=== PATIENT | female | born 1995 | race Caucasian/White ===

== ENCOUNTER 2021-02-11 07:03 | Inpatient (IN) | payer BC, SELFPAY ==
[2021-02-11] VITALS (43 sets, daily range): BP systolic 96–142; BP diastolic 48–108; PULSE 62–109; RESP 18; TEMP 36.4–36.9; O2SAT 99–100; BMI 23.4
--- NOTE | 2021-02-11 07:27 | WPDOBADMIT ---
Obstetrics - Admit Note Admission Note: record reviewed. No pertinent additions to the history and/or any subsequent changes in the physical findings that are not consistent with the expected course of the were found. Pt arrived after SROM at home, clear fluid, anticipate vaginal delivery Additions to the history and/or subsequent changes in the physical findings follow. None.
--- NOTE | 2021-02-11 07:36 | LDADM ---
This patient, Traci Campoverde, was admitted to Labor/Delivery/Recovery 108 on 02/11/21 at 07:03. Plans for labor, pain management and were discussed with patient. Patient/family oriented to hospital policies and general routines including ID bracelet, bed and alarms, visiting hours, pain management, procedures, bathroom and other care routines, personal items, smoking policy, room service/diet and guest tray routines, security routines, and visiting hours. Patient/Family are encouraged to report perceived risks to care and to ask questions if they do not understand what they are told or what they should do. See OBIX for further documentation.
[2021-02-11 07:56] LABS: Basophils Percent Auto 0.6 % (0.2-1.2); Eosinophils Absolute Auto 0.1 K/mm3 (0-0.3); Eosinophils Percent Auto 1.5 % (0-4.4); Hematocrit 34.8 % (37.0-47.0); Hemoglobin 11.4 g/dL (12.0-15.0); Immature Granulocyte Absolute 0.01 K/mm3 (0.00-0.031); Immature Granulocyte Percent A 0.1 % (0-0.5); Lymphocytes Absolute Auto 2.34 K/mm3 (0.9-3.2); Lymphocytes Percent Auto 34.1 % (18.3-44.2); Mean Corpuscular HGB Conc 32.8 g/dl (32-36); Mean Corpuscular Hemoglobin 31.6 pg (26-34); Mean Corpuscular Volume 96.4 fl (80-100); Mean Platelet Volume 12.4 fl (7.4-10.4); Monocytes Absolute Auto 0.5 K/mm3 (0.1-0.6); Monocytes Percent Auto 7.6 % (2.6-8.5); Neutrophils Absolute Auto 3.9 K/mm3 (1.3-6.7); Neutrophils Percent Auto 56.1 % (45.5-73.1); Platelet Count Result 133 k/mm3 (150-375); Red Blood Count 3.61 M/mm3 (4.2-5.4); Red Cell Distribution Width 12.2 % (11.5-14.5); White Blood Count 6.9 K/mm3 (4.5-10.0)
[2021-02-11] MEDS: LACTATED RINGERS 1,000 ML 125 ML IV CONT ×2 (09:00→09:25)
--- NOTE | 2021-02-11 09:25 | WPDANESEPP ---
Anes - Eval Pre Procedure Procedure: labor epidural Date/Time: 02/11/21 09:25 Surgeon: sabrina Pre Op Diagnosis: Leaking Fluid Patient Data Age: 25 Gender: F Height: 1.6 m Weight: 60 kg Last Vital Signs Temp 36.4 C 02/11/21 08:00 Pulse 67 02/11/21 09:15 BP 136/89 02/11/21 09:15 Allergies Allergy/AdvReac Type Severity Reaction Status Date / Time No Known Allergies Allergy Unverified 07/13/15 18:36 Home Medications Medication Instructions Recorded Confirmed Type PNV cmb#95-ferrous fumarate-FA 1 tablet PO DAILY 02/03/21 02/11/21 History [] ferrous sulfate [Iron (ferrous 325 mg PO DAILY 02/03/21 02/11/21 History sulfate)] Laboratory Tests 02/11/21 02/11/21 02/11/21 07:26 07:26 07:26 WBC 6.9 K/mm3 K/mm3 (4.5-10.0) RBC 3.61 M/mm3 L M/mm3 (4.2-5.4) Hgb 11.4 g/dL L g/dL (12.0-15.0) Hct 34.8 % L % (37.0-47.0) MCV 96.4 fl fl (80-100) MCH 31.6 pg pg (26-34) MCHC 32.8 g/dl g/dl (32-36) RDW 12.2 % % (11.5-14.5) Plt Count 133 k/mm3 L k/mm3 (150-375) MPV 12.4 fl H fl (7.4-10.4) Immature Gran % (Auto) 0.1 % % (0-0.5) Neut % (Auto) 56.1 % % (45.5-73.1) Lymph % (Auto) 34.1 % % (18.3-44.2) [place] % (Auto) 7.6 % % (2.6-8.5) Eos % (Auto) 1.5 % % (0-4.4) Baso % (Auto) 0.6 % % (0.2-1.2) Lymph # (Auto) 2.34 K/mm3 K/mm3 (0.9-3.2) [place] # (Auto) 0.5 K/mm3 K/mm3 (0.1-0.6) Eos # (Auto) 0.1 K/mm3 K/mm3 (0-0.3) Baso # (Auto) 0.0 K/mm3 K/mm3 (0.0-0.1) Abs Immat Gran (auto) 0.01 K/mm3 K/mm3 (0.00-0.031) Absolute Neuts (auto) 3.9 K/mm3 K/mm3 (1.3-6.7) Absolute Nucleated RBC 0.0 K/mm3 K/mm3 (0.0-0.012) Nucleated RBC % 0.0 % % (0.0-0.2) RPR Pending Blood Type O Positive Antibody Screen Negative Patient hx anesthesia problems: none Family hx anesthesia problems: none COUNTS INCLUDE 234 BEDS AT THE [facility] Family History Family History (Updated 02/03/21 @ 15:43 by Jory Wilson RN) Other No pertinent family history Social History Social History Smoking status: Never smoker Substance use: never Gender identity (if verbalized by the patient): Female Spiritual care concerns: No Exam Day of Procedure 02/11/21 09:25
--- NOTE | 2021-02-11 11:33 | PM.OBPRVD ---
OB - Delivery Note Procedure Delivery date: 02/11/21 Procedure: vaginal delivery Intrapartal events: None Induction method: none Delivery monitor: external FHT and external uterine Route of delivery: Laceration Description: Perineal - 2nd Degree and Labial (bilateral) Delivery repair: vicryl Specimen: Yes Quantitative Blood Loss (ml): 165 Anesthesia type: Epidural Disposition: floor Baby Date of : 02/11/21 Time of : 11:12 Weeks of gestation at delivery: 39 Infant gender: Female Weight (pounds): 5 Weight (ounces): 15 presentation: vertex position: Left Occiput Anterior Placenta delivery description: Spontaneous cord vessel description: 3 Vessels and Around Body x1 score one minute: 9 score five minutes: 9 Narrative: mother and baby skin to skin in stable condition
[2021-02-11] MEDS: LANOLIN (LANSINOH) 7.5 GM CREAM 1 APPLIC TOPICAL (14:30)
[2021-02-11] MEDS: DIBUCAINE 1% OINTMENT 30 GM TUBE 1 APPLIC TOPICAL (14:30)
[2021-02-11] MEDS: BENZOCAINE 20% AER SPR (*SP) 56 GM CAN 1 SPRAY TOPICAL (14:30)
[2021-02-11] MEDS: WITCH HAZEL 40 PADS 1 PAD TOPICAL (15:38)
[2021-02-11] MEDS: IBUPROFEN 600 MG TABLET PO (19:41)
[2021-02-12 01:00] VITALS: BP 92/44; PULSE 60; RESP 18; TEMP 36.6
[2021-02-12 04:37] VITALS: BP 105/64; PULSE 58; RESP 18; TEMP 36.6
[2021-02-12 05:09] LABS: Hematocrit 26.2 % (37.0-47.0); Hemoglobin 8.7 g/dL (12.0-15.0)
--- NOTE | 2021-02-12 07:36 | WPDANLDPN2 ---
Anes-Prog Note L&D Date/Time: 02/12/21 07:36 Comfortable throughout: labor and delivery Neuraxial method: epidural Epidural/Spinal procedure site: clean & non-tender Neuro status: Neuro function grossly intact. Cardiovascular status: normal Respiratory status: normal Airway patency: baseline Mental status: baseline Post-Op hydration status: normal Vital Signs: Last Vital Signs Temp 36.6 C 02/12/21 04:37 Pulse 58 L 02/12/21 04:37 Resp 18 02/12/21 04:37 BP 105/64 02/12/21 04:37 Pulse Ox 100 02/11/21 14:15 Pain score (VAS): 0 I/O: Intake & Output 02/11/21 02/11/21 02/12/21 15:59 23:59 07:59 Intake Total 2000 Output Total 165 Balance 1835 Post-procedural complaints: none Patient feedback: Patient satisfied with anesthetic care.
--- NOTE | 2021-02-12 07:52 | P.PNOB_ITS ---
OB - PN: Subj Subjective Date/time seen: 02/12/21 07:52 Patient comments: no complaints baby status: doing well OB - PN: Obj Data Labs CBC & Chem 7: 02/12/21 04:46 Labs: Laboratory Results - last 24 hr 02/11/21 02/11/21 02/12/21 07:26 07:26 04:46 WBC 6.9 RBC 3.61 L Hgb 11.4 L 8.7 L Hct 34.8 L 26.2 L MCV 96.4 MCH 31.6 MCHC 32.8 RDW 12.2 Plt Count 133 L MPV 12.4 H Immature Gran % (Auto) 0.1 Neut % (Auto) 56.1 Lymph % (Auto) 34.1 [place] % (Auto) 7.6 Eos % (Auto) 1.5 Baso % (Auto) 0.6 Lymph # (Auto) 2.34 [place] # (Auto) 0.5 Eos # (Auto) 0.1 Baso # (Auto) 0.0 Abs Immat Gran (auto) 0.01 Absolute Neuts (auto) 3.9 Absolute Nucleated RBC 0.0 Nucleated RBC % 0.0 Blood Type O Positive Antibody Screen Negative OB - PN A/P Plan day: 1 Plan: routine care Time Spent With Patient Time: Total time spent is greater than 50% in coordination of care (as docume nted) at patient's floor/unit and/or counseling patient: Time with patient: less than 15 minutes Review of Systems Review of Systems: All systems reviewed & are unremarkable except as noted in HPI and below Exam Narrative: Fundus firm and vaginal flow controlled. No lower ext redness, warmth, or edema. Negative homans. Const: General: comfortable Chest: Breast/axilla inspection: normal inspection of the breasts Resp: Effort & Inspection: normal respiratory effort Cardio: Rate: regular rate GI: GI Palp: Yes Soft to palpation Psych: Appearance: grossly normal Affect: normal affect Attitude: massage coordinator perative Thought content: Yes Normal thought content present Judgement: Good judgement present (Psych)
[2021-02-12 08:05] LABS: Rapid Plasma Reagin Non-Reactive (NonReactive)
[2021-02-12 08:10] VITALS: BP 115/54; PULSE 77; RESP 18; TEMP 37.2; O2SAT 100
[2021-02-12] MEDS: DOCUSATE SODIUM 100 MG CAPSULE PO ×2 (08:34→16:46)
[2021-02-12] MEDS: MULTIVIT/MIN/PREN/FOL AC/IRON TABLET 1 TAB PO (08:34)
[2021-02-12] MEDS: IBUPROFEN 600 MG TABLET PO ×2 (08:34→16:46)
[2021-02-12] MEDS: POLYSACCHARIDE IRON COMPLEX 150 MG CAPSULE PO ×2 (08:34→16:46)
--- NOTE | 2021-02-12 11:25 | PC.NURSE ---
Mother called out for assist with feeding, reporting is eagerly latching to left and not latching to right. Right nipple has a large natural center crease with less profile than left. Mother reports pain with latch bilaterally. Nipple care reviewed of lanolin after feedings, warm compresses as needed. Infant is able to freely thrust tongue past gum ridge and flange both lips. Skin is intact on both nipples, redness noted. Reviewed feeding cues, frequencies, duration of feedings, feeding elimination flow sheet, and signs of adequate intake. Demonstrated stimulation techniques to wake for feeding. Assisted with to breast. Reviewed positioning/alignment in cross cradle, holding breast in ?U? hold and guided asymmetrical latch on. Discussed rational for each. Suggested mother stimulate and roll right nipple to draw it out. Several attempts before infant able to latch correctly to right. Infant nursed eagerly, with steady draws and frequent swallowing noted. Suggested mother stimulate while feeding to increase stimulate, increase intake and to assist with maintaining deep latch. Reviewed signs of a correct latch, effective nursing and suck swallow ratio. Infant would slip to shallow latch, mother reports tenderness. Demonstrated how to adjust latch more deeply while feeding. Mother reports she can feel change in latch and has no tenderness. Instructed mother to call out for RN assistance if she is unable to latch for feeding or she has discomfort with nursing. Mother reports she is unsure if she will continue with nursing due to difficulties with latching. Discussed pumping and bottle feeding if she choose to switch.
[2021-02-12 12:30] LABS: Hematocrit 30.1 % (37.0-47.0); Hemoglobin 9.8 g/dL (12.0-15.0); Mean Corpuscular HGB Conc 32.6 g/dl (32-36); Mean Corpuscular Hemoglobin 31.9 pg (26-34); Mean Platelet Volume 11.8 fl (7.4-10.4); Platelet Count Result 124 k/mm3 (150-375); Red Blood Count 3.07 M/mm3 (4.2-5.4); Red Cell Distribution Width 12.3 % (11.5-14.5)
[2021-02-12 20:30] VITALS: BP 122/82; PULSE 72; RESP 15; TEMP 36.7; O2SAT 100
[2021-02-13 08:05] VITALS: BP 120/76; PULSE 64; RESP 16; TEMP 36.4; O2SAT 100
--- NOTE | 2021-02-13 08:06 | PM.OBPNVD ---
OB - PN: Subj Subjective Date/time seen: 02/13/21 08:06 Patient comments: no complaints baby status: doing well OB - PN: Obj Data Labs CBC & Chem 7: 02/12/21 12:19 Labs: Laboratory Results - last 24 hr 02/12/21 12:19 WBC 10.0 RBC 3.07 L Hgb 9.8 L Hct 30.1 L MCV 98.0 MCH 31.9 MCHC 32.6 RDW 12.3 Plt Count 124 L MPV 11.8 H OB - PN A/P Plan day: 2 Plan: routine care and discharge home (F/U in 4 weeks) Time Spent With Patient Time: Total time spent is greater than 50% in coordination of care (as documented) at patient's floor/unit and/or counseling patient: Time with patient: less than 15 minutes Review of Systems Review of Systems: All systems reviewed & are unremarkable except as noted in HPI and below Exam Narrative: Fundus firm and vaginal flow controlled. No lower ext redness, warmth, or edema. Negative homans. Const: General: comfortable Chest: Breast/axilla inspection: normal inspection of the breasts Resp: Effort & Inspection: normal respiratory effort Cardio: Rate: regular rate GI: GI Palp: Yes Soft to palpation Psych: Appearance: grossly normal Affect: normal affect Attitude: cooperative Thought content: Yes Normal thought content present Judgement: Good judgement present (Psych)
--- NOTE | 2021-02-13 08:45 | PC.NURSE ---
Consult with pt., mother reports she had a difficult night with latching and pain with feedings. Both nipples are reddened, reviewed nipple care of lanolin after feeding and before pumping, warm compresses several times a day and gel pads to promote healing. Mother reports she continues to have more difficulties and discomfort with latch to right breast. Mother states she will put infant to breast on left breast and will pump and bottle feed when is to feed on right breast until nipple is healed. Discussed supplementation and paced feeding, reviewed may require supplement after feeding on left breast if she is not putting to right breast. Mother will supplement as infant desires. Mother has a Spectra pump for home use and does not wish to initiate pumping in the hospital. Reviewed breast pump care and usage, pumping schedule, nipple care, and collection and storage of breast milk. Encouraged [id number], breast massage and manual expression to stimulate supply. Assessed patient for correct flange size(suggested mother try the 24mm and advised most likely a 21mm), placement and draw. Patient verbalizes and demonstrates understanding of instructions. Mother to independently latch with appropriate positioning/alignment on left breast. She is feeding as required and waking infant to feed if needed. has had at least 8 feedings in the past 24 hours with supplementation, and is currently meeting outcomes for weight, output, jaundice and feeding frequencies. Mother states she feels confident to continue effective at home. Reviewed transition to breast milk, signs of adequate intake, and engorgement/relief. Instructed to call ICP if intake/output less than required. Reviewed regular medications mother is taking. Information provided per [place]. Reviewed community resources on the [facility] website and in the Mom/Baby guide. Information on outpatient services provided. Mother has no further questions at this time.
[2021-02-13 12:44] VITALS: PULSE 64; RESP 16; O2SAT 100
[2021-02-15 09:49] VITALS: BP 106/73; PULSE 71; RESP 20; TEMP 37; O2SAT 100
--- NOTE | 2021-03-11 10:07 | PM.OBDSVD ---
DS: Admitting Diagnosis Admitting Diagnosis Labor OB - DS: Summary OB Procedures : None OB Procedures Intrapartum: Spontaneous Vag Delivery OB Procedures: : None Time Spent with Patient Time attestation: Total time spent providing and/or coordinating discharge services: DS: Data Data Completed and Pending Completed studies during hospitalization: Pending at discharge 02/11/21 11:45 Surgical [PTH] Routine Discharge Plan Discharge Attending physician on discharge: Lorie Duran Consulting providers: Lorie Duran ; Nanci Yu Discharging Clinician: Nanci Yu Patient Disposition: Home, Self-Care Activity: pelvic rest Diet: as tolerated Discharge Instructions: Education: Mom and Baby Guide Given to: Mother Follow-Up: Call your delivering provider's office for an appointment to be seen in: 4 Weeks Mom and baby should come to the [facility] for the follow-up appointment. Appointment Date/Time: February 15, 2021 at 9:00 am What to expect at your follow-up visit: Blood Pressure Check Physical Assessment Call [phone] if you are unable to keep your appointment time. BREAST CARE: * Wear a snug supportive bra. * For engorgement discomfort: Breast Feeding: * Apply warm moist washcloths * Express milk as needed to relieve engorgement * Wear loose clothing * For sore nipples: * Identify correct latch-on * Apply warm moist washcloths before and after nursing * Air dry nipples after nursing * May apply Lansinoh cream to nipples EPISIOTOMY/PERINEAL CARE: * Until bleeding stops, use your fercho bottle after urinating * Change your pad frequently throughout the day * You may take sitz baths several times a day (fill your bathtub with warm water and soak for 20 minutes.) Do NOT bathe in the water * No tub baths until seen by your physician - You may shower ACTIVITY: * Rest as much as possible. * Do not exercise or lift anything heavier than your baby (such as laundry or other children.) * Avoid stairs or driving as much as possible. * Do not put anything into the vagina. No douching, tampons, or sexual activity until seen by physician. NOTIFY PHYSICIAN IF YOU HAVE ANY QUESTIONS OR IF ANY OF THE FOLLOWING SYMPTOMS OCCUR: * If your vaginal area becomes red, swollen, or more painful than what you have experienced in the hospital. * If your vaginal bleeding becomes foul smelling. * If your vaginal bleeding becomes more heavy than a period or if your bleeding changes from pink to bright red. However, you may pass an occasional walnut-sized clot once or twice for the first week . * If you experience a sharp, shooting pain in your calves. * If you discover a hard, reddened area on your breast or if you experience flu-like symptoms. DIET: * Eat regular, well-balanced meals. * Drink plenty of fluids daily. If , drink to thirst. Patient Instructions: Vaginal Delivery (DC) Stand Alone Forms: General Discharge Information Follow-up/Referrals: Lorie Duran CNM [Certified Nurse Communications Controller] - Discharge Medications: Continued PNV cmb#95-ferrous fumarate-FA [] 28 mg iron- 800 mcg Tablet 1 tablet PO DAILY RF: 0 ferrous sulfate [Iron (ferrous sulfate)] 325 mg (65 mg iron) Tablet 325 mg PO DAILY RF: 0 Date of admission: 02/11/21 07:03 Primary Care Provider: PHYSICIAN,CONTAINER SHOP WELDER Admitting Provider: Heather Pollock Attending physician on admission: Heather Pollock Condition: Stable
== END 2021-02-13 13:58 | disposition home or self-care (01) | DRG 807 ==
LOC: ANHLDR 07:20 → ANHOB2 14:18
PROVIDERS: Advanced Practice Midwife; Admitting Provider Obstetrics & Gynecology; Visit Provider Obstetrics & Gynecology
DX: O69.2XX0 Labor and delivery complicated by other cord entanglement, with compression, not applicable or unspecified (principal); Z37.0 Single live birth; O70.1 Second degree perineal laceration during delivery; Z3A.39 39 weeks gestation of pregnancy
CPT/HCPCS: 36415; 84112; 85014; 85018; 85025; 85027; 86592; 86850; 86900; 86901; 88307; A9270; J2795; J7120

== ENCOUNTER 2022-07-06 13:16 | Outpatient (RCR) | payer BC, SELFPAY | END 2022-10-04 23:59 | disposition home or self-care (01) | LOC: ANHOBOP 13:16 | PROVIDERS: Visit Provider Advanced Practice Midwife | DX: O20.0 Threatened abortion (principal); Z3A.00 Weeks of gestation of pregnancy not specified | CPT/HCPCS: 36415; 84702 ==

== ENCOUNTER 2023-05-29 21:31 | Inpatient (IN) | payer BC, SELFPAY ==
[2023-05-29] VITALS (24 sets, daily range): BP systolic 100–125; BP diastolic 52–80; PULSE 79–122; TEMP 36.6; O2SAT 98–100
--- NOTE | ~2023-05-29 | US_ITS ---
EXAMINATION: US OB limited DATE: 05/29/2023 22:54 INDICATION: Contractions during third trimester . Assess presentation. TECHNIQUE: Real-time ultrasound of the pelvis was performed. The interpreting radiologist was not pre sent for the study. COMPARISON: None. FINDINGS: There is a single living fetus in vertex presentation. The placenta is anterior and not low-lying. F etal heart rate is 159 beats per minute (bpm). The amniotic fluid index is 13.3 cm, which is normal ( 5th%-95%: 7.9-24.9 cm at 35 weeks estimated gestational age). IMPRESSION: 1. Single living fetus in vertex presentation with heart rate of 159 bpm. 2. Normal amniotic fluid index of 13.3 cm. Reviewed, dictated and finalized at location A. ERCIAL COLLECTOR IMPRESSION: 1. Single living fetus in vertex presentation with heart rate of 159 bpm . 2. Normal amniotic fluid index of 13.3 cm.
[2023-05-29 22:17] LABS: Appearance Urine Cloudy (Clear); Bacteria Urine None Seen /hpf; Bilirubin Urine Negative (Negative); Blood Urine Negative (Negative); Color Urine Yellow (Yellow); Glucose Urine UA Negative (Negative); Ketones Urine Trace mg/dL (Negative); Leukocyte Esterase Ur 1+ LEU/UL (NEGATIVE); Need Manual Microscopic Reviewed; Nitrate Urine Negative (Negative); Non Pathogenic Casts 0-2; Protein Urine Negative (Negative); RBC Urine 0-2 /hpf (0-2); Squamous Epithelial Cell Urine None seen /hpf (Few); Urobilinogen Urine 0.2 mg/dL (<2.0); WBC Urine 0-5 /hpf (0-3); pH Urine 7.5 (5.0-9.0)
[2023-05-29 22:18] LABS: Add Urine Microscopic? YES
[2023-05-29] MEDS: TERBUTALINE SULFATE 1 MG/ML VIAL 0.25 MG SUB-Q ×2 (22:38→23:17)
[2023-05-29] MEDS: NIFEdipine 10 MG CAPSULE PO (23:22)
[2023-05-30] VITALS (226 sets, daily range): BP systolic 84–122; BP diastolic 33–75; PULSE 68–139; RESP 16–18; TEMP 36.1–37.2; O2SAT 94–100; BMI 23.0
[2023-05-30] MEDS: BETAMETHASONE SOD PHOS/ACETATE 30 MG/5 ML VIAL 12 MG IM (00:07)
--- NOTE | 2023-05-30 00:16 | OBADM ---
This patient, Traci Campoverde, admitted to the OB room OB Post 115 for observation. Patient/family oriented to hospital policies and general routines including ID bracelet, bed and alarms, visiting hours, pain management, procedures, bathroom and other care routines, personal items, smoking policy, room service/diet, and visiting hours. Patient/Family are encouraged to report perceived risks to care and to ask questions if they do not understand what they are told or what they should do.
[2023-05-30] MEDS: AMPICILLIN 2 GM/NS 100 ML 2 GM/100 ML BAG IVPB (01:50)
[2023-05-30] MEDS: LACTATED RINGERS 1,000 ML 999 ML IV CONT ×2 (01:50→09:02)
[2023-05-30] MEDS: NIFEdipine 10 MG CAPSULE PO (04:14)
[2023-05-30] MEDS: LACTATED RINGERS 1,000 ML 125 ML IV CONT (04:14)
[2023-05-30] MEDS: AMPICILLIN 1 GM/NS 50 ML 1 GM/50 ML BAG IVPB ×2 (06:14→09:32)
[2023-05-30] MEDS: fentaNYL CITRATE INJ (*CRX) 100 MCG/2 ML VIAL 50 MCG IV PUSH (07:09)
--- NOTE | 2023-05-30 09:10 | LDADM ---
This patient, Traci Campoverde, was admitted to Labor/Delivery/Recovery 106 on 05/30/23 at 08:50. Plans for labor, pain management and were discussed with patient. Patient/family oriented to hospital policies and general routines including ID bracelet, bed and alarms, visiting hours, pain management, procedures, bathroom and other care routines, personal items, smoking policy, room service/diet and guest tray routines, security routines, and visiting hours. Patient/Family are encouraged to report perceived risks to care and to ask questions if they do not understand what they are told or what they should do. See OBIX for further documentation.
[2023-05-30 09:21] LABS: Basophils Percent Auto 0.1 % (0.2-1.2); Hematocrit 33.2 % (37.0-47.0); Hemoglobin 10.4 g/dL (12.0-15.0); Immature Granulocyte Absolute 0.05 K/mm3 (0.00-0.031); Immature Granulocyte Percent A 0.5 % (0-0.5); Lymphocytes Absolute Auto 0.85 K/mm3 (0.9-3.2); Lymphocytes Percent Auto 9.3 % (18.3-44.2); Mean Corpuscular HGB Conc 31.3 g/dl (32-36); Mean Corpuscular Hemoglobin 30.6 pg (26-34); Mean Corpuscular Volume 97.6 fl (80-100); Mean Platelet Volume 11.1 fl (7.4-10.4); Monocytes Absolute Auto 0.1 K/mm3 (0.1-0.6); Monocytes Percent Auto 0.9 % (2.6-8.5); Neutrophils Absolute Auto 8.2 K/mm3 (1.3-6.7); Neutrophils Percent Auto 89.2 % (45.5-73.1); Platelet Count Result 221 k/mm3 (150-375); Red Cell Distribution Width 13.4 % (11.5-14.5); White Blood Count 9.1 K/mm3 (4.5-10.0)
--- NOTE | 2023-05-30 12:38 | WPDOBADMIT ---
Obstetrics - Admit Note Admission Note: record reviewed. No pertinent additions to the history and/or any subsequent changes in the physical findings that are not consistent with the expected course of the were found. Additions to the history and/or subsequent changes in the physical findings follow. pt admitted overnight for possible labor, aantibiotics and one dose steroids, SVE 9/100/0, AROM moderate amount of clear, odorless fluid None.
[2023-05-30] MEDS: OXYTOCIN 30 UNITS/NS 500 ML 30 UNITS/500 ML BAG 999 UNITS IV CONT (13:33)
--- NOTE | 2023-05-30 13:41 | P.PCNOB_ITS ---
OB - Vaginal Delivery Note Procedure Delivery date: 05/30/23 Events: Other (35.1 weeks gestation) Delivery augmentation: Rupture of Membranes Delivery monitor: External FHT and External Uterine Route of delivery: Laceration Description: Perineal - 1st Degree Delivery repair: vicryl Specimen: Yes Quantitative Blood Loss (ml): 50 Anesthesia type: Epidural Disposition: Floor [place] Baby Date of : 05/30/23 Time of : 13:31 Weeks of gestation at delivery: 35 Infant gender: Female presentation: vertex position: Other (OP) Placenta delivery description: Spontaneous Cord Vessel Description: 3 Vessels and Clamped/Cut Narrative: cord clamped and cut, baby to warmer, community center coordinator at
[2023-05-30] MEDS: OXYTOCIN 30 UNITS/NS 500 ML 30 UNITS/500 ML BAG 125 UNITS IV CONT (14:03)
[2023-05-30 15:18] LABS: Rapid Plasma Reagin Non-Reactive (NonReactive)
[2023-05-30] MEDS: IBUPROFEN 600 MG TABLET PO (16:01)
[2023-05-30] MEDS: ACETAMINOPHEN 325 MG TABLET 650 MG PO (16:02)
--- NOTE | 2023-05-30 16:10 | OBPPTRN ---
Patient transferred to post room # 284 via wheelchair. Support person present. Oriented to unit, room, information board, rooming in, admission packet and security measures. Patient verbalizes understanding.
--- NOTE | 2023-05-30 16:24 | P.DS_ITS ---
DS: Admitting Diagnosis Discharge Date 05/30/23 Admitting Diagnosis labor DS: Discharge Diagnosis Discharge Diagnosis (1) labor: Code(s): O60.00 - labor without delivery, unspecified trimester Status: Acute (2) Vaginal delivery: Code(s): O80 - Encounter for full-term uncomplicated delivery Status: Acute OB - DS: Summary OB Procedures : None OB Procedures Intrapartum: Spontaneous Vag Delivery OB Procedures: : None Peripartum Data Laceration Description: Perineal - 1st Degree Time Spent with Patient Time attestation: Total time spent providing and/or coordinating discharge services: DS: Data Data Completed and Pending Pending studies at discharge: Pending at discharge 05/30/23 13:33 Surgical [PTH] Routine Labs on day of discharge: Labs from last 24 hours 05/30/23 05/29/23 09:01 21:55 WBC 9.1 RBC 3.40 L Hgb 10.4 L Hct 33.2 L MCV 97.6 MCH 30.6 MCHC 31.3 L RDW 13.4 Plt Count 221 D MPV 11.1 H Immature Gran % (Auto) 0.5 Neut % (Auto) 89.2 H Lymph % (Auto) 9.3 L [place] % (Auto) 0.9 L Eos % (Auto) 0.0 Baso % (Auto) 0.1 L Lymph # (Auto) 0.85 L [place] # (Auto) 0.1 Eos # (Auto) 0.0 Baso # (Auto) 0.0 Abs Immat Gran (auto) 0.05 H Absolute Neuts (auto) 8.2 H Absolute Nucleated RBC 0.0 Nucleated RBC % 0.0 Urine Color Yellow Urine Appearance Cloudy H Urine pH 7.5 Ur Specific [place] 1.010 Urine Protein Negative Urine Glucose (UA) Negative Urine Ketones Trace H Ur Blood (Man) Negative Urine Nitrate Negative Urine Bilirubin Negative Urine Urobilinogen 0.2 Ur Leukocyte Esterase 1+ H Add Ur Microanalysis Reviewed Urine RBC 0-2 Urine WBC 0-5 Ur Squamous Epith Cells None seen Urine Bacteria None seen Urine Casts 0-2 RPR Non-reactive Blood Type O Positive Antibody Screen Negative Discharge Plan Discharge Attending physician on discharge: Heather Pollock Discharging Clinician: Lorie Duran Patient Disposition: Home, Self-Care Activity: pelvic rest Diet: regular Patient Instructions: Antibiotic Form Stand Alone Forms: General Discharge Information Follow-up/Referrals: Lorie Duran CNM [Certified Nurse Cop Breaker] - 4 Weeks Discharge Medications: New ibuprofen 600 mg Tablet 600 mg PO Q6H PRN (Reason: Cramping) Qty: 30 0RF Continued PNV cmb#95-ferrous fumarate-FA [] 28 mg iron- 800 mcg Tablet 1 tablet PO DAILY ferrous sulfate [Iron (ferrous sulfate)] 325 mg (65 mg iron) Tablet 325 mg PO DAILY Date of admission: 05/30/23 08:50 Primary Care Provider: PHYSICIAN,PHARMACY MESSENGER Admitting Provider: Heather Pollock Attending physician on admission: Heather Pollock Condition: Stable
--- NOTE | 2023-05-30 16:25 | P.PNOB_ITS ---
OB - PN: Subj Subjective Date/time seen: 05/30/23 16:25 Interval history: pt desires discharge, baby transferred to [facility] no hx medical complications bleeding minimal currently no pain precautions reviewed and f/u will be scheduled OB - PN: Obj Data Labs 05/30/23 09:01 Labs: Laboratory Results - last 24 hr 05/29/23 05/30/23 21:55 09:01 WBC 9.1 RBC 3.40 L Hgb 10.4 L Hct 33.2 L MCV 97.6 MCH 30.6 MCHC 31.3 L RDW 13.4 Plt Count 221 D MPV 11.1 H Immature Gran % (Auto) 0.5 Neut % (Auto) 89.2 H Lymph % (Auto) 9.3 L [place] % (Auto) 0.9 L Eos % (Auto) 0.0 Baso % (Auto) 0.1 L Lymph # (Auto) 0.85 L [place] # (Auto) 0.1 Eos # (Auto) 0.0 Baso # (Auto) 0.0 Abs Immat Gran (auto) 0.05 H Absolute Neuts (auto) 8.2 H Absolute Nucleated RBC 0.0 Nucleated RBC % 0.0 Urine Color Yellow Urine Appearance Cloudy H Urine pH 7.5 Ur Specific [place] 1.010 Urine Protein Negative Urine Glucose (UA) Negative Urine Ketones Trace H Ur Blood (Man) Negative Urine Nitrate Negative Urine Bilirubin Negative Urine Urobilinogen 0.2 Ur Leukocyte Esterase 1+ H Add Ur Microanalysis Reviewed Urine RBC 0-2 Urine WBC 0-5 Ur Squamous Epith Cells None seen Urine Bacteria None seen Urine Casts 0-2 RPR Non-reactive Blood Type O Positive Antibody Screen Negative Imaging Radiologist's impression: Impressions Obstetrics Ultrasound 05/29/23 23:00 IMPRESSION: 1. Single living fetus in vertex presentation with heart rate of 159 bpm. 2. Normal amniotic fluid index of 13.3 cm. OB - PN A/P Time Spent With Patient Time: Total time spent is greater than 50% in coordination of care (as documented) at patient's floor/unit and/or counseling patient: Review of Systems Review of Systems: All systems reviewed & are unremarkable except as noted in HPI and below Exam Const: General: cooperative, healthy appearing and comfortable Resp: Effort & Inspection: normal respiratory effort Cardio: Rate: regular rate Skin: General skin exam: normal color Extrem: General: normal to inspection Psych: Appearance: grossly normal
[2023-06-02 08:55] VITALS: BP 116/68; PULSE 73; RESP 18; TEMP 37; O2SAT 100
== END 2023-05-30 22:01 | disposition home or self-care (01) | DRG 807 ==
LOC: ANHOBPP 21:36 → ANHLDR 05-30 08:54 → ANHOB2 05-30 16:10
PROVIDERS: Advanced Practice Midwife; Admitting Provider Obstetrics & Gynecology; Visit Provider Obstetrics & Gynecology
DX: O60.14X0 Preterm labor third trimester with preterm delivery third trimester, not applicable or unspecified (principal); Z37.0 Single live birth; O70.0 First degree perineal laceration during delivery; Z3A.35 35 weeks gestation of pregnancy
CPT/HCPCS: 36415; 76815; 81001; 85025; 86592; 86850; 86900; 86901; 87086; 96361; 96365; 96372; 96375; A9270; G0378; G0379; J0290; J0702; J2590; J2795; J3010; J3105; J7120

== ENCOUNTER 2023-08-06 16:11 | Emergency (ER) | payer BC, SELFPAY ==
[2023-08-06 16:16] VITALS: BP 139/83; PULSE 87; RESP 18; TEMP 36.6; O2SAT 100
--- NOTE | 2023-08-06 16:25 | ED.URI ---
HPI - URI/Sore Throat General Chief Complaint: Upper Respiratory Infection Stated Complaint: throat/cough/dizzy Time Seen by Provider: 08/06/23 16:25 Source: patient Mode of arrival: ambulatory Limitations: no limitations History of Present Illness HPI Narrative: 28 yo F presents with c/o dizziness, nasal congestion, bilateral ear pain, PND, dry cough and tickle in throat for 2 days. Concerned for covid. Has 9 wk old baby at home and does not want to get them sick. Afebrile. No CP or SOB. All systems reviewed and negative except as noted above. Related Data Home Medications Medication Instructions Recorded Confirmed ferrous sulfate 325 mg (65 mg 325 mg PO DAILY 02/03/21 05/30/23 iron) tablet (Iron (ferrous sulfate)) vit no.95-ferrous 1 tablet PO DAILY 02/03/21 05/30/23 fumarate 28 mg-folic acid 800 mcg tablet () Allergies Allergy/AdvReac Type Severity Reaction Status Date / Time No Known Allergies Allergy Unverified 07/13/15 18:36 Review of Systems Review of Systems: CONSTITUTIONAL: Denies fever, chills, or sweats. EYES: Denies visual changes, redness, or discharge. ENT: Reports rhinorrhea, congestion, postnasal drainage, to call to throat, bilateral ear pain. Denies sore throat CARDIOVASCULAR: Denies chest pain, palpitations, or edema. RESPIRATORY: Reports dry cough. Denies dyspnea. GASTROINTESTINAL: Denies abdominal pain, nausea, vomiting, or diarrhea. GENITOURINARY: Denies dysuria or hematuria. SKIN: Denies rash or itching. MUSCULOSKELETAL: Denies back pain, joint pain, or myalgia. NEUROLOGIC: Denies headache, numbness, or weakness. PSYCHIATRIC: Denies anxiety or depression. All other systems reviewed are negative, except as documented in HPI. [facility] Family History Family History (Updated 02/03/21 @ 15:43 by Jory Wilson RN) Other No pertinent family history Social History Social History Smoking status: Never smoker Second hand tobacco smoke exposure: No Substance use: never Lack of Transportation: No Lack of Food: Never True Current Housing: I Have Housing Concerned About Future Housing: No Difficulty Paying Gas/Electric Bills: No Difficulty Paying for Meds: No Currently Unemployed: No Education: Trade/Vocational Certificate Difficulty w/ Childcare or Family Care: No Gender identity (if verbalized by the patient): Female Spiritual care concerns: No Comments At time of signature, agree with nursing past medical, surgical, social and family history. There is no relevant family history pertinent to the presenting complaint. Exam Narrative: GENERAL: This is a well-nourished, well-developed patient, in no apparent distress. HEAD: normocephalic, atraumatic. EYES: PERRL. Sclera clear/white. Vision is grossly intact. EARS: External ears normal, auditory canals clear and without drainage, clear fluid bilateral TMs without erythema or perforation. Hearing grossly intact. NOSE: External nose normal with clear nasal drainage THROAT: Mucous membranes moist, clear postnasal drainage without erythema or exudates to throat. NECK: Neck supple, non-tender without lymphadenopathy, masses or thyromegaly. CARDIOVASCULAR: Regular rate and rhythm without murmurs, gallops, or rubs. RESPIRATORY: Clear to auscultation. Breath sounds equal bilaterally. No wheezes, rales, or rhonchi. SKIN: warm, Dry, intact with no suspicious lesions or rash, good texture and turgor. NEURO: awake, alert, and oriented to person, place and time. There were no obvious focal neurologic abnormalities. EXTREMITIES: No joint tenderness, effusion, or edema noted. Course Course Level of Care: Express Care Visit Vital Signs Vital signs: Vital Signs Temperature 36.6 C 08/06/23 16:16 Pulse Rate 87 08/06/23 16:16 Respiratory Rate 18 08/06/23 16:16 Blood Pressure 139/83 08/06/23 16:16 Pulse Oximetry 100 08/06/23 16:16 Oxygen Delivery Room Air 01
== END 2023-08-06 16:57 | disposition home or self-care (01) ==
PROVIDERS: Emergency Provider Nurse Practitioner Family
DX: J01.90 Acute sinusitis, unspecified (principal); R42 Dizziness and giddiness; Z20.822 Contact with and (suspected) exposure to COVID-19
CPT/HCPCS: 87081; 87426; 87880; 99213; G0463

== ENCOUNTER 2023-12-03 08:16 | Emergency (ER) | payer BC, SELFPAY ==
--- NOTE | 2023-12-03 08:20 | ED.URI ---
HPI - URI/Sore Throat General Chief Complaint: Upper Respiratory Infection Stated Complaint: throat Time Seen by Provider: 12/03/23 08:35 Source: patient and RN notes reviewed Mode of arrival: ambulatory Limitations: no limitations History of Present Illness HPI Narrative: 28-year-old female presents with concern for sore throat for 2 days. She reports she has been taking DayQuil. She denies fever, body aches, chills, sweats, headache, stomach ache. She reports she is going out of the country tomorrow. MD elicited complaint: sore throat Related Data Allergies Allergy/AdvReac Type Severity Reaction Status Date / Time No Known Allergies Allergy Unverified 07/13/15 18:36 Review of Systems Review of Systems: CONSTITUTIONAL: Denies malaise, chills, sweats, or fever. EYES: Denies visual changes, redness, or discharge. ENT: Denies rhinorrhea, congestion, sinus pain, otalgia. Reports sore throat. CARDIOVASCULAR: Denies chest pain, palpitations, or edema. RESPIRATORY: Denies cough. Denies dyspnea. GASTROINTESTINAL: Denies abdominal pain, nausea, vomiting, diarrhea SKIN: Denies rash or itching. MUSCULOSKELETAL: Denies myalgia. NEUROLOGIC: Denies headache. All systems reviewed & are unremarkable except as noted in HPI and below PMFSH Family History Family History (Updated 02/03/21 @ 15:43 by Jory Wilson, CINDY) Other No pertinent family history Social History Social History Smoking status: Never smoker Second hand tobacco smoke exposure: No Substance use: never Lack of Transportation: No Lack of Food: Never True Current Housing: I Have Housing Concerned About Future Housing: No Difficulty Paying Gas/Electric Bills: No Difficulty Paying for Meds: No Currently Unemployed: No Education: Trade/Vocational Certificate Difficulty w/ Childcare or Family Care: No Gender identity (if verbalized by the patient): Female Spiritual care concerns: No Comments At time of signature, agree with nursing past medical, surgical, social and family history. There is no relevant family history pertinent to the presenting complaint Exam Narrative: GENERAL: Well-appearing, well-nourished, and in no acute distress. HEAD: Normocephalic EYES: PERRLA, conjunctivae clear ENT: Nares clear. Mucous membranes moist. TM pearly olson with sharp light reflex bilaterally; no tragal tenderness. Oropharynx not erythematous without lesions. Tonsils not enlarged and without exudate, no drooling, no hoarseness, no trismus, uvula midline. NECK: Supple. No lymphadenopathy CHEST: Clear to auscultation, breath sounds equal. No wheezing, rhonchi, rales, or stridor. No respiratory distress, speaks in full sentences. HEART: Regular rate and rhythm. No murmur heard. SKIN: Warm, dry, no rash. NEURO: Alert and oriented x3. PSYCH: Normal mood and affect Course Course Emergency Course: Patient is aware of diagnosis, understands and agrees to treatment plan. Anticipatory guidance given. Patient agrees to follow-up as directed and is aware of reasons to seek care at the emergency department. Portions of this record may have been created with voice recognition software Level of Care: Express Care Visit Vital Signs Vital signs: Reviewed. MDM - URI/Sore Throat MDM Narrative Medical decision making narrative: Differential diagnosis considered: Rosenberg virus, strep pharyngitis, allergic rhinitis, upper respiratory tract infection, sinusitis, rhinosinusitis, nasopharyngitis. viral pharyngitis, otitis media, otitis externa, pneumonia, bronchitis, viral cough syndrome, viral syndrome, and influenza. Exam findings show no acute concerns or changes; patient is non-toxic appearing and is in no distress. Patient is appropriate for outpatient treatment and follow-up. Lab Data Attestation: I reviewed the patient's lab results. Critical Care Time Critical Care Time Critical Care Time: No Discharge Plan Discharge Clinical Impression
[2023-12-03 08:21] VITALS: BP 127/87; PULSE 102; RESP 16; TEMP 36.9; O2SAT 100
== END 2023-12-03 08:52 | disposition home or self-care (01) ==
PROVIDERS: Emergency Provider Nurse Practitioner
DX: J02.9 Acute pharyngitis, unspecified (principal)
CPT/HCPCS: 87081; 87880; 99213; G0463

== ENCOUNTER 2024-01-10 08:36 | Emergency (ER) | payer BC, SELFPAY ==
[2024-01-10 08:48] VITALS: BP 121/79; PULSE 105; RESP 16; TEMP 36.8; O2SAT 98
--- NOTE | 2024-01-10 09:38 | ED.GENADULT ---
HPI - General Adult General Chief complaint: Ear Stated complaint: head congestion/popping ear Source: patient Mode of arrival: ambulatory Limitations: no limitations History of Present Illness HPI narrative: Patient presents for evaluation of sick symptoms for last 2 days. Symptoms include frontal headache, sinus congestion, mucopurulent discharge from the nares, pain and a popping sensation in left ear. She denies any fever, chills, nausea, vomiting, cough, shortness of breath. No recent sick contacts to her knowledge. She does not smoke. She is not taking any medication to assist with her symptoms. Related Data Allergies Allergy/AdvReac Type Severity Reaction Status Date / Time No Known Allergies Allergy Unverified 07/13/15 18:36 Review of Systems Review of Systems: CONSTITUTIONAL: Denies fever, chills, or sweats. EYES: Denies visual changes, redness, or discharge. ENT: Reports sinus congestion, green nasal drainage, pain and popping sensation in the left ear CARDIOVASCULAR: Denies chest pain, palpitations, or edema. RESPIRATORY: Denies cough or dyspnea. GASTROINTESTINAL: Denies abdominal pain, nausea, vomiting, or diarrhea. GENITOURINARY: Denies dysuria or hematuria. SKIN: Denies rash or itching. MUSCULOSKELETAL: Denies back pain, joint pain, or myalgia. NEUROLOGIC:Reports headache. Denies numbness, dizziness, or weakness. PSYCHIATRIC: Denies anxiety or depression. [facility]LY [facility], [facility] Past Medical History Medical History No pertinent past medical history Surgical History Surgical History No pertinent past surgical history Family History Family History Other No pertinent family history Social History Social History Smoking status: Never smoker Second hand tobacco smoke exposure: No Substance use: never Lack of Transportation: No Lack of Food: Never True Current Housing: I Have Housing Concerned About Future Housing: No Difficulty Paying Gas/Electric Bills: No Difficulty Paying for Meds: No Currently Unemployed: No Education: Trade/Vocational Certificate Difficulty w/ Childcare or Family Care: No Gender identity (if verbalized by the patient): Female Spiritual care concerns: No Exam Narrative: GENERAL: Well-appearing, well-nourished, and in no acute distress. HEAD: Normocephalic, atraumatic. EYES: PERRLA and EOMI. ENT: There is frontal and bilateral maxillary sinus tenderness. Left TM is erythematous and bulging. Right TM is pearly olson NECK: Supple. No adenopathy or masses. No carotid bruits or JVD CHEST: Clear to auscultation. No respiratory distress. No wheezes rales or rhonchi HEART: Regular rate and rhythm. No murmur heard. Normal peripheral pulses. ABDOMEN: Soft, nontender, nondistended, normal active bowel sounds. EXTREMITIES: Normal range of motion. No edema. SKIN: Warm, dry, no rash. NEURO: No focal deficits. Alert and oriented x3. PSYCH: Normal mood and affect. Course Course Emergency Course: This is a 28-year-old female who presented for evaluation of sinus congestion, mucopurulent discharge from the nares, left-sided otalgia with a popping sensation as well. She has evidence of otitis media and meets criteria for bacterial sinusitis based upon mucopurulent discharge from the nares. Will discharge with Augmentin. Increase hydration. Sudafed should help. Over the counter medications as needed. Follow up with primary provider. Go to the ER for worsening symptoms. Pt in agreement with plan of care. Level of Care: Express Care Visit Vital Signs Vital signs: Vital Signs Temperature 36.8 C 01/10/24 08:48 Pulse Rate 105 H 01/10/24 08:48 Respiratory Rate 16 01/10/24 08:48 Blood Pressure 121/79 01/10/24 08
== END 2024-01-10 09:43 | disposition home or self-care (01) ==
PROVIDERS: Emergency Provider Nurse Practitioner
DX: J32.9 Chronic sinusitis, unspecified (principal); H66.92 Otitis media, unspecified, left ear
CPT/HCPCS: 99213; G0463

== ENCOUNTER 2024-07-04 08:04 | Emergency (ER) | payer BC, SELFPAY ==
[2024-07-04 08:12] VITALS: BP 113/71; PULSE 76; RESP 16; TEMP 37.1; O2SAT 100
--- NOTE | 2024-07-04 08:19 | ED_ITS ---
HPI - URI/Sore Throat General Chief Complaint: Upper Respiratory Infection Stated Complaint: Sore Throat History of Present Illness HPI Narrative: Patient presents with a sore throat nasal congestion no cough no runny nose no trouble swallowing no drooling. Patient has been taking DayQuil and NyQuil for her symptoms symptoms started 3 days ago. Patient denies any fever and no body aches no concern for COVID or influenza. Related Data Allergies Allergy/AdvReac Type Severity Reaction Status Date / Time No Known Allergies Allergy Verified 07/04/24 08:19 Review of Systems Review of Systems: CONSTITUTIONAL: Denies chills, or sweats. Reports fever and generalized body aches EYES: Denies visual changes, redness, or discharge. ENT: Denies otalgia. Reports nasal congestion runny nose and sore throat CARDIOVASCULAR: Denies chest pain, palpitations, or edema. RESPIRATORY: Denies dyspnea. Reports occasional cough GASTROINTESTINAL: Denies abdominal pain, nausea, vomiting, or diarrhea. GENITOURINARY: Denies dysuria or hematuria. SKIN: Denies rash or itching. MUSCULOSKELETAL: Denies back pain, joint pain, or myalgia. Reports generalized body aches NEUROLOGIC: Denies headache, numbness, or weakness. PSYCHIATRIC: Denies anxiety or depression. [facility] Past Medical History Medical History No pertinent past medical history Surgical History Surgical History No pertinent past surgical history Family History Family History Other No pertinent family history Social History Social History Smoking status: Never smoker Second hand tobacco smoke exposure: No Substance use: never Lack of Transportation: No Lack of Food: Never True Current Housing: I Have Housing Concerned About Future Housing: No Difficulty Paying Gas/Electric Bills: No Difficulty Paying for Meds: No Currently Unemployed: No Education: Trade/Vocational Certificate Difficulty w/ Childcare or Family Care: No Gender identity (if verbalized by the patient): Female Spiritual care concerns: No Exam Narrative: The patient is a well-developed, well-nourished in no acute distress. SKIN: Skin is warm and dry without erythema, swelling or exudate. There is good turgor. No tenting. HEAD: Atraumatic. Normocephalic. No temporal or scalp tenderness. EYES: Moist and bright. Sclera and conjunctivae normal. No discharge. PERRLA. Extraocular motions intact. Gross visual acuity intact. EARS: Pinna is normal shape and contour. Clear external auditory canals. TM pearly bryan with good cone of light, no erythema or suppuration. Bilateral cerumen noted no gross hearing deficit. NOSE: pink, moist mucosa with good air movement. Clear rhinorrhea without nasal flaring. Septum midline. Mouth: moist mucous membranes. THROAT; mild erythema noted to posterior oropharynx with moderate postnasal drainage. Without exudate or ulceration.. Uvula midline. Normal movement of soft palate. NECK: Supple and nontender with full range of motion without discomfort. No meningeal signs. LUNGS: Equal and bilateral breath sounds without wheezes, rales or rhonchi. CHEST: The chest wall is without retractions or use of accessory muscles. HEART: Has a regular rate and rhythm without murmur, gallops, click or rub. ABDOMEN: Soft, nontender with positive active bowel sounds. No rebound tenderness. EXTREMITIES: Without cyanosis, clubbing or edema. Equal 2+ distal pulses and 2 second capillary refill noted. NEUROLOGIC: alert, active, . The patient moves all extremities with normal muscle strength. Normal muscle tone is noted. Normal coordination is noted. NO focal neurological findings noted. Course Course Level of Care: Express Care Visit Vital Signs Vital signs: Vital Signs Temperature 37.1 C 07/04/24 08:12 Pulse Rate 76 07/04/24 08:12 Respiratory Rate 16 07/04/24 08:12 Blood Pressure 113/71 07/04/24 08:12 Pulse Oximetry 100 07/04/24 08:12 Oxygen Delivery Room Air 07/04/24 08:12 Temperature 37.1 C 07/04/24 08:12 Pulse Rate 76 07/04/24 08:12 Respiratory Rate 16 07/04/24 08:12 Blood Pressure 113/71 07/04/24 08:12 Pulse Oximetry 100 07/04/24 08:12 Oxygen Delivery Room Air 07/04/24 08:12 Discharge Plan Discharge Clinical Impression: Pharyngitis, Upper respiratory infection Patient Disposition: Home, Self-Care Condition: Stable Additional Instructions: *Throw away your current toothbrush and begin using a new toothbrush in 48 hours in order to prevent re-infection. If anyone else's toothbrush is stored near yours, they should also throw away their current toothbrush and begin using a new one. *Sanitize all reusable water bottles. *Do not share items with others. *Wash your hands often. Supportive care/Soothing measures/Pain relief: *Avoid cigarette smoke (including secondhand smoke) *Avoid acidic foods and beverages *Eat a soft diet for the next 3-4 days *Salt water gargles may alleviate some of the throat discomfort. Most recipes call for ? to ? teaspoon of salt per 8 ounces (approximately 240 mL) of warm water. *You can take tylenol or ibuprofen per the package instructions for pain/fever. *Sipping cold or warm beverages (eg, tea with honey or lemon) *Eat cold or frozen desserts (eg, ice cream, popsicles) *Sucking on ice *Sucking on hard candy Viruses are everywhere and can spread like wildfire. Sx can last up to 3-4 weeks. Treatment is aimed toward your specific symptoms. You must treat your symptoms in order to feel better while the virus runs it's course. Increase fluids especially water. Do not share items with others. You can take Tylenol or ibuprofen per the package instructions for pain/fever. Wash your hands as often as possible. Purchase and begin using an over the counter antihistamine/decon gestant combo such as Zyrtec D, Wendy D, Claritin D as well as Flonase nasal spray per the package instructions. Salt water gargles may alleviate some of your throat discomfort. Go to the ER if your symptoms become worse of if ANY new symptoms develop congestion - flonase am and pm for chronic sinus congestion or prolonged symptoms of sinusitis (takes several days to work). one to three times a day of irrigation of sinus with saline spray, ocean nasal spray or sidney pot. fluids. if you don't have hypertension-afrin nasal spray with a 3 day limit for immediate relief of sinus congestion. for runny nose: do over the counter antihistamine (claritin, benadryl, zyrtec) for sneezing, runny nose. allergies. sudafed or decongestant can also be used, unless you have elevated blood pressure, nursing or . pineapple juice to help thin mucus pain and discomfort: over the counter treatment for pain - tylenol - with a max of 3 grams a day, not to take more than 3-4 days at this dose. discussed aleve - 1-2 am and pm with food. also not to take more than a few days if not improving. patient understands not to take ibuprofen or aleve without food. patient understands ibuprofen max is 4 pills 3 times a day, also not to take this amount for more than a few days if not improving. rest. -If you have any worsening of symptoms or any other concerns please go to the ED immediately. throat pain- gargling with salt water, throat losengers or chloraseptic spray may help with throat pain. if older than 2 years, cough- can try honey for cough if older than one year. mucinex, nyquil, dayquil, robitussin and other otc cold/cough medications can all be used in teenagers and adults with caution. do not mix or use multiple therapies without discussing with your doctor or pharmacy. steam from shower twice daily or cool mist humidifier. pineapple juice to help thin mucus eat yogurt 1-2 times daily or consider probiotics if on antibiotics. -If you have any worsening of symptoms or any other concerns please go to the ED immediately. Patient Language: Bhutanese Prescriptions: New loratadine [Claritin] 10 mg tablet 10 mg PO DAILY 14 Days Qty: 30 0RF dexamethasone 4 mg tablet 8 mg PO ONCE Qty: 2 0RF fluticasone propionate [Flonase Allergy Relief] 50 mcg/actuation spray,suspension 2 spray NASAL BID Qty: 9.9 0RF Rx Instructions: administer into each nostril Follow-up/Referrals: PHYSICIAN,ENGINEERING PRODUCTION LIAISON [Primary Care Provider] - Stand Alone Forms: Work/School Release IP
[2024-07-04 08:30] LABS: EDSTREPNEGPOS1 Negative (Negative)
--- OUTSIDE RECORDS SUMMARY | 2024-07-11 06:07 | XMS_ITS | Data Portability ---
Author Organization [facility] [place] Address [address] [place] [address] [place] [address] Assessment Encounter Date Assessment Date Assessment LastModified by Organization Details LastModified Time 04/25/2023 04/25/2023 Patient is _30__weeks . Discussed plan. Not available 04/25/2023 16:24:13 05/09/2023 05/09/2023 Patient is __32_weeks . Discussed plan. [email or web address] Not available 05/09/2023 12:00:16 05/21/2023 05/21/2023 Patient is __33_weeks . Discussed plan. Not available 05/21/2023 16:32:44 Plan of Treatment Reminders Order Date Submit Date Provider Last Modified By Organization Details Last Modified Time Details Appointments WELL WOMAN- EST 025 03:15PM Lorie Duran CNM Not available Not available Not available Lab None record ed. Referral None record ed. Procedures None record ed. Surgeries None record ed. Imaging US, obstet pauly, follow -up 023 05/09/20 23 [email or web address] [place], [address], [address], [place], [address], 05/09/2023 21:55:49 Medication Orders None record ed. Patient TargetsNo targets recorded. Patient InstructionsNo instructions recorded. Reason for Referral None Reported. Results Created Date Observation Date Name Description Value Unit Range Abnormal Flag Note LastModifiedBy Organization Detail LastModifiedTime 04/11/20 23 04/11/2023 HEMAT OCRIT (HCT) HCT 30.7 % (based on docume nted legal sex) 37.4-[address] [facility] (Lab) [address] [facility], [place], [address], 04/12/2023 07:26:50 04/11/20 23 04/11/2023 HEMOG LOBIN (HGB) HGB 10.0 g/dL (based on docume nted legal sex) 11.9-[address] [facility] (Lab) [address] [facility], [place], [address], 04/12/2023 07:26:51 04/11/20 23 04/11/2023 GTT - GESTA LETTY L SCREE N, ACOG OB glucose, 1 hour screen 94 mg/dL 70-139 Not Available [facility] (Lab) [address] [facility], [place], [address], 04/12/2023 07:26:51 04/11/2004/11/2023 HIV 1/2 ANTIG EN/AN TIBOD Y, REFLE X CONFI RMATI ON HIV antigen/anti body Nonrea ctive nonrea ctive HIV-1 antig en and HIV-1 /HIV- 2 antib odies were not detec abdiaziz. No labor atory evide nce of HIV infec tion. Not Available [facility] (Lab) [address] [facility], [place], [address], 04/12/2023 07:26:51 04/11/2004/11/2023 US, obste tric, follo w-up No observ ation record ed. [facility] [address], [place], [address], 04/11/2023 16:41:00 04/11/2004/11/2023 US, obste tric, follo w-up No observ ation record ed. [email or web address] [place] [address], [place], [address], 04/14/2023 10:39:05 05/09/2005/09/2023 US, obste tric, follo w-up No observ ation record ed. IOANA [place] [address], [place], [address], 05/12/2023 10:20:22 05/09/20 23 05/09/2023 US, obste tric, follo w-up No observ ation record ed. [facility] [address], [place], [address], 05/09/2023 18:03:25 05/30/2005/29/2023 US, obste tric, follo w-up No observ ation record ed. [address] [facility], [place], [address], 05/30/2023 10:48:13 05/30/2005/29/2023 US, obste tric, follo w-up No observ ation record ed. [address] [facility], [place], [address], 05/30/2023 10:50:49 Result Notes None recorded. Problems Name Problem SNOMED Code Status Onset Date Resolution Date Notes Provider Name and Address Organization Details Recorded Time 89299856 Completed 201902/19/2021 Jerry Jasso [facility], [facility] 3 13:53:08 Uterine size for dates discrepancy 810567487 Completed S< Aury Eric ehl null, [facility] 1 15:02:33 81208410 Completed 202206/19/2023 Jerry Jasso [facility], [facility] 3 13:53:07 Problem Notes None recorded. Procedures Surgical History Date Name Laterality Status Provider Name and Address Organization Details Recorded Time 11/29/2022 Date of Last Pap Smear completed Susan Davis [facility] 11/29/2022 16:37:08 Imaging Results Imaging Date Name Status LastModified by Organiz ation Details LastModified Time 04/11/2023 US, obstetric, follow-up completed [place] [address], [place], [address], 04/11/2023 16:41:00 04/11/2023 US, obstetric, follow-up completed [email or web address] [place] [address], [place], [address], 04/14/2023 10:39:05 05/09/2023 US, obstetric, follow-up completed IOANA [place] [address], [place], [address], 05/12/2023 10:20:22 05/09/2023 US, obstetric, follow-up completed [facility] [address], [place], [address], 05/09/2023 18:03:25 05/29/2023 US, obstetric, follow-up completed [address], [address], 05/30/2023 10:48:13 05/29/2023 US, obstetric, follow-up completed [address], [address], 05/30/2023 10:50:49 Procedure Notes None recorded. Medical Equipment None Reported. Allergies No known drug allergies Medications Name Sig Start Date Stop Date Status Note LastModified by Organization Details LastModified Time fluconazole 200 mg tablet TAKE 1 TABLET BY MOUTH 1 TIME PER WEEK FOR 2 WEEKS 07/11 completed Not Available Not Available Not Available cephalexin 500 mg capsule TAKE 1 CAPSULE BY MOUTH EVERY 12 HOURS 10/06 completed Not Available Not Available Not Available ibuprofen 600 mg tablet 600 MG ORALLY EVERY 6 HOURS NEEDED FOR CRAMPING active Not Available Not Available No t Available active Not Available Not Avai lable Not Available Vitals Date Recorded Body height Body mass index (BMI) Body weight Systolic blood pressure Diastolic blood pressure Provider Name and Address Organization Details Last Updated DateTime 04/25/2023 160.02 cm 23.2 kg/m2 02498.60 047 g 98 mm[Hg] 67 mm[Hg] Susan Davis [facility] 3 15:30:55 Date Recorded Body height Body mass index (BMI) Body weight Systolic blood pressure Diastolic blood pressure Provider Name and Address Organization Details Last Updated DateTime 05/09/2023 160.02 cm 23.4 kg/m2 34080.91 1314 g 106 mm[Hg] 71 mm[Hg] Laura Garcia [facility] 3 11:58:00 Date Recorded Body height Body mass index (BMI) Body weight Systolic blood pressure Diastolic blood pressure Provider Name and Address Organization Details Last Updated DateTime 05/21/2023 160.02 cm 23.9 kg/m2 75474.96 995 g 95 mm[Hg] 66 mm[Hg] Susan Davis [facility] 3 16:23:34 Date Recorded Body height Body mass index (BMI) Body weight Systolic blood pressure Diastolic blood pressure Provider Name and Address Organization Details Last Updated DateTime 07/04/2023 160.02 cm 20.5 kg/m2 77128.71 g 133 mm[Hg] 91 mm[Hg] Susan Davis [facility] 3 16:51:50 Social History Question Answer Notes LastModified by Organizat ion Details LastModified Time Tobacco Smoking Status Never Smoker Susan Davis [facility], [facility] 07/04/2023 17:04:29 Do You Have An Advance Directive? No [email or web address] Information not available 07/04/2023 What Is Your Level Of Alcohol Consumption? Occasional Information not available 07/04/2023 If You Are , What Was Your Level Of Alcohol Consumption Prior To ? Occasional [email or web address] Information not available 07/04/2023 Are You Blind Or Do You Have Difficulty Seeing? No [email or web address] Information not available 07/04/2023 What Is Your Level Of Caffeine Consumption? Occasional [email or web address] Information not available 07/04/2023 In The 14 Days Before Symptom Onset, Have You Had Close Contact With A Laboratory-confir med COVID-19 While That Case Was Ill? No [email or web address] Information not available 07/04/2023 In The 14 Days Before Symptom Onset, Have You Had Close Contact With A Person Who Is Under Investigation For COVID-19 While That Person Was Ill? No [email or web address] Information not available 07/04/2023 Have You Been To An Area Known To Be High Risk For COVID-19? No [email or web address] Information not available 07/04/2023 Are You Currently Employed? Yes [email or web address] Information not available 07/04/2023 Are You Deaf Or Do You Have Serious Difficulty Hearing? No [email or web address] Information not available 07/04/2023 What Type Of Diet Are You Following? REGULAR [email or web address] Information not available 07/04/2023 What Is The Highest Grade Or Level Of School You Have Completed Or The Highest Degree You Have Received? 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 Yes Information not available 07/04/2023 Have You Ever Been Counseled For Unhealthy Alcohol Use? No [email or web address] Information not available 07/04/2023 Do You Use Protection During Sex? No [email or web address] Information not available 07/04/2023 Do You Use Your Seat Belt Or Car Seat Routinely? Yes [email or web address] Information not available 07/04/2023 Do You Have Smoke And Carbon Monoxide Detectors In Your Home? Yes Information not available 07/04/2023 How Much Tobacco Do You Smoke? No [email or web address] Information not available 07/04/2023 Do You Feel Stressed (tense, Restless, Nervous, Or Anxious, Or Unable To Sleep At Night)? [id number] [email or web address] Information not available 07/04/2023 Do You Use Any Illicit Or Recreational Drugs? No [email or web address] Information not available 07/04/2023 Do You Use Sunscreen Routinely? Yes [email or web address] Information not available 07/04/2023 Has Tobacco Cessation Counseling Been Provided? No [email or web address] Information not available 07/04/2023 Have You Used IV Drugs? No [email or web address] Information not available 07/04/2023 Do You Or Have You Ever Used Any Other Forms Of Tobacco Or Nicotine? No [email or web address] Information not available 07/04/2023 Sex: Unknown Functional Status Question Answer Note LastModified by Organizat ion Details LastModified Time Do you have difficulty walking or climbing stairs? No Information not available 07/04/2023 Are you able to walk? YESWOREST [email or web address] Information not available 07/04/2023 Are you able to care for yourself? Yes [email or web address] Information not available 07/04/2023 Do you have difficulty dressing or bathing? No Information not available 07/04/2023 What is your exercise level? Moderate [email or web address] Information not available 07/04/2023 Mental Status None recorded. Family History Relationship Description Onset Age of this Age Resolved Age Notes LastModified by Organization Details LastModified Time Maternal Aunt Malignant tumor of breast [email or web address] Not available 01/17 16:20:07 Maternal Aunt Malignant tumor of colon [email or web address] Not available 01/17 16:20:07 Mother Malignant tumor of cervix [email or web address] Not available 01/17 16:20:07 Mother Hypertensive disorder [email or web address] Not available 01/17 16:20:08 Maternal Grandmother Diabetes mellitus [email or web address] Not available 01/17 16:20:08 Maternal Grandmother Hypercholest erolemia [email or web address] Not available 01/17 16:20:08 Maternal Grandmother Hypertensive disorder Not available 01/17 16:20:08 Medical History Condition Response Allergies (Food, seasonal, environmental ) N Other N Breast Cancer N Drug/Latex Allergies/Reactions N Blood Transfusion N Dermatologic Disorders N Lung Disease N Defects or Inherited Disease N Breast Problem N Gestational Diabetes N Hematologic disorders N Anesthesia Complications N History of STI N Deep Vein Thrombosis N Polycystic ovary syndrome N Anxiety Disorder N Autoimmune disease N Arthritis N Infertility N Polyps N Acid Reflux (GERD) N History of abnormal pap N Cancer N Stroke N Varicosities N Neurologic/Epilepsy N Endometriosis N High Cholesterol N Headaches N Fibromyalgia N Kidney Disease N Heart Problems N Kidney or Bladder Problems N Thyroid Problems N GI Problems N Eating Disorder N Anemia N Art (IVF or FET) N Psychiatric Illness N Ovarian Cancer N Diabetes N Pulmonary (TB, Asthma) N Hepatitis/Liver Disease N Eczema N Urinary Tract Infection N Abuse/Domestic Violence N Asthma N Trauma/Violence N Depression/ depression N Heart Disease N Pre-Eclampsia N Hypertension N Osteoporosis N Thrombophilias N Gynecological History Statement/Question Response Date of LMP 09/26/2022 On BCP's at Conception? N N STIs/STDs N Was last menstrual period normal Y HPV Vaccine N Current Control Method Age at First Child 25 Sexually Active? Y Date of Last Pap Smear 11/29/2022 Sexual Problems? N LMP Approximate N Obstetrics History GPAL:G 3 P 1 1 1 2 Type Value Full Term 1 Spontaneous 1 Premature 1 Living 2 Total 3 Past Encounters Encounter ID Performer Location Encounter Start Date Encounter Closed Date Diagnosis/Indication Diagnosis SNOMED-CT Code Diagnosis ICD10 Code [id number] Nanci Yu [place] [address] [address] 07/11/2020 09:34:04 07/11/2020 11:21:54 Gynecologic examination 66802897 Z01.419 test positive 422595891 Z32.01 [id number] Jerry Jasso [place] [address],[place] [address] 07/11/2020 09:35:19 07/12/2020 08:53:46 [id number] Hunter Pollock MD [place] [address],[place] [address] 08/10/2020 16:31:27 08/14/2020 10:56:53 Routine care 322581093 Z34.01 [id number] Fany Polk [place] [address],[facility] [address] 08/10/2020 16:32:24 08/10/2020 17:37:29 screening 923550543 Z36.82 [id number] Lorie Duran [facility] [address],[place] [address] 09/08/2020 10:57:00 09/08/2020 11:27:33 Routine care 043860441 Z34.92 Axillary lymphadenopathy 169717546 R59.0 [id number] [facility] [address],[place] [address] 09/08/2020 10:57:00 09/08/2020 11:27:33 [id number] Lorie Duran [facility] [address],[place] [address] 10/06/2020 11:57:59 10/06/2020 14:05:35 Routine care 566582910 Z34.92 [id number] [facility] [address],[place] [address] 10/06/2020 11:57:29 10/06/2020 12:50:36 screening for malformation 717998868 Z36.3 [id number] [address],[place] [address] 11/02/2020 11:19:35 11/02/2020 14:33:49 Routine care 918732291 Z34.92 [id number] [facility] [address],[place] [address] 11/02/2020 11:19:05 11/02/2020 12:16:13 Low lying placenta 071730834 O44.40 Z3A.24 [id number] Lorie Duran [facility] [address],[place] [address] 12/01/2020 13:24:59 12/01/2020 14:46:07 Routine care 740162278 Z34.92 [id number] [facility] [address],[place] [address] 12/01/2020 13:24:29 12/01/2020 14:33:18 Uterine size for dates discrepancy 609420704 O26.843 Z3A.28 [id number] Nanci Yu [place] [address],[place] [address] 12/14/2020 10:24:28 12/14/2020 11:48:35 Routine care 280381779 Z34.93 [id number] Carol Engel MD [place] [address],[place] [address] 12/29/2020 12:28:00 12/29/2020 12:45:55 Uterine size for dates discrepancy 507920655 O26.849 Routine an tenatal care 037628270 Z34.03 [id number] [facility] [address],[place] [address] 01/11/2021 12:20:47 01/11/2021 12:57:49 Small for gestational age fetus 815540792 O36.5930 Z3A.34 [id number] [facility] [address],[place] [address] 01/12/2021 10:31:00 01/12/2021 13:23:44 Routine care 091483376 Z34.92 [id number] [facility] [address],[place] [address] 01/19/2021 12:18:56 01/19/2021 12:59:14 Routine care 773600160 Z34.92 [id number] [facility] [address],[place] [address] 01/26/2021 10:11:28 01/26/2021 10:50:19 Routine care 078242700 Z34.92 [id number] Lorie Duran CNM [place] [address],[place] [address] 02/02/2021 10:05:46 02/02/2021 10:37:36 Routine care 376111529 Z34.92 [id number] [facility] [address],[place] [address] 02/09/2021 10:09:13 02/09/2021 10:39:29 Routine care 157648314 Z34.92 [id number] Lo Bose [place] [address],[place] [address] 02/08/2021 12:12:51 02/08/2021 13:28:36 Uterine size for dates discrepancy 109247495 O26.843 Z3A.38 [id number] Lorie Duran [facility] [address],[place] [address] 03/21/2021 10:39:44 03/21/2021 12:36:30 care 040779552 Z39.2 [id number] Rosa Henry [place] [address],[place] [address] 11/07/2022 16:59:14 11/07/2022 17:23:42 Uncertain viability of 822777175 O36.80X0 Z3A.01 [id number] Fany [facility] [address],[place] [address] 11/29/2022 15:55:15 11/29/2022 16:11:33 [id number] Lorie Duran [facility] [address],[place] [address] 11/29/2022 15:55:43 12/02/2022 16:26:09 Amenorrhea 92659000 N91.2 Gynecologi c examination 30424254 Z11.3 [id number] Rosa Henry [place] [address],[place] [address] 12/20/2022 11:27:42 12/20/2022 13:42:21 screening 974770722 Z36.82 [id number] Lorie Duran [facility] [address],[place] [address] 12/20/2022 11:28:19 12/20/2022 12:49:13 Routine care 657378086 Z34.92 [id number] [facility] [address],[place] [address] 01/17/2023 16:07:21 01/20/2023 10:56:55 Routine care 284485826 Z34.81 Z3A.16 [id number] [facility] [address],[place] [address] 01/22/2023 08:56:53 01/22/2023 09:44:13 Threatened miscarriage 91510065 O20.0 O26.852 Z3A.16 [id number] [facility] [address] [place] [address] 02/14/2023 15:12:23 02/14/2023 16:27:48 screening for malformation 184972023 Z36.3 [id number] [facility] [address] [place] [address] 02/14/2023 15:12:48 02/14/2023 17:24:47 Routine care 913720198 Z34.92 [id number] [facility] [address] [place] [address] 03/14/2023 14:52:05 03/14/2023 16:24:56 Routine care 454285002 Z34.92 [id number] [facility] [address] [place] [address] 04/11/2023 15:46:14 04/11/2023 16:30:26 Uterine size for dates discrepancy 448440284 O26.843 Z3A.28 [id number] Lorie Duran CNM [place] [address] [place] [address] 04/11/2023 15:46:36 04/12/2023 19:23:11 Routine care 818333215 Z34.92 [id number] Lorie Duran CNM [place] [address] [place] [address] 04/25/2023 14:59:33 04/25/2023 16:54:25 Routine care 337723815 Z34.92 [id number] Lorie Duran [facility] [address],[place] [address] 05/09/2023 11:52:18 05/09/2023 12:23:02 Routine care 734385424 Z34.92 [id number] Fany Polk [place] [address],[place] [address] 05/09/2023 11:52:45 05/09/2023 13:47:05 Uterine size for dates discrepancy 214680137 O26.843 Z3A.32 [id number] Lorie Duran [facility] [address],[place] [address] 05/21/2023 15:48:00 05/21/2023 16:39:12 Routine care 921579815 Z34.92 [id number] Susan Davis [place] [address],[place] [address] 07/04/2023 16:41:42 07/04/2023 17:01:06 care 572989413 Z39.2 Health Concerns Section Related Observation LastModified by Organization Detai ls LastModified Time None Recorded Concern Status LastModified by Organization Details LastModified Time None Recorded Advance Directives Directive N: Payers Encounter Date Sequence Insurance Name Policy Number Policy Ramon Covered Member ID Ramon Member ID Guarantor Name 04/25/2023 1 [place] [id number] Santiago Campoverde [id number] Traci Campoverde 05/09/2023 1 [place] [id number] Santiago Campoverde [id number] Traci Campoverde 05/09/2023 1 [place] [id number] Santiago Campoverde [id number] Traci Campoverde 05/21/2023 1 [place] [id number] Santiago Houseer [id number] Traci Peñayder 07/04/2023 1 [place] [id number] Santiago Campoverde [id number] Traci Campoverde Notes Date Note Type Note Provider Name and Address Organization Details Recorded Time 07/04/2023 text/html VisitReported bypatient.Quality:N ; 35 weeks, nicu x 13 days Context:complicatio ns of : PTL; complications of labor: none; complications: none; feeding choice: bottle; good support from partner/family; resumed menstrual bleeding yes Associated Symptoms:no abnormal bleeding; no vaginal discharge; no pelvic pain; laceration well healed; no constipation; no fecal incontinence; no dysuria; no urinary incontinence; no fever; normal moodNotes:both girls doing well, declines [facility] Susan Davis [facility] 07/04/2023 17:06:36 OBGyn Episode Ob Episode Information Episode Created Date Number of Fetuses Patient Bloodtype Patient rh Status Prepregnancy Weight lbs Domestic Partner Domestic Partner Phone Father Name Press Setup Operator Status 08/10/19 21 1 O Positive 117 CLOSED Fetus Data First Name Last Name Admitted to NICU Weight (g) Sex Living Outcome Pediatric Complications Fetus ID Race Codes Race Delivery Type 2693.20 25 F true Full Term term [facility]. 7546 Vaginal Delivery Problems Problem Notes Problem Name Start Date End Date Resolution Snomed Code Not e Uterine size for dates discrepancy 398719623 S<<D, another growth at 34 weeks Jacki Calculation JACKI Calculation Method Initial Jacki Date Initial Exam Date Initial Exam Provider Initial Ultrasound Date Last Menstrual Period Date Ultra Sound Weeks Gestation Conception by IVF Embryo Age at Transfer Date of Transfer 02/19/20 21 08/10/19 21 07/11/2020 04/13/2020 8 Eighteen To Twenty Week Jacki Update Ultra Sound Date Fundal Height At Umbil Quickening Date Ultra Sound Latest Weeks Gestation Final Jacki Confirmed By Final Jacki Confirmed Date Final Jacki Date Ultra Sound Latest Days Gestation 0 [email or web address] 08/10/2020 02/19/20 21 0 Pre-acosta Flowsheet Flowsheet Date 07/11/2020 [place]ana Score Blood Edema Fundus Height Fundus Units Glucose Ketones Leukocytes Nitrite Labor Signs Protein Cervic Dilation Cervic Effacement Cervic Station Type Weight in lbs Pre/Post Dialysis Refused BP Diastolic BP Location Tested BP Systolic BP Type Fetus Heart Rate Present Fetus Movement Comments Flowsheet Date 08/10/2020 Orellana Score Blood Edema Fundus Height Fundus Units Glucose Ketones Leukocytes Nitrite Labor Signs Protein Cervic Dilation Cervic Effacement Cervic Station 13 Type Weight in lbs Pre/Post Dialysis Refused Weight 118.783370867846 BP Diastolic BP Location Tested BP Systolic BP Type 74 R arm 108 sitting Fetus Heart Rate Present A 145 Fetus Movement Comments this patient is a 25-year-ol d 1 at 12 weeks gestation who presents for initial care. She has an unremarkable medical and obstetric history. We will begin routine care. She is having NIPT testing today and labs. She had a normal 12 week ultrasound. Flowsheet Date 09/08/2020 [place]rellana Score Blood Edema Fundus Height Fundus Units Glucose Ketones Leukocytes Nitrite Labor Signs Protein Cervic Dilation Cervic Effacement Cervic Station neg trace trace Type Weight in lbs Pre/Post Dialysis Refused Weight 119.681925507116 BP Diastolic BP Location Tested BP Systolic BP Type 67 98 Fetus Heart Rate Present Fetus Movement A No Comments patient is having some swell ing in armpit area, had us at pcp showed inflammation, no mass, tungsten tender will try keflex, if still persists can send to specialist for follow up, doing well gender ID (female), precautions reviewed, anatomy scheduled and pnlabs drawn Flowsheet Date 09/08/2020 [place]ana Score Blood Edema Fundus Height Fundus Units Glucose Ketones Leukocytes Nitrite Labor Signs Protein Cervic Dilation Cervic Effacement Cervic Station Type Weight in lbs Pre/Post Dialysis Refused BP Diastolic BP Location Tested BP Systolic BP Type Fetus Heart Rate Present Fetus Movement Comments Flowsheet Date 10/06/2020 [place]ana Score Blood Edema Fundus Height Fundus Units Glucose Ketones Leukocytes Nitrite Labor Signs Protein Cervic Dilation Cervic Effacement Cervic Station Type Weight in lbs Pre/Post Dialysis Refused BP Diastolic BP Location Tested BP Systolic BP Type Fetus Heart Rate Present Fetus Movement Comments Flowsheet Date 10/06/2020 Orellana Score Blood Edema Fundus Height Fundus Units Glucose Ketones Leukocytes Nitrite Labor Signs Protein Cervic Dilation Cervic Effacement Cervic Station neg trace trace Type Weight in lbs Pre/Post Dialysis Refused Weight 121.733122040698 BP Diastolic BP Location Tested BP Systolic BP Type 53 91 Fetus Heart Rate Present Fetus Movement A Yes Comments PATIENT IS HAVING SOME SWELL ING UNDER ARM PIT AND SWELLING IN FEET, anatomy complete (female), LLP rpt in 4 weeks, send to breast specialist, keflex no resolution Flowsheet Date 11/02/2020 Orellana Score Blood Edema Fundus Height Fundus Units Glucose Ketones Leukocytes Nitrite Labor Signs Protein Cervic Dilation Cervic Effacement Cervic Station Type Weight in lbs Pre/Post Dialysis Refused BP Diastolic BP Location Tested BP Systolic BP Type Fetus Heart Rate Present Fetus Movement Comments Flowsheet Date 11/02/2020 Orellana Score Blood Edema Fundus Height Fundus Units Glucose Ketones Leukocytes Nitrite Labor Signs Protein Cervic Dilation Cervic Effacement Cervic Station neg trace trace Type Weight in lbs Pre/Post Dialysis Refused Weight 125.023319358546 BP Diastolic BP Location Tested BP Systolic BP Type 66 L arm 95 sitting Fetus Heart Rate Present Fetus Movement A Yes Comments Placenta 2.1 , anatomy compl ete, doing well, reviewed precautions plan got in 4 weeks Flowsheet Date 12/01/2020 Orellana Score Blood Edema Fundus Height Fundus Units Glucose Ketones Leukocytes Nitrite Labor Signs Protein Cervic Dilation Cervic Effacement Cervic Station Type Weight in lbs Pre/Post Dialysis Refused BP Diastolic BP Location Tested BP Systolic BP Type Fetus Heart Rate Present Fetus Movement Comments Flowsheet Date 12/01/2020 Orellana Score Blood Edema Fundus Height Fundus Units Glucose Ketones Leukocytes Nitrite Labor Signs Protein Cervic Dilation Cervic Effacement Cervic Station neg trace trace Type Weight in lbs Pre/Post Dialysis Refused Weight 128.383468294927 BP Diastolic BP Location Tested BP Systolic BP Type 71 105 Fetus Heart Rate Present Fetus Movement A Yes Comments PATIENT IS HAVING SOME SWELL ING EFW 33%, tdap rec, precautions reviewed gct done today plan 2 week f/u Flowsheet Date 12/14/2020 Orellana Score Blood Edema Fundus Height Fundus Units Glucose Ketones Leukocytes Nitrite Labor Signs Protein Cervic Dilation Cervic Effacement Cervic Station none 27 trace Type Weight in lbs Pre/Post Dialysis Refused Weight 131.458028522693 BP Diastolic BP Location Tested BP Systolic BP Type 68 114 Fetus Heart Rate Present A 150 Fetus Movement A Yes Comments Visit per Z. Due SNM. Doing well. Size less than dates but u/s 2 weeks ago was normal growth. Will evaluate at next visit. Flowsheet Date 12/29/2020 Orellana Score Blood Edema Fundus Height Fundus Units Glucose Ketones Leukocytes Nitrite Labor Signs Protein Cervic Dilation Cervic Effacement Cervic Station trace 28 Type Weight in lbs Pre/Post Dialysis Refused Weight 128.703568385826 BP Diastolic BP Location Tested BP Systolic BP Type 73 105 Fetus Heart Rate Present A 145 Fetus Movement A Yes Comments Doing great. Still sig S<D, will add US next visit. Has not done Tdap, hesitant, discussed and encouraged. Flowsheet Date 01/11/2021 Orellana Score Blood Edema Fundus Height Fundus Units Glucose Ketones Leukocytes Nitrite Labor Signs Protein Cervic Dilation Cervic Effacement Cervic Station Type Weight in lbs Pre/Post Dialysis Refused BP Diastolic BP Location Tested BP Systolic BP Type Fetus Heart Rate Present Fetus Movement Comments Flowsheet Date 01/12/2021 Orellana Score Blood Edema Fundus Height Fundus Units Glucose Ketones Leukocytes Nitrite Labor Signs Protein Cervic Dilation Cervic Effacement Cervic Station neg trace trace Type Weight in lbs Pre/Post Dialysis Refused Weight 133.668488876435 BP Diastolic BP Location Tested BP Systolic BP Type 68 105 Fetus Heart Rate Present Fetus Movement A Yes Comments patient is having some hip p ain and swelling. efw 12 %, doing well, preadmit scheduled, gbs next visit, reviewed us Flowsheet Date 01/19/2021 Orellana Score Blood Edema Fundus Height Fundus Units Glucose Ketones Leukocytes Nitrite Labor Signs Protein Cervic Dilation Cervic Effacement Cervic Station neg trace 33 trace Type Weight in lbs Pre/Post Dialysis Refused Weight 131.514179199085 BP Diastolic BP Location Tested BP Systolic BP Type 80 120 Fetus Heart Rate Present A 145 Present Fetus Movement A Yes Comments patient states that had some abdominal pain, issues with constipation, discharge and swelling., discussed precautions schedule preadmit, gbs done, f/u one week Flowsheet Date 01/26/2021 Orellana Score Blood Edema Fundus Height Fundus Units Glucose Ketones Leukocytes Nitrite Labor Signs Protein Cervic Dilation Cervic Effacement Cervic Station neg trace 32 trace 1cm 70% -2 Type Weight in lbs Pre/Post Dialysis Refused Weight 132.386819894027 BP Diastolic BP Location Tested BP Systolic BP Type 78 111 Fetus Heart Rate Present A 156 Present Fetus Movement A Yes Comments patient states that having s ome swelling. gbs neg doing well, f/u next week Flowsheet Date 02/02/2021 Orellana Score Blood Edema Fundus Height Fundus Units Glucose Ketones Leukocytes Nitrite Labor Signs Protein Cervic Dilation Cervic Effacement Cervic Station neg trace 35 trace 1cm 80% -2 Type Weight in lbs Pre/Post Dialysis Refused Weight 132.514685919115 BP Diastolic BP Location Tested BP Systolic BP Type 78 117 Fetus Heart Rate Present A 136 Fetus Movement A Yes Comments patient states that having s ome contractions, back pain, had some bleeding after being check and swelling. doing well reviewed precautions has preadmit tomorrow f/u one week Flowsheet Date 02/08/2021 Orellana Score Blood Edema Fundus Height Fundus Units Glucose Ketones Leukocytes Nitrite Labor Signs Protein Cervic Dilation Cervic Effacement Cervic Station Type Weight in lbs Pre/Post Dialysis Refused BP Diastolic BP Location Tested BP Systolic BP Type Fetus Heart Rate Present Fetus Movement Comments Flowsheet Date 02/09/2021 Orellana Score Blood Edema Fundus Height Fundus Units Glucose Ketones Leukocytes Nitrite Labor Signs Protein Cervic Dilation Cervic Effacement Cervic Station neg trace trace Type Weight in lbs Pre/Post Dialysis Refused Weight 133.247884831881 BP Diastolic BP Location Tested BP Systolic BP Type 77 116 Fetus Heart Rate Present Fetus Movement A Yes Comments patient states that having c ontractions and swelling. declines exam, plan MIL at 39-40 weeks per us reviewed by Dr. Pollock, precautions reviewed Menstrual History Last Menstrual Date Menses Monthly On Bcp Conception Prior Menses Frequency Hcg Plus Date Menarche Onset Age 1004/13/2020 Genetic Screening And Infection History Question Response Note Mental Retardation/Autism false Patient's Age Will Be 35 Years Or Older At Estim ated Date of Delivery false Thalassemia (Egyptian, Kenyan, Mediterranean, Or Background): MCV < 80 false Neural Tube Defect (Meningomyelocele, Spina Bifi da, Or Anencephaly) false Congenital Heart Defect false Down Syndrome false Sincere-Sachs (eg, Faith, Cajun, Congolese-[place]) f alse Reyna Disease false Sickle Cell Disease Or Trait () false Hemophilia Or Other Blood Disorders false Muscular Dystrophy false Cystic Fibrosis false [place]'s Chorea false Intellectual Disability/Autism false If Yes, Was Person Tested For Fragile X? false Other Inherited Genetic Or Chromosomal Disorder false Maternal Metabolic Disorder (eg, Type 1 Diabetes , PKU) false Patient Or Baby's Father Had A Child With Defects Not Listed Above false Recurrent Loss, Or A Stillbirth false Medications (including Suppl ements, Vitamins, Herbs, OTC Drugs), Illicit/Recreational Drugs, Alcohol false If Yes, Agent(s) And Strength/Dosage false Any Other Genetic History false Live With Someone With TB Or Exposed To TB false Patient Or Partner Has History Of Genital Herpes false Rash Or Viral Illness Since Last Menstrual Perio d false History Of STD, Gonorrhea, Chlamydia, HPV, Syphi lis false Other Infection History false History of HIV false History of Hepatitis false Prior GBS-infected child false Hemoglobinopathy Or Carrier false Other Structural Defect false Recent Travel History Outside of Country false Delivery Information Delivery Date Delivery Type Labor Anesthesia Weeks Gestation Incision Type Labor Labor Length Hrs Delivered By Post Complications Tubal Sterilization Discharge Date Comments 1 Sponta neous Regional-Ep idural 39 false Lorie Duran CNM [facility] Discharge Information Feeding Method Contraceptive Method Maternal HG B and HCT Levels Breast Ob Episode Information Episode Created Date Number of Fetuses Patient Bloodtype Patient rh Status Prepregnancy Weight lbs Domestic Partner Domestic Partner Phone Father Name Press Setup Operator Status 12/21/19 23 1 O Positive 121 bola CLOSED Fetus Data First Name Last Name Admitted to NICU Weight (g) Sex Living Outcome Pediatric Complications Fetus ID Race Codes Race Delivery Type Emry true 2211.26 1 F true Prematur e Vaginal Delivery Jacki Calculation JACKI Calculation Method Initial Jacki Date Initial Exam Date Initial Exam Provider Initial Ultrasound Date Last Menstrual Period Date Ultra Sound Weeks Gestation Conception by IVF Embryo Age at Transfer Date of Transfer 07/03/20 23 11/30/19 23 11/07/2022 09/26/2022 6 Eighteen To Twenty Week Jacki Update Ultra Sound Date Fundal Height At Umbil Quickening Date Ultra Sound Latest Weeks Gestation Final Jacki Confirmed By Final Jacki Confirmed Date Final Jacki Date Ultra Sound Latest Days Gestation 0 07/03/20 23 0 Pre-acosta Flowsheet Flowsheet Date 12/20/2022 Orellana Score Blood Edema Fundus Height Fundus Units Glucose Ketones Leukocytes Nitrite Labor Signs Protein Cervic Dilation Cervic Effacement Cervic Station Type Weight in lbs Pre/Post Dialysis Refused BP Diastolic BP Location Tested BP Systolic BP Type Fetus Heart Rate Present Fetus Movement Comments Flowsheet Date 12/20/2022 Orellana Score Blood Edema Fundus Height Fundus Units Glucose Ketones Leukocytes Nitrite Labor Signs Protein Cervic Dilation Cervic Effacement Cervic Station none none trace Type Weight in lbs Pre/Post Dialysis Refused Weight 118.046674275923 BP Diastolic BP Location Tested BP Systolic BP Type 66 99 Fetus Heart Rate Present Fetus Movement A Yes Comments patient states that having i ssues with constipation. miralax ok, subchorionic hem resolved, doing well no complaintsno hx of complications education and precautions reviewed f/u 4 weeks Flowsheet Date 01/17/2023 Orellana Score Blood Edema Fundus Height Fundus Units Glucose Ketones Leukocytes Nitrite Labor Signs Protein Cervic Dilation Cervic Effacement Cervic Station neg none none trace Type Weight in lbs Pre/Post Dialysis Refused Weight 123.438985617511 BP Diastolic BP Location Tested BP Systolic BP Type 68 105 Fetus Heart Rate Present A 150 Present Fetus Movement A Yes Comments doing well, no complaints, a natomy scan scheduled, precautions and education done Flowsheet Date 01/22/2023 Orellana Score Blood Edema Fundus Height Fundus Units Glucose Ketones Leukocytes Nitrite Labor Signs Protein Cervic Dilation Cervic Effacement Cervic Station Type Weight in lbs Pre/Post Dialysis Refused BP Diastolic BP Location Tested BP Systolic BP Type Fetus Heart Rate Present Fetus Movement Comments Flowsheet Date 02/14/2023 Orellana Score Blood Edema Fundus Height Fundus Units Glucose Ketones Leukocytes Nitrite Labor Signs Protein Cervic Dilation Cervic Effacement Cervic Station Type Weight in lbs Pre/Post Dialysis Refused BP Diastolic BP Location Tested BP Systolic BP Type Fetus Heart Rate Present Fetus Movement Comments Flowsheet Date 02/14/2023 Orellana Score Blood Edema Fundus Height Fundus Units Glucose Ketones Leukocytes Nitrite Labor Signs Protein Cervic Dilation Cervic Effacement Cervic Station trace none none trace Type Weight in lbs Pre/Post Dialysis Refused Weight 124.244823886268 BP Diastolic BP Location Tested BP Systolic BP Type 66 101 Fetus Heart Rate Present Fetus Movement A Yes Comments anatomy complete, efw 14%, d oing well, no complaints, precautions reviewed, rpt growth at 28 weeks with gct Flowsheet Date 03/14/2023 Orellana Score Blood Edema Fundus Height Fundus Units Glucose Ketones Leukocytes Nitrite Labor Signs Protein Cervic Dilation Cervic Effacement Cervic Station neg trace 21 none trace Type Weight in lbs Pre/Post Dialysis Refused Weight 129.759905573298 BP Diastolic BP Location Tested BP Systolic BP Type 57 108 Fetus Heart Rate Present A 155 Fetus Movement A Yes Comments patient states that having s ome swelling. otherwise doing good +FM, plan gct next visit with growth s<d , precautions and education done Flowsheet Date 04/11/2023 Orellana Score Blood Edema Fundus Height Fundus Units Glucose Ketones Leukocytes Nitrite Labor Signs Protein Cervic Dilation Cervic Effacement Cervic Station Type Weight in lbs Pre/Post Dialysis Refused BP Diastolic BP Location Tested BP Systolic BP Type Fetus Heart Rate Present Fetus Movement Comments Flowsheet Date 04/11/2023 Orellana Score Blood Edema Fundus Height Fundus Units Glucose Ketones Leukocytes Nitrite Labor Signs Protein Cervic Dilation Cervic Effacement Cervic Station neg trace none trace Type Weight in lbs Pre/Post Dialysis Refused Weight 130.342217653829 BP Diastolic BP Location Tested BP Systolic BP Type 70 107 Fetus Heart Rate Present Fetus Movement A Yes Comments patient states that having s ome swelling. discussed precautions, education done, ok for tdap and flu, efw 23% Flowsheet Date 04/25/2023 Orellana Score Blood Edema Fundus Height Fundus Units Glucose Ketones Leukocytes Nitrite Labor Signs Protein Cervic Dilation Cervic Effacement Cervic Station neg trace 25 none trace Type Weight in lbs Pre/Post Dialysis Refused Weight 131.879462745343 BP Diastolic BP Location Tested BP Systolic BP Type 67 98 Fetus Heart Rate Present A 155 Present Fetus Movement A Yes Comments patient is having some swell ing. doing well, has growth f/u next visit, precautions reviewed f/u 2 weeks will call for preadmit after that appt Flowsheet Date 05/09/2023 Orellana Score Blood Edema Fundus Height Fundus Units Glucose Ketones Leukocytes Nitrite Labor Signs Protein Cervic Dilation Cervic Effacement Cervic Station neg trace none trace Type Weight in lbs Pre/Post Dialysis Refused Weight 132.528997347802 BP Diastolic BP Location Tested BP Systolic BP Type 71 106 Fetus Heart Rate Present Fetus Movement A Yes Comments Patient c/o swelling of ankl es and BH ctx growth us today after appt, call for preadmit education and precautions Flowsheet Date 05/09/2023 Orellana Score Blood Edema Fundus Height Fundus Units Glucose Ketones Leukocytes Nitrite Labor Signs Protein Cervic Dilation Cervic Effacement Cervic Station Type Weight in lbs Pre/Post Dialysis Refused BP Diastolic BP Location Tested BP Systolic BP Type Fetus Heart Rate Present Fetus Movement Comments Flowsheet Date 05/21/2023 Orellana Score Blood Edema Fundus Height Fundus Units Glucose Ketones Leukocytes Nitrite Labor Signs Protein Cervic Dilation Cervic Effacement Cervic Station neg none 30 none trace Type Weight in lbs Pre/Post Dialysis Refused Weight 135.90497152222 BP Diastolic BP Location Tested BP Systolic BP Type 66 95 Fetus Heart Rate Present A 150 Fetus Movement A Yes Comments patient states that having s ome swelling and nausea. will get tdap, call for preadmit, f/u growth next visit doing well +FM Menstrual History Last Menstrual Date Menses Monthly On Bcp Conception Prior Menses Frequency Hcg Plus Date Menarche Onset Age 0309/26/2022 Genetic Screening And Infection History Question Response Note Mental Retardation/Autism false Patient's Age Will Be 35 Yea rs Or Older At Estimated Date of Delivery false Thalassemia (Egyptian, Kenyan, Mediterranean, Or Background): MCV < 80 false Neural Tube Defect (Meningom yelocele, Spina Bifida, Or Anencephaly) false Congenital Heart Defect false Down Syndrome false Sincere-Sachs (eg, Faith, Cajun, Congolese-[place]) f alse Reyna Disease false Sickle Cell Disease Or Trait () false Hemophilia Or Other Blood Disorders false Muscular Dystrophy false Cystic Fibrosis false [place]'s Chorea false Intellectual Disability/Autism false If Yes, Was Person Tested For Fragile X? false Other Inherited Genetic Or Chromosomal Disorder false Maternal Metabolic Disorder (eg, Type 1 Diabetes , PKU) false Patient Or Baby's Father Had A Child With Defects Not Listed Above false Recurrent Loss, Or A Stillbirth true pnv, miralax Medications (including Suppl ements, Vitamins, Herbs, OTC Drugs), Illicit/Recreational Drugs, Alcohol false If Yes, Agent(s) And Strength/Dosage false Any Other Genetic History false Live With Someone With TB Or Exposed To TB false Patient Or Partner Has History Of Genital Herpes false Rash Or Viral Illness Since Last Menstrual Perio d false History Of STD, Gonorrhea, Chlamydia, HPV, Syphi lis false Other Infection History false History of HIV false History of Hepatitis false Prior GBS-infected child false Hemoglobinopathy Or Carrier false Other Structural Defect false Recent Travel History Outside of Country false Delivery Information Delivery Date Delivery Type Labor Anesthesia Weeks Gestation Incision Type Labor Labor Length Hrs Delivered By Post Complications Tubal Sterilization Discharge Date Comments 3 Sponta neous Regional-Ep idural 35.1 true Lorie Duran [facility] PT[facility] Discharge Information Feeding Method Contraceptive Method Maternal HG B and HCT Levels Ob Episode Information Episode Created Date Number of Fetuses Patient Bloodtype Patient rh Status Prepregnancy Weight lbs Domestic Partner Domestic Partner Phone Father Name Press Setup Operator Status 07/06/20 22 1 CLOSED Fetus Data First Name Last Name Admitted to NICU Weight (g) Sex Living Outcome Pediatric Complications Fetus ID Race Codes Race Delivery Type , [place] [id number] Jacki Calculation JACKI Calculation Method Initial Jacki Date Initial Exam Date Initial Exam Provider Initial Ultrasound Date Last Menstrual Period Date Ultra Sound Weeks Gestation Conception by IVF Embryo Age at Transfer Date of Transfer 0 Eighteen To Twenty Week Jacki Update Ultra Sound Date Fundal Height At Umbil Quickening Date Ultra Sound Latest Weeks Gestation Final Jacki Confirmed By Final Jacki Confirmed Date Final Jacki Date Ultra Sound Latest Days Gestation 0 0 Menstrual History Last Menstrual Date Menses Monthly On Bcp Conception Prior Menses Frequency Hcg Plus Date Menarche Onset Age Delivery Information Delivery Date Delivery Type Labor Anesthesia Weeks Gestation Incision Type Labor Labor Length Hrs Delivered By Post Complications Tubal Sterilization Discharge Date Comments 2 Discharge Information Feeding Method Contraceptive Method Maternal HG B and HCT Levels
--- OUTSIDE RECORDS SUMMARY | 2024-07-11 06:08 | XMS_ITS | Clinical Summary ---
Author Organization [facility] [employer] Address [address] [place] [address] Care Team Providers Care Lease Administration Analyst Name Role Phone Unavailable Primary Care Provider Unavailabl e Source Comments [facility] [employer] [facility] [employer]non-owned Affiliates and Associated Physician Practices is amultiple site organization consisting of ambulatory clinics and hospital sitesin [place], [place], [place] and [place]. This disclosure is being madepursuant to the Care Everywhere program and may not contain all information available regarding this patient. Last updated 18.[facility] [employer] Allergies No known active allergies Medications Be aware that medications may not be up to date on this document. Always verify current medications with the patient. No known medications Social History Tobacco Use Types Packs/Day Years Used Date Smoking Tobacco: Never Smokeless Tobacco: Never Sex and Gender Information Value Date Recorded Sex Assigned at Not on file Gender Identity Not on file Sexual Orientation Not on file Last Filed Vital Signs Vital Sign Reading Time Taken Comments Blood Pressure 110/60 12/18/2017 9:31 AM CDT Pulse 74 12/18/2017 9:31 AM CDT Temperature 36.8 ??C (98.3 ??F) 12/18/2017 9:31 AM CD T Respiratory Rate 16 12/18/2017 9:31 AM CDT Oxygen Saturation 99% 12/18/2017 9:31 AM CDT Inhaled Oxygen Concentration - - Weight 52.2 kg (115 lb) 12/18/2017 9:31 AM CDT Height 160 cm (5' 3 ) 12/18/2017 9:31 AM CDT Body Mass Index 20.37 12/18/2017 9:31 AM CDT Plan of Treatment Health Maintenance Due Date Last Done Comments PAP SMEAR 1993 HIV SCREENING 2008 HEPATITIS C SCREENING 06/07/2011 DTAP/TDAP/TD VACCINES (1 - Tdap) 2012 HEPATITIS B VACCINE (1 of 3 - 19+ 3-dose series) 2012 DEPRESSION SCREENING 07/14/2023 COVID-19 VACCINE (1 - 2023-2 5 season) 2024 INFLUENZA VACCINE (#1) 2024 ZOSTER VACCINE (1 of 2) 2043 HIB VACCINE Aged Out No longer eligi ble based on patient's age to complete this topic HPV VACCINE Aged Out No longer eligi ble based on patient's age to complete this topic MENINGOCOCCAL VACCINE Aged Out No maikel katie eligible based on patient's age to complete this topic PNEUMOCOCCAL VACCINE Aged Out No long er eligible based on patient's age to complete this topic SAVANNATRACI Personal/Family 1995 [address] [place] [address] [place] Traci L Personal/Family Self [address] [place] [id number] [place] Traci L Personal/Family Self [address] [place] [id number]
--- OUTSIDE RECORDS SUMMARY | 2024-07-11 06:08 | XMS_ITS | Encounter Summary ---
Author Organization [facility] Address [address] [place] [address] Phone Care Team Providers Care Cabinetmaker Helper Name Role Phone Provider, None Primary Care Provider Unavailabl e Encounter Details Date Type Department Care Team ([facility] st Contact Info) Description 07/22/2021 [facility] [address] [place] [address] Toni Stark APRN, TRACK REPAIR WORKER [address] [place] [address] Social History Tobacco Use Types Packs/Day Years Used Date Smoking Tobacco: Never Smokeless Tobacco: Never Alcohol Use Standard Drinks/Week Comments Yes 0 (1 standard drink = 0.6 oz pur e alcohol) Sexually Active Control Partners Comments Yes Male Comments Yes Sex and Gender Information Value Date Recorded Sex Assigned at Not on file Legal Sex Female 8:08 PM CDT Gender Identity Not on file Sexual Orientation Not on file COVID-19 Exposure Response Date Recorded In the last month, have you been in contact with someone who was confirmed or suspected to have Coronavirus / COVID-19? Yes 07/18/2021 3:37 PM SUGAR MIXER documented as of this encounter Progress Notes * Toni Stark APRN, TRACK REPAIR WORKER - 07/22/2021 12:02 PM CST Date: 07/22/2021 11:43:18 Clinician: Toni Stark Clinician Patient: Traci Gonzalez Patient : 1995 Patient Address: [address] [place] [address] Patient Visit Protocol: URI Patient Summary: Traci is a 26 year old ( : 1995 ) female who initiated a visit for cold, sinus infection, or influenza. Traci states the symptoms started gradually 3-4 days ago. The symptoms consist of facial pain or pressure, anosmia, enlarged lymph nodes, ear pain, malaise, ageusia, a sore throat, a headache, nasal congestion, and a cough. Symptom details Nasal secretions: The color of the mucus is green. Cough: Traci coughs every 5-10 minutes and the cough is more bothersome at night. Phlegm does not come into the throat when coughing. Traci believes the cough is caused by post-nasal drip. Sore throat: Traci reports having mild throat pain (1-3 on a 10 point pain scale), does not have exudate on the tonsils, and can swallow liquids. The lymph nodes in the neck are enlarged. A rash has not appeared on the skin since the sore throat started. Facial pain or pressure: The facial pain or pressure feels worse when bending over or leaning forward. Headache: The headache is mild (1-3 on a 10 point pain scale). Traci has an oximeter at home. The oxygen saturation reading is between 95-100%. Traci denies having wheezing, teeth pain, chills, diarrhea, myalgias, vomiting, fever, nausea, and rhinitis. Traci also denies taking antibiotic medication in the past month, double sickening (worsening symptoms after initial improvement), having a sinus infection within the past year, and having recent facial or sinus surgery in the past 60 days. Traci is not experiencing dyspnea. Precipitating events Within the past week, Traci has not been exposed to someone with strep throat. Traci has not recently been exposed to someone with influenza. Traci has not been in close contact with any high risk individuals. Pertinent COVID-19 (Coronavirus) information Traci is not concerned that the symptoms may be COVID-19. 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 Traci has been tested for COVID-19. Date(s) of the COVID-19 test as reported by the patient (free text): 07/18/2021 Result of COVID-19 test as reported by the patient (free text): Positive Type of test as reported by the patient (free text): Rapid Traci has not received a COVID-19 vaccine. Pertinent medical history A provider has not told Traci to avoid NSAIDs. Traci does not get yeast infections when an antibiotic is taken. Traci does not have diabetes. Traci denies having immunosuppressive conditions (e.g., chemotherapy, HIV, organ transplant, long-term use of steroids or other immunosuppressive medications, splenectomy). Traci denies having congestive heart failure and severe COPD. Traci does not have asthma. Traci needs a return to work/school note. Traci does not smoke or use smokeless tobacco. Traci denies and denies . Traci has menstruated in the past month. Weight: 115 lbs (52.16 kg) [facility] Specific Question(s): When asked the question Are you an existing [facility] patient? , Traci responded Yes, I am an existing patient . MEDICATIONS: No current medications, ALLERGIES: NKDA Clinician Response: Dear Traci, Your health is our priority. Based on the information you have provided, it is possible that you may have some type of viral infection. Please read the full treatment plan and see my recommendations below. Medication information Because you have a viral infection, antibiotics will not help you get better. Treating a viral infection with antibiotics could actually make you feel worse. Self care Steps you can take to be as comfortable as possible: Rest. Drink plenty of fluids. Take a warm shower to loosen congestion Use a cool-mist humidifier. Use throat lozenges. Suck on frozen items such as popsicles. Drink hot tea with lemon and honey. Gargle with warm salt water (1/4 teaspoon of salt per 8 ounce glass of water). Take a spoonful of honey to reduce your cough. If your oxygen level drops below 95%. For the latest updates on COVID-19 (Coronavirus), please visit the Centers for Disease Control and Prevention (CDC). Diagnosis: COVID-19 (Coronavirus) concern Diagnosis ICD: Z20.828 Toni Stark - R MIXER documented in this encounter Plan of Treatment Not on file documented as of this encounter Visit Diagnoses Not on filedocumented in this encounter Additional Health Concerns Infection Onset Date Last Indicated Resolved Time COVID - 19 07/18/2021 07/18/2021 08/07/2021 12:1 7 AM SUGAR MIXER COVID - 19 Confirmed 07/18/2021 07/18/2021 022 12:17 AM SUGAR MIXER documented as of this encounter Care Teams Cabinetmaker Helper Relationship Specialty Start Date End Date Provider, None [place] PCP - General 12/28/20 documented as of this encounter
--- OUTSIDE RECORDS SUMMARY | 2024-07-11 06:08 | XMS_ITS | Encounter Summary ---
Author Organization [facility] Address [address] [address] Care Team Providers Care Aerobics Instructor Name Role Phone Unavailable Primary Care Provider Unavailabl e Reason for Visit * Reason Comments Sore Throat Encounter Details Date Type Department Care Team ([facility] st Contact Info) Description 12/18/2017 9:40 AM CDT Office Visit [facility] AT [address] [address] Provider, [facility] Acute pharyngitis, unspecified etiology (Primary Dx) Social History Tobacco Use Types Packs/Day Years Used Date Smoking Tobacco: Never Smokeless Tobacco: Never Sex and Gender Information Value Date Recorded Sex Assigned at Not on file Gender Identity Not on file Sexual Orientation Not on file documented as of this encounter Last Filed Vital Signs Vital Sign Reading [...] Mass Index 20.37 12/18/2017 9:31 AM CDT documented in this encounter Patient Instructions * Patient Instructions* Genesis Gonzalez, ALEXANDRE-DIGITAL MARKETING INTERN - 12/18/2017 9:45 AM CDT Pharyngitis WHAT YOU NEED TO KNOW: Pharyngitis, or sore throat, is inflammation of the tissues and structures in your pharynx (throat). Pharyngitis is most often caused by bacteria. It may also be caused by a cold or flu virus. Other causes include smoking, allergies, or acid reflux. DISCHARGE INSTRUCTIONS: Call 911 for any of the following: ?? You have trouble breathing or swallowing because your throat is swollen or sore. Return to the emergency department if: ?? You are drooling because it hurts too much to swallow. ?? Your fever is higher than 102?F (39?C) or lasts longer than 3 days. ?? You are confused. ?? You taste blood in your throat. Contact your healthcare provider if: ?? Your throat pain gets worse. ?? You have a painful lump in your throat that does not go away after 5 days. ?? Your symptoms do not improve after 5 days. ?? You have questions or concerns about your condition or care. Medicines: Viral pharyngitis will go away on its own without treatment. Your sore throat should start to feel better in 3 to 5 days for both viral and bacterial infections. You may need any of the following: ?? Antibiotics treat a bacterial infection. ?? NSAIDs , such as ibuprofen, help decrease swelling, pain, and fever. NSAIDs can cause stomach bleeding or kidney problems in certain people. If you take blood thinner medicine, always ask your healthcare provider if NSAIDs are safe for you. Always read the medicine label and follow directions. ?? Acetaminophen decreases pain and fever. It is available without a doctor's order. Ask how much to take and how often to take it. Follow directions. Acetaminophen can cause liver damage if not taken correctly. ?? Take your medicine as directed. Contact your healthcare provider if you think your medicine is not helping or if you have side effects. Tell him or her if you are allergic to any medicine. Keep a list of the medicines, vitamins, and herbs you take. Include the amounts, and when and why you take them. Bring the list or the pill bottles to follow-up visits. Carry your medicine list with you in case of an emergency. Manage your symptoms: ?? Gargle salt water. Mix ?? teaspoon salt in an 8 ounce glass of warm water and gargle. This may help decrease swelling in your throat. ?? Drink liquids as directed. You may need to drink more liquids than usual. Liquids may help soothe your throat and prevent dehydration. Ask how much liquid to drink each day and which liquids are best for you. ?? Use a cool-steam humidifier to help moisten the air in your room and calm your cough. ?? Soothe your throat with cough drops, ice, soft foods, or popsicles. Prevent the spread of pharyngitis: Cover your mouth and nose when you cough or sneeze. Do not sharefood or drinks. Wash your hands often. Use soap and water. If soap and water are unavailable, use an alcohol based hand body finisher. Follow up with your healthcare provider as directed: Write down your questions so you remember to ask them during your visits. ?? 2017 [employer] Information is for End User's use only and may not be sold, redistributed or otherwise used for commercial purposes. All illustrations and images included in CareNotes?? are the copyrighted property of [employer]. or [employer]. The above information is an federal aid coordinator only. It is not intended as medical advice for individual conditions or treatments. Talk to your doctor, nurse or pharmacist before following any medical regimen to see if it is safe and effective for you. documented in this encounter Progress Notes * Genesis Gonzalez APRN-CNP - 12/18/2017 9:40 AM CDT History Traci Gonzalez is a 22 y.o. female who presents to the clinic with Chief Complaint Patient presents with ??? Sore Throat . Primary Care Physician is No primary care provider on file. Declined referral. She reports the following symptoms:mild sinus and nasal congestion and sore throat. Onset was 2 days ago. The Clinical course has been slightly worsening. Patient is drinking plenty of fluids. TakingTylenol No past medical history on file. No family history on file. No current outpatient prescriptions on file. No current facility-administered medications for this visit. No Known Allergies Social History Social History ??? Marital status: Single Spouse name: N/A ??? Number of children: N/A ??? Years of education: N/A Occupational History ??? Not on file. Social History Main Topics ??? Smoking status: Never Smoker ??? Smokeless tobacco: Never Used ??? Alcohol use Not on file ??? Drug use: Not on file ??? Sexual activity: Not on file Other Topics Concern ??? Not on file Social History Narrative ??? No narrative on file Review of Systems Pertinent items are noted in HPI Objective: BP 110/60 Pulse 74 Temp 98.3 ??F (36.8 ??C) (Oral) Resp 16 Ht 1.6 m (5' 3 ) Wt 52.2 kg (115 lb) SpO2 99% BMI 20.37 kg/m2 General appearance: alert, cooperative, no distress Ears: canals clear, tympanic membranes normal but scarred, hearing intact to voice Nose: mucosa erythematous and swollen Throat: lips, mucosa, and tongue normal; teeth and gums normal, moderate oropharyngeal erythema Nodes: no cervical adenopathy Lungs: breath sounds normal and symmetric; no rales or wheezes Heart: regular rhythm, normal S1 and S2, without murmurs, gallops or rubs Skin: warm, well perfused Assessment: Encounter Diagnosis Name Primary? Acute pharyngitis, unspecified etiology Yes Plan: Use ibuprofen/acetaminphen as directed to help control pain and fever ? Make sure you are drinking plenty of fluids to remain hydrated ? Cepacol (benzocaine), per package directions, to help with throat pain ? If symptoms worsen, you develop high fever, the inability to swallow liquids or saliva, difficulty breathing- seek re-evaluation immediately in the ER or call 911. Orders Placed This Encounter ??? STREP A SCREEN Recent Results (from the past 24 hour(s)) STREP A SCREEN Collection Time: 12/18/17 12:00 AM Result Value Ref Range Strep A Rapid Negative Negative Strep A INTERNAL CONTROL Present Lot Number [id number] Expiration Date 06/19/19 .ssm documented in this encounter Plan of Treatment Not on file documented as of this encounter Procedures Procedure Name Priority Date/Time Associated Diagnosis Comments STREP A SCREEN - POINT OF CARE (AMB) STL Routine 12/18/2017 Acute pharyngitis, unspecified etiology documented in this encounter Results * STREP A SCREEN (12/18/2017) Strep A Rapid POCT Negative Negative Strep A Internal Control Present Lot # [id number] Expiration Date 06/19/19 Throat ENTIRE THROAT (SURFACE REGION OF NECK) / Unknown 12/18/2017 Genesis Gonzalez FIELD INTERVIEWER-DIGITAL MARKETING INTERN LAB - POINT OF CA RE ORDERABLES documented in this encounter Visit Diagnoses Diagnosis Acute pharyngitis, unspecified etiology- Primary documented in this encounter
--- OUTSIDE RECORDS SUMMARY | 2024-07-11 06:08 | XMS_ITS | Encounter Summary ---
Author Organization [employer] Care Team Providers Care Refuse And Recycling Worker Name Role Phone Zoila Osei APRN, CNP Primary Care Provider Encounter Details Date Type Department Care Team (Latest Contact Info) Description 08/18/2020 Travel Social History Tobacco Use Types Packs/Day Years Used Date Smoking Tobacco: Never Smokeless Tobacco: Never Alcohol Use Standard Drinks/Week Comments Yes 0 (1 standard drink = 0.6 oz pur e alcohol) Comments Yes Sex and Gender Information Value Date Recorded Sex Assigned at Not on file Legal Sex Female 8:08 PM CDT Gender Identity Not on file Sexual Orientation Not on file COVID-19 Exposure Response Date Recorded In the last month, have you been in contact with someone who was confirmed or suspected to have Coronavirus / COVID-19? No / Unsure 08/18/2020 6:30 AM HAND ROUNDER documented as of this encounter Plan of Treatment Not on file documented as of this encounter Visit Diagnoses Not on filedocumented in this encounter Care Teams Refuse And Recycling Worker Relationship Specialty Start Date End Date Zoila Osei APRN, CNP PCP - General Advanced Practice Nurse 11/06/17 documented as of this encounter
--- OUTSIDE RECORDS SUMMARY | 2024-07-11 06:08 | XMS_ITS | Encounter Summary ---
Author Organization [facility] Address [address] [place] [address] Care Team Providers Care Summer Nanny Name Role Phone No, Physician Primary Care Provider [phone] Reason for Visit * Diagnostic Imaging (Routine) - Closed Specialty Diagnoses / Procedures Referred By Contac t Referred To Contact Diagnoses Lymphadenopathy, axillary Procedures US Axillary Left US Breast Left Limited JossetVirginia MD PhD [address] [place] [address] Phone: tel: fax: [address] [address] Referral ID Status Reason Start Date Expiration Date Visits Re quested Visits Authorized [id number] Closed 10/13/2020 11/12/2021 1 1 Encounter Details Date Type Department Care Team (Latest Contact Info) Description 11/08/2020 8:48 AM CDT - 11/08/2020 11:59 PM CDT Hospital Encounter [facility] [address] [place] [address] Virginia Yang MD PhD [address] [place] [address] Lymphadenopathy, axillary Discharge Disposition: Discharge to home or self care Social History Tobacco Use Types Packs/Day Years Used Date Smoking Tobacco: Never Comments Unknown Sex and Gender Information Value Date Recorded Sex Assigned at Not on file Legal Sex Female 7:22 PM CHUCK TENDER Gender Identity Not on file Sexual Orientation Not on file documented as of this encounter Discharge Disposition Disposition Code Departure Means Destination Discharge to home or self care documented in this encounter Plan of Treatment Not on file documented as of this encounter Procedures Procedure Name Priority Date/Time Associated Diagnosis Comments US AXILLARY LEFT Schedule Routine, Read Routine (OP Routine) 11/08/2020 10:07 AM CDT Lymphadenopathy, axillary documented in this encounter Results * US Axillary Left (11/08/2020 10:07 AM CDT) Anatomical Region Laterality Modality Upper Extremities Left Ultrasound 11/08/2020 10:1 0 AM CDT Impressions 11/08/2020 11:56 AM CDT 1. Normal ultrasound of the left axilla. ??In the absence of imaging findings, decision for further intervention should be based on the clinical assessment. OVERALL FINAL ASSESSMENT: BI-RADS Category 1: Negative. Continued clinical follow-up is recommended. Dictated by: Guillaume Saucedo MD, PHD The radiology attending physician has personally reviewed this study, and had reviewed and/or edited this written report and agrees with it. Electronically signed by: Nita Ahmadi M.D. Narrative 11/08/2020 11:56 AM CDT EXAMINATION: LEFT AXILLARY ULTRASOUND HISTORY: 25-year-old female at 26 weeks gestation presenting with waxing and waning swelling and tenderness in the left axilla for the past 7 months. COMPARISON: None available TECHNIQUE: Directed ultrasound evaluation of the LEFT axilla was performed. ULTRASOUND FINDINGS: Targeted ultrasound of the left axilla in the area of concern demonstrates no sonographic abnormality. ??There is no mass, fluid collection, or lymphadenopathy. Procedure Note Nita Ahmadi MD - 11/08/2020 EXAMINATION: LEFT AXILLARY ULTRASOUND HISTORY: 25-year-old female at 26 weeks gestation presenting with waxing and waning swelling and tenderness in the left axilla for the past 7 months. COMPARISON: None available TECHNIQUE: Directed ultrasound evaluation of the LEFT axilla was performed. ULTRASOUND FINDINGS: Targeted ultrasound of the left axilla in the area of concern demonstrates no sonographic abnormality. There is no mass, fluid collection, or lymphadenopathy. IMPRESSION: 1. Normal ultrasound of the left axilla. In the absence of imaging findings, decision for further intervention should be based on the clinical assessment. OVERALL FINAL ASSESSMENT: BI-RADS Category 1: Negative. Continued clinical follow-up is recommended. Dictated by: Guillaume Saucedo MD, PHD The radiology attending physician has personally reviewed this study, and had reviewed and/or edited this written report and agrees with it. Electronically signed by: Nita Ahmadi M.D. us Virginia Yang MD PhD IMG US PROCEDURES Final Re sult documented in this encounter Visit Diagnoses Diagnosis Lymphadenopathy, axillary documented in this encounter Care Teams Summer Nanny Relationship Specialty Start Date End Date No, Physician PCP - General 10/10/20 documented as of this encounter
--- OUTSIDE RECORDS SUMMARY | 2024-07-11 06:08 | XMS_ITS | Encounter Summary ---
Author Organization [facility] Address [address] [place] [address] Phone Care Team Providers Care Drawbridge Operator Name Role Phone No, Physician Primary Care Provider [phone] Encounter Details Date Type Department Care Team (Late st Contact Info) Description 10/13/2020 Orders Only [facility] [address] [facility] [address]th [place] [address] Aft, Virginia Aroryo MD PhD [address] [place] [address] Lymphadenopathy, axillary (Primary Dx) Social History Tobacco Use Types Packs/Day Years Used Date Smoking Tobacco: Never Assessed Comments Unknown Sex and Gender Information Value Date Recorded Sex Assigned at Not on file Legal Sex Female 7:22 PM VISUAL DISPLAY MANAGER Gender Identity Not on file Sexual Orientation Not on file documented as of this encounter Plan of Treatment Not on file documented as of this encounter Visit Diagnoses Diagnosis Lymphadenopathy, axillary- Primary documented in this encounter Care Teams Drawbridge Operator Relationship Specialty Start Date End Date No, Physician PCP - General 10/10/20 documented as of this encounter
--- OUTSIDE RECORDS SUMMARY | 2024-07-11 06:08 | XMS_ITS | Patient Health Summary ---
Author Organization [facility] [employer] Address [address] [place] [address] Care Team Providers Care Extension Clerk Name Role Phone Unavailable Primary Care Provider Unavailabl e Note from [facility],non-owned Affiliates and Associated Physician Practices is amultiple site organization consisting of ambulatory clinics and hospital sitesin [place], [place], [place] and [place]. This disclosure is being madepursuant to the Care Everywhere program and may not contain all information available regarding this patient. Last updated 18.[facility] [employer] Allergies No known active allergies Medications Be [...] Mass Index 20.37 12/18/2017 9:31 AM CDT Procedures * STREP A SCREEN - POINT OF CARE (AMB) STL(Performed 12/18/2017) Performed for Acute pharyngitis, unspecified etiology Results * STREP A SCREEN (12/18/2017) Strep A Rapid POCT Negative Negative Strep A Internal Control Present Lot # [id number] Expiration Date 06/19/19 Throat ENTIRE THROAT (SURFACE REGION OF NECK) / Unknown 12/18/2017 Genesis Gonzalez TEXTILES SALES REPRESENTATIVE-HIGH SCHOOL LEARNING SUPPORT TEACHER LAB - POINT OF CA RE ORDERABLES
--- OUTSIDE RECORDS SUMMARY | 2024-07-11 06:08 | XMS_ITS | Encounter Summary ---
Author Organization [facility] Address [address] [place] [address] Phone Care Team Providers Care Instructor Ground Services Name Role Phone Provider, None Primary Care Provider Unavailabl e Reason for Visit * Reason Comments Chest Congestion 3 days Chills Generalized Body Aches Fever 102 Cough Encounter Details Date Type Department Care Team ([facility] st Contact Info) Description 07/18/2021 3:40 PM CUSTOM CAR BUILDER [facility] [place] [address] [place] [address] CarolinDana diamond, RECRUITMENT CONSULTANT, IT INFRASTRUCTURE PROJECT MANAGER [address] [place] [address] Fever, unspecified fever cause (Primary Dx); COVID-19 Discharge Disposition: Discharged to home or Selfcare Social History Tobacco Use Types Packs/Day Years [...] Coronavirus / COVID-19? Yes 07/18/2021 3:37 PM CUSTOM CAR BUILDER documented as of this encounter Last Filed Vital Signs Vital Sign Reading Time Taken Comments Blood Pressure 100/72 07/18/2021 3:50 PM CUSTOM CAR BUILDER Pulse 101 07/18/2021 3:50 PM CUSTOM CAR BUILDER Temperature 36.7 ??C (98.1 ??F) 07/18/2021 3:50 PM CS T Respiratory Rate 16 07/18/2021 3:50 PM CUSTOM CAR BUILDER Oxygen Saturation 98% 07/18/2021 3:50 PM CUSTOM CAR BUILDER Inhaled Oxygen Concentration - - Weight - - Height - - Body Mass Index - - documented in this encounter Patient Instructions * Patient Instructions* Dana Pelayo, ALEXANDRE, IT INFRASTRUCTURE PROJECT MANAGER - 07/18/2021 3:40 PM CUSTOM CAR BUILDER 10 Things You Can Do to Manage Your COVID-19 Symptoms at Home If you have possible or confirmed COVID-19: 1. Stay home except to get medical care. 2. Monitor your symptoms carefully. If your symptoms get worse, call your healthcare provider immediately. 3. Get rest and stay hydrated. 4. If you have a medical appointment, call the healthcare provider ahead of time and tell them thatyou have or may have COVID-19. 5. For medical emergencies, call 911 and notify the dispatch personnel that you have or may have COVID-19. 6. Cover your cough and sneezes with a tissue or use the inside of your elbow. 7. Wash your hands often with soap and water for at least 20 seconds or clean your hands with an alcohol-based hand coach builder that contains at least 60% alcohol. 8. As much as possible, stay in a specific room and away from other people in your home. Also, you should use a separate bathroom, if available. If you need to be around other people in or outside ofthe home, wear a mask. 9. Avoid sharing personal items with other people in your household, like dishes, towels, and bedding. 10. Clean all surfaces that are touched often, like counters, tabletops, and doorknobs. Use household cleaning sprays or wipes according to the label instructions. cdc.gov/coronavirus 01/26/2021 This information is not intended to replace advice given to you by your health care provider. Make sure you discuss any questions you have with your health care provider. Document Revised: 03/21/2021 Document Reviewed: 03/21/2021 [employer] Patient Education ?? 2020 [employer] Rapid COVID positive Quarantine per CDC guidelines This is a viral illness and can not be treated with antibiotics as antibiotic do not work on viruses. Antihistamine and decongestant of choice. May use crmx-jsz-swvsmdm generic fluticasone or Nasacort as directed If you use Afrin, do not use for longer than 72 hours. This may cause rebound congestion. Comfort care Tylenol or ibuprofen for fever or body aches. Rest and increase fluids. Cool mist vaporizer See family doctor if symptoms worsen or fail to resolve. OM CAR BUILDER documented in this encounter Progress Notes * Oren Nava RN - 07/18/2021 3:40 PM CST Traci Campoverde complains of Pt states that she has had symptoms since friday Chest Congestion This is a new problem. The current episode started in the past 7 days. The problem occurs constantly. The problem has been unchanged. Associated symptoms include chills, congestion, coughing, a feverand headaches. Nothing aggravates the symptoms. She has tried acetaminophen and lying down for the symptoms. Chills Associated symptoms include chills, congestion, coughing, a fever and headaches. Generalized Body Aches This is a new problem. The current episode started in the past 7 days. The problem occurs constantly. The problem has been gradually worsening. Associated symptoms include chills, congestion, coughing, a fever and headaches. Nothing aggravates the symptoms. She has tried acetaminophen, lying down, NSAIDs, position changes and sleep for the symptoms. Fever Associated symptoms include congestion, coughing and headaches. Cough Associated symptoms include chills, a fever and headaches. Today's Review of Systems Constitutional: Positive for chills and fever. HENT: Positive for congestion. Respiratory: Positive for cough. Neurological: Positive for headaches. OM CAR BUILDER documented in this encounter H&P Notes * Dana Pelayo APRN, JANETH - 07/18/2021 3:40 PM CST Subjective: Traci Campoverde is a 26 y.o. female in the [facility] care today for cough. Symptoms started 2 days ago Severity of symptoms is not improving Associated symptoms include See ROS Patient is currently taking over the counter tylenol, becka seltzer for the symptoms. Smoker: No Known exposure New Years mann Unvaccinated No pertinent Past, family, or social history was noted Review of Systems Constitutional: Positive for chills, fatigue and fever (102.1). HENT: Positive for sore throat. Respiratory: Positive for cough. Gastrointestinal: Positive for nausea. Musculoskeletal: Positive for myalgias. Neurological: Positive for headaches. All other systems reviewed and are negative. Objective: Physical Exam Vitals and nursing note reviewed. Constitutional: Appearance: Normal appearance. HENT: Head: Normocephalic and atraumatic. Nose: Congestion present. Mouth/Throat: Pharynx: Posterior oropharyngeal erythema present. Cardiovascular: Rate and Rhythm: Normal rate and regular rhythm. Pulmonary: Effort: Pulmonary effort is normal. Breath sounds: Normal breath sounds. Musculoskeletal: General: Normal range of motion. Cervical back: Normal range of motion and neck supple. Lymphadenopathy: Cervical: Cervical adenopathy present. Skin: General: Skin is warm and dry. Neurological: Mental Status: She is alert and oriented to person, place, and time. Psychiatric: Mood and Affect: Mood normal. Behavior: Behavior normal. Thought Content: Thought content normal. Judgment: Judgment normal. Assessment and Plan 1. Fever, unspecified fever cause See plan below - POCT SARS ANTIGEN RAVIN/INFLUENZA A & B COMBINATION 2. COVID-19 Rapid FLU negative Rapid COVID positive Quarantine per CDC guidelines This is a viral illness and can not be treated with antibiotics as antibiotic do not work on viruses. Antihistamine and decongestant of choice. May use vszd-kaj-hsdzsif generic fluticasone or Nasacort as directed If you use Afrin, do not use for longer than 72 hours. This may cause rebound congestion. Comfort care Tylenol or ibuprofen for fever or body aches. Rest and increase fluids. Cool mist vaporizer See family doctor if symptoms worsen or fail to resolve. OM CAR BUILDER documented in this encounter Plan of Treatment Not on file documented as of this encounter Procedures Procedure Name Priority Date/Time Associated Diagnosis Comments POCT SARS ANTIGEN RAVIN/INFLUENZA A & B COMBINATION Routine 07/18/2021 4:14 PM CUSTOM CAR BUILDER Fever, unspecified fever cause documented in this encounter Results * (ABNORMAL) POCT SARS ANTIGEN RAVIN/INFLUENZA A & B COMBINATION (07/18/2021 4:14 PM CUSTOM CAR BUILDER) POC SARS ANTIGEN RAVIN Positive(A) Negative POC SARS ANTIGEN RAVIN CONTROL Living Nurse Pass Rapid Influenza A PRESUMPTIVE NEGATIVE FOR THE PRESENCE OF INFLUENZA A ANTIGEN PRESUMPTIVE NEGATIVE FOR THE PRESENCE OF INFLUENZA A ANTIGEN, INDETERMINATE Rapid Influenza B PRESUMPTIVE NEGATIVE FOR THE PRESENCE OF INFLUENZA B ANTIGEN PRESUMPTIVE NEGATIVE FOR THE PRESENCE OF INFLUENZA B ANTIGEN, INDETERMINATE POC INFLUENZA CONTROL Living Nurse Pass Swab NASAL STRUCTURE / Unknown 07/18/2021 4:14 PM CUSTOM CAR BUILDER us Dana Pelayo RECRUITMENT CONSULTANT, IT INFRASTRUCTURE PROJECT MANAGER POINT OF CARE GUS SIMPSON (MANUAL) Final Result documented in this encounter Visit Diagnoses Diagnosis Fever, unspecified fever cause- Primary COVID-19 documented in this encounter Care Teams Instructor Ground Services Relationship Specialty Start Date End Date Provider, None [place] PCP - General 12/28/20 documented as of this encounter
--- OUTSIDE RECORDS SUMMARY | 2024-07-11 06:08 | XMS_ITS | Referral Summary ---
Author Organization [address] Address [address] [place] [address] [place] [address] Care Team Providers Care Three Dimensional Map Modeler Name Role Phone No, Physician Primary Care Provider [phone] Allergies No known active allergies Medications No known medications Active Problems Problem Noted Date Diagnosed Date Axillary adenopathy 11/08/2020 Social History Tobacco Use Types Packs/Day Years Used Date Smoking Tobacco: Never Personal Safety Answer Date Recorded Getting School Help Needed Not on file 09/07 Comments Unknown Sex and Gender Information Value Date Recorded Sex Assigned at Not on file Legal Sex Female 7:22 PM 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 Care Teams Three Dimensional Map Modeler Relationship Specialty Start Date End Date No, Physician PCP - General 10/10/20
--- OUTSIDE RECORDS SUMMARY | 2024-07-11 06:08 | XMS_ITS | Clinical Summary ---
Author Organization [address] Address [address] [place] [address] [place] [address] Care Team Providers Care Tree Expert Name Role Phone No, Physician Primary Care Provider [phone] Allergies No known active allergies Medications No known medications Active Problems Problem Noted Date Diagnosed Date Axillary adenopathy 11/08/2020 Family History Medical History Relation Name Comments Breast cancer Father's Sister Cervical cancer Mother Lung cancer Mother's Sister Relation Name Status Comments Father's Sister Mother Mother's Sister Social History Tobacco Use Types Packs/Day Years Used Date Smoking Tobacco: Never Personal Safety Answer Date Recorded Getting School Help Needed Not on file 09/07 Comments Unknown Sex and Gender Information Value Date Recorded Sex Assigned at Not on file Legal Sex Female 7:22 PM PROCESS STRIPPER Gender Identity Not on file Sexual Orientation Not on file Obstetrics History Last Filed Vital Signs Vital Sign Reading [...] Plan of Treatment Not on file Insurance [facility] Care Teams Tree Expert Relationship Specialty Start Date End Date No, Physician PCP - General 10/10/20
--- OUTSIDE RECORDS SUMMARY | 2024-07-11 06:08 | XMS_ITS | Encounter Summary ---
Author Organization [facility] Address [address] [place] [address] Phone Care Team Providers Care Molding Cutter Name Role Phone Zoila Osei APRN, CNP Primary Care Provider Reason for Referral * Radiology Services (Routine) - Closed Specialty Diagnoses / Procedures Referred By Adelso fall Referred To Contact Radiology Diagnoses Left axillary pain Procedures US LEFT EXTREMITY NON-VASC LTD US SOFT TISSUE UNLISTED PROCEDURE Rosalba Ralph APRN, CNP [address] [place] [address] Phone: tel: fax: Referral ID Status Reason Start Date Expiration Date Visits Re quested Visits Authorized [id number] Closed 08/11/2020 1 1 AGER HELPER Reason for Visit * Reason Comments Other patient c/o her unde rarm feeling sore X 2 months. Left arm Encounter Details Date Type Department Care Team ([facility] st Contact Info) Description 08/11/2020 4:15 PM SALVAGER HELPER Office Visit [facility] - Primary Care - [address] [place] [id number] Rosalba Ralph APRN, CNP [address] [place] [address] Left axillary pain (Primary Dx) Discharge Disposition: Discharged to home or Selfcare Social History Tobacco Use Types Packs/Day Years Used Date Smoking Tobacco: Never Smokeless Tobacco: Never Tobacco Cessation:Counseling Given: Yes Alcohol Use Standard Drinks/Week Comments Yes 0 [...] have Coronavirus / COVID-19? No / Unsure 08/11/2020 3:59 PM SALVAGER HELPER documented as of this encounter Last Filed Vital Signs Vital Sign Reading Time Taken Comments Blood Pressure 90/54 08/11/2020 4:05 PM SALVAGER HELPER Pulse 74 08/11/2020 4:05 PM SALVAGER HELPER Temperature 36.6 ??C (97.9 ??F) 08/11/2020 4:05 PM CS T Respiratory Rate 20 08/11/2020 4:05 PM SALVAGER HELPER Oxygen Saturation 98% 08/11/2020 4:05 PM SALVAGER HELPER Inhaled Oxygen Concentration - - Weight 54 kg (119 lb) 08/11/2020 4:05 PM SALVAGER HELPER Height 160 cm (5' 3 ) 08/11/2020 4:05 PM SALVAGER HELPER Body Mass Index 21.08 08/11/2020 4:05 PM SALVAGER HELPER documented in this encounter Patient Instructions * Patient Instructions* Rosalba Ralph APN, CNP - 08/11/2020 4:15 PM SALVAGER HELPER US ordered, they will contact you to set up. If any new or worsening symptoms occur, please call office. AGER HELPER documented in this encounter Progress Notes * Lorie Milian CMA - 08/11/2020 4:15 PM CST Traci Campoverde, 25 y.o., female is here for Other (patient c/o her underarm feeling sore X 2 months. Left arm ) Medication Refills: Patient reports/denies need for medication refills. Orders Pended: no Requested Prescriptions No prescriptions requested or ordered in this encounter Home Medications Medication Sig Start Date End Date Taking? Authorizing Provider dicyclomine (BENTYL) 10 MG Capsule Take 1 Cap by mouth 4 times daily (before meals and nightly). Patient not taking: Reported on 05/25/2019 11/06/17 Zoila Osei APN, CNP GILDESS 08/02 1-20 MG-MCG Tablet Take 1 Tab by mouth daily. 01/28/16 Provider, MD Roque omeprazole (PRILOSEC) 20 MG CAPSULE DELAYED RELEASE Take 1 Cap by mouth daily. Patient not taking: Reported on 11/06/2017 02/06/16 Sanchez Jasso, ondansetron (ZOFRAN-ODT) 4 MG TABLET DISPERSIBLE Take 1 Tab by mouth every 8 hours as needed for Nausea. Patient not taking: Reported on 03/14/2020 11/06/17 Zoila Osei APN, CNP Vit-Fe Fumarate-FA ( VITAMIN PO) Take by mouth. Yes Provider, MD Roque There are no discontinued medications. I have reviewed the home medication list with the patient and have reconciled discrepancies. The list is accurate to the best of my knowledge. Smoking Status: Social History Tobacco Use ??? Smoking status: Never Smoker ??? Smokeless tobacco: Never Used Substance Use Topics ??? Alcohol use: Yes Alcohol/week: 0.0 oz ??? Drug use: No Smoking Cessation Counseling Given: no Health Care Maintenance: Health Maintenance Due Topic Date Due ??? Pap Smear 2014 ??? Influenza Immunization (1) 03/14/2020 Orders Pended: no The following BPA's have been addressed with the patient today: N/A AGER HELPER * Rosalba Ralph APN, CNP - 08/11/2020 4:15 PM CST HPI Patient is a 25 y.o. female who presents today for left axillary pain. States her left axillary is tender with palpation. States he has been ongoing for quite some time. She is 13 weeks and states her OB does not believe it is associated with . She denies mass or redness to area. States she noted it when shaving and is ongoing. ROS Fourteen point review of systems negative except as documented in HPI. Physical Exam Vitals signs and nursing note reviewed. Constitutional: General: She is not in acute distress. Appearance: She is well-developed. HENT: Head: Normocephalic and atraumatic. Right Ear: External ear normal. Left Ear: External ear normal. Eyes: Conjunctiva/sclera: Conjunctivae normal. Cardiovascular: Rate and Rhythm: Normal rate. Pulmonary: Effort: Pulmonary effort is normal. No respiratory distress. Skin: General: Skin is warm and dry. Comments: Left axillary with noted mass, swelling or redness. There was tenderness with deep palpation in the center of the axillary but no other findings. Neurological: Mental Status: She is alert and oriented to person, place, and time. Psychiatric: Behavior: Behavior normal. Thought Content: Thought content normal. Judgment: Judgment normal. Vitals: 08/11/20 1605 BP: 90/54 BP Location: Right Arm BP Position: Sitting BP Cuff Size: Regular Pulse: 74 Resp: 20 Temp: 97.9 ??F (36.6 ??C) TempSrc: Temporal SpO2: 98% Weight: 119 lb (54 kg) Height: 5' 3 (1.6 m) Body mass index is 21.08 kg/m??. Past, family, and social history reviewed and updated in the chart. Assessment/Plan: 1. Left axillary pain Exam was essentially normal except for some TTP. No sign of systemic infection. Will order US to view soft tissues. - US SOFT TISSUE UNLISTED PROCEDURE; Future Patient Instructions US ordered, they will contact you to set up. If any new or worsening symptoms occur, please call office. Patient verbalizes understanding and agrees with plan of care as noted above. New medication discussed with patient and family, including action of medication, potential side effects, interactions, and consequences for not taking it. Patient states understanding of new medication instructions. Written education on new medication added to patient printed AVS. An After Visit Summary was printed and given to the patient. Documentation for this visit on 08/11/20 was completed using a template. I have seen and examined the patient. Everything documented was personally performed at this visit with the necessary additions, deletions and changes made as appropriate. AGER HELPER documented in this encounter Plan of Treatment Not on file documented as of this encounter Results * US LEFT EXTREMITY NON-VASC LTD (08/18/2020 7:07 AM SALVAGER HELPER) Anatomical Region Laterality Modality BODY Left Ultrasound 08/20/2020 7:42 AM SALVAGER HELPER Impressions 08/20/2020 7:45 AM SALVAGER HELPER IMPRESSION: ?? No significant abnormality identified. ??No mass or fluid collection Narrative 08/20/2020 7:45 AM SALVAGER HELPER EXAM DESCRIPTION: ?? US LEFT EXTREMITY NON-VASC LTD REASON FOR STUDY: ?? Upper arm pain for a few months TECHNIQUE: ?? Targeted sonogram of the left axilla performed COMPARISON: ?? None FINDINGS: ?? No mass fluid collection or foreign body THIS IS AN ELECTRONICALLY VERIFIED FINAL REPORT 08/20/2020 7:42 AM - Electronically signed by Marko Mejia M.D. NC: NC D: ??08/20/2020 7:42 AM T: ??08/20/2020 7:42 AM Report ID: [id number] Reading Location: ??[id number] Procedure Note Marko Mejia MD - 08/20/2020 EXAM DESCRIPTION: US LEFT EXTREMITY NON-VASC LTD REASON FOR STUDY: Upper arm pain for a few months TECHNIQUE: Targeted sonogram of the left axilla performed COMPARISON: None FINDINGS: No mass fluid collection or foreign body THIS IS AN ELECTRONICALLY VERIFIED FINAL REPORT 08/20/2020 7:42 AM - Electronically signed by Marko Mejia M.D. NC: NC Report ID: [id number] Reading Location: [id number] IMPRESSION: No significant abnormality identified. No mass or fluid collection us Rosalba Ralph APRN, CNP IMG US ORDERABL ES Final Result documented in this encounter Visit Diagnoses Diagnosis Left axillary pain- Primary Pain in limb Left axillary pain Pain in limb documented in this encounter Care Teams Molding Cutter Relationship Specialty Start Date End Date Zoila Osei APRN, WARE FINISHER PCP - General Advanced Practice Nurse 11/06/17 documented as of this encounter
--- OUTSIDE RECORDS SUMMARY | 2024-07-11 06:08 | XMS_ITS | Encounter Summary ---
Author Organization [facility] Care Team Providers Care Informatics Nurse Name Role Phone Zoila Osei APRN, CNP Primary Care Provider Encounter Details Date Type Department Care Team (Latest Contact Info) Description 08/11/2020 Travel Social History Tobacco Use Types Packs/Day [...] COVID-19? No / Unsure 08/11/2020 3:59 PM URGENT CARE NURSE PRACTITIONER documented as of this encounter Plan of Treatment Not on file documented as of this encounter Visit Diagnoses Not on filedocumented in this encounter Care Teams Informatics Nurse Relationship Specialty Start Date End Date Zoila Osei APRN, CNP PCP - General Advanced Practice Nurse 11/06/17 documented as of this encounter
--- OUTSIDE RECORDS SUMMARY | 2024-07-11 06:08 | XMS_ITS | Encounter Summary ---
Author Organization [employer] Care Team Providers Care Mastercam Programmer Name Role Phone Zoila Osei APRN, CNP Primary Care Provider Encounter Details Date Type Department Care Team (Latest Contact Info) Description 02/25/2020 Travel Social History Tobacco Use Types Packs/Day Years Used Date Smoking Tobacco: Never Smokeless Tobacco: Never Alcohol Use Standard Drinks/Week Comments Yes 0 (1 standard drink = 0.6 oz pur e alcohol) Comments No Sex and Gender Information Value Date Recorded Sex Assigned at Not on file Legal Sex Female 8:08 PM CDT Gender Identity Not on file Sexual Orientation Not on file COVID-19 Exposure Response Date Recorded In the last month, have you been in contact with someone who was confirmed or suspected to have Coronavirus / COVID-19? Yes 02/25/2020 9:07 AM CDT documented as of this encounter Plan of Treatment Not on file documented as of this encounter Visit Diagnoses Not on filedocumented in this encounter Additional Health Concerns Infection Onset Date Last Indicated Resolved Time COVID - 19 02/25/2020 02/25/2020 02/27/2020 6:06 AM CDT documented as of this encounter Care Teams Mastercam Programmer Relationship Specialty Start Date End Date Zoila Osei APRN, CNP PCP - General Advanced Practice Nurse 11/06/17 documented as of this encounter
--- OUTSIDE RECORDS SUMMARY | 2024-07-11 06:08 | XMS_ITS | Encounter Summary ---
Author Organization [facility] Address [address] [place] [address] Phone Care Team Providers Care Return To Factory Clerk Name Role Phone Zoila Osei APRN, CNP Primary Care Provider Encounter Details Date Type Department Care Team (Late st Contact Info) Description 08/21/2020 Telephone [facility] - Primary Care - [address] [place] [address] Zoila Osei APRN, MOLDING LINE OPERATOR [address] [place] [address] Social History Tobacco Use Types Packs/Day Years [...] COVID-19? No / Unsure 08/18/2020 6:30 AM BADGER DISTILLER OPERATOR documented as of this encounter Miscellaneous Notes * Telephone Encounter - Zulma Rodriguez RN - 08/21/2020 8:51 AM BADGER DISTILLER OPERATOR Called patient to inform-verbalized understanding. ER DISTILLER OPERATOR * Telephone Encounter - Zulma Rodriguez RN - 08/21/2020 8:50 AM BADGER DISTILLER OPERATOR ----- Message from Iglesia Hurtado PAC sent at 08/20/2020 9:14 PM BADGER DISTILLER OPERATOR ----- Please call patient to let them know that results of ultrasound were normal, no mass or fluid collection. If pain persists or worsens schedule f/u appt with PCP. ER DISTILLER OPERATOR documented in this encounter Plan of Treatment Not on file documented as of this encounter Visit Diagnoses Not on filedocumented in this encounter Care Teams Return To Factory Clerk Relationship Specialty Start Date End Date Zoila Osei APRN, MOLDING LINE OPERATOR PCP - General Advanced Practice Nurse 11/06/17 documented as of this encounter
--- OUTSIDE RECORDS SUMMARY | 2024-07-11 06:08 | XMS_ITS | Encounter Summary ---
Author Organization [email or web address] Care Team Providers Care Small Piece Cutter Name Role Phone Zoila Osei APRN, CNP Primary Care Provider Encounter Details Date Type Department Care Team (Latest Contact Info) Description 03/14/2020 Travel Social History Tobacco Use Types Packs/Day [...] suspected to have Coronavirus / COVID-19? Yes 03/14/2020 5:54 PM CDT documented as of this encounter Plan of Treatment Not on file documented as of this encounter Visit Diagnoses Not on filedocumented in this encounter Additional Health Concerns Infection Onset Date Last Indicated Resolved Time COVID - 19 03/14/2020 03/15/2020 03/18/2020 4:34 PM CDT documented as of this encounter Care Teams Small Piece Cutter Relationship Specialty Start Date End Date Zoila Osei APRN, CNP PCP - General Advanced Practice Nurse 11/06/17 documented as of this encounter
--- OUTSIDE RECORDS SUMMARY | 2024-07-11 06:08 | XMS_ITS | Encounter Summary ---
Author Organization [facility] Address [address] [place] [address] Phone Care Team Providers Care Prepper Name Role Phone Zoila Osei APRN, CNP Primary Care Provider Reason for Visit * Reason Comments COVID-19 Encounter Details Date Type Department Care Team ([facility] Contact Info) Description 02/25/2020 9:45 AM CDT Telemedicine [facility] [address] [place] [address] Angélica Bloom, DOOR FRAMER, AGILE TESTER [address] [place] [address] Cough (Primary Dx); Sore throat; Close exposure to COVID-19 virus Discharge Disposition: Discharged to home or Selfcare [...] AM CDT documented as of this encounter Progress Notes * Angélica Patel, CUSTOMER SUCCESS ASSOCIATE, AGILE TESTER - 02/25/2020 9:45 AM CDT Images from the original note were not included. [facility] SUBJECTIVE Chief Complaint Patient presents with ??? COVID-19 HPI Patient is a 24 year old female calling with concerns for COVID 19. Direct exposure on 02.20.20. Symptoms onset 02.23.20. +cough, sore throat, temp 99, headache -vomiting, diarrhea, loss of smell/ taste, sob, chest pain Denies chronic medical conditions. No Known Allergies No past medical history on file. Social History Substance and Sexual Activity Alcohol Use Yes ??? Alcohol/week: 0.0 oz Social History Tobacco Use Smoking Status Never Smoker Smokeless Tobacco Never Used Current Outpatient Medications on File Prior to Visit Medication Sig Dispense Refill ??? dicyclomine (BENTYL) 10 MG Capsule Take 1 Cap by mouth 4 times daily (before meals and nightly). (Patient not taking: Reported on 05/25/2019) 30 Cap 1 ??? GILDESS 08/02 1-20 MG-MCG Tablet Take 1 Tab by mouth daily. 11 ??? omeprazole (PRILOSEC) 20 MG CAPSULE DELAYED RELEASE Take 1 Cap by mouth daily. (Patient not taking: Reported on 11/06/2017) 20 Cap 0 ??? ondansetron (ZOFRAN-ODT) 4 MG TABLET DISPERSIBLE Take 1 Tab by mouth every 8 hours as needed for Nausea. 10 Tab 0 No current facility-administered medications on file prior to visit. There is no problem list on file for this patient. Review of Systems Chief complaint and all history documented by ancillary staff were reviewed and verified with additions or corrections as appropriate. OBJECTIVE Speaking in complete sentences. No distress or coughing noted during dialogue. Physical Exam ASSESSMENT/PLAN Education (as applicable): - Discussed further in-person evaluation including option of ED visit at this time. Pt declined further evaluation at this time. Pt would like to use conservative management and remain home. Discussed risks associated with this decision and pt voices understanding. - Patient counseled to remain at home unless symptoms get worse. If symptoms worsen, the patient was counseled to call back to their PCP office (or this triage line if no PCP) or go to ED immediatelyfor severe symptoms. - If symptomatic or symptoms develop within those 14 days of quarantine, stay home until these three things have happened: - No fever for 24 hours (without the use of medicine) AND - Other symptoms have improved (ie cough, SOB) AND - at least 10 days have passed since your symptoms first appeared - Patient to push fluid intake and take Tylenol PRN for fever, body aches. - If you do not live alone: segregate yourself, use a separate bathroom if possible, sleep in a separate area, have no/limited family time, and the person with symptoms is not to prepare food for others. - Patient advised to contact employer now to report positive screen and symptoms. - Per CDC: Employers should not require a positive COVID-19 test result or a healthcare provider's note for employees who are sick to validate their illness, qualify for sick leave, or to return to work. [facility] HealthCare is not providing excuse for work notes or return to work notes at this time per CDC recommendations. Caller verbalizes understanding of the above information. Recommended disposition of Home self-care supported by the above documentation. Patient agreed withdisposition. Diagnoses and all orders for this visit: Cough - SARS-COV-2 BY PCR; Future Sore throat - SARS-COV-2 BY PCR; Future Close exposure to COVID-19 virus - SARS-COV-2 BY PCR; Future Patient was assessed via telephone for a duration of 0-15 minutes. Patient verbally consented for this service to be performed. - Angélica Patel APN, JANETH documented in this encounter Plan of Treatment Not on file documented as of this encounter Results * SARS-COV-2 BY PCR (02/25/2020 12:04 PM CDT) SARSCOV2 NOT DETECTED (Reference Range for this test is Not Detected) 02/26/2020 10:08 AM CDT [facility] Swab NASOPHARYNGEAL STRUCTURE / Unknown Non-Phlebotomy Collection / Unknown 02/25/2020 12:04 PM CDT 02/25/2020 12:04 PM CDT Narrative [facility] - 02/26/2020 10:08 AM CDT Authorized Fact Sheets about this test for providers and patients are available at: https://www.fda.gov/medical-devices/uheetxhle-xkdnibvkar-boqolzp-devices/emergen -us e-authorizations us Angélica Bloom APRN, CNP MICROBIOLOGY - GENERA L ORDERABLES Final Result [facility] [address] [place] [address], documented in this encounter Visit Diagnoses Diagnosis Cough- Primary Sore throat Acute pharyngitis Close exposure to COVID-19 virus documented in this encounter Additional Health Concerns Infection Onset Date Last Indicated Resolved Time COVID - 19 02/25/2020 02/25/2020 02/27/2020 6:06 AM CDT documented as of this encounter Care Teams Prepper Relationship Specialty Start Date End Date Zoila Osei APRN, JANETH PCP - General Advanced Practice Nurse 11/06/17 documented as of this encounter
--- OUTSIDE RECORDS SUMMARY | 2024-07-11 06:08 | XMS_ITS | Encounter Summary ---
Author Organization [facility] Address [address] [place] [address] Care Team Providers Care Licensed Dispensing Optician Name Role Phone Unavailable Primary Care Provider Unavailabl e Reason for Visit * Reason Onset Date Comments Follow-up 12/20/2017 Encounter Details Date Type Department Care Team ([facility] st Contact Info) Description 12/20/2017 Telephone [facility] [address] [address] Genesis Gonzalez, [facility] [address] [phone] Follow-up Social History Tobacco Use Types Packs/Day Years [...]
--- OUTSIDE RECORDS SUMMARY | 2024-07-11 06:08 | XMS_ITS | Encounter Summary ---
Author Organization [facility] Address [address] [facility] [address] [facility] [address] [place] [address] Phone Care Team Providers Care Food And Drug Inspector Name Role Phone Lan Oseisoha SCHROEDER CNP Primary Care Provider Reason for Visit * Reason Onset Date Comments COVID-19 02/25/2020 Encounter Details Date Type Department Care Team (Late st Contact Info) Description 02/25/2020 [facility] [address] [place] [address] Provider, None [place] COVID-19 Social History Tobacco Use Types Packs/Day Years [...] AM CDT documented as of this encounter Miscellaneous Notes * Telephone Encounter - Mildred Adams RN - 02/25/2020 9:29 AM CDT Images from the original note were not included. Travel Screening Question Response In the last month, have you been in contact with someone who was confirmed or suspected to have Coronavirus / COVID-19? Yes Do you have any of the following symptoms? Sore throat;Cough (temp 99) Have you traveled internationally in the last month? 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 If symptoms increase, change, or if new symptoms develop, call back or call your HCP. Recommendations were based on caller information and are not a diagnosis. Verified and reviewed all triage information with caller. Patient request for an excuse note: (Per CDC: Employers should not require a positive COVID-19 testresult or a healthcare provider's note for employees who are sick to validate their illness, qualify for sick leave, or to return to work.) o If patient continues to request/need a return to work note, ask them to send a request via [employer] to their provider (you may need to activate a [employer] account with them). You may also route an excuse note request to the provider. Inform the patient that the provider will determine if a note will be sent and let them know that a telephone visit may be required. Caller verbalizes understanding of the above information. Mildred Adams RN Reason for Disposition ??? [1] COVID-19 infection suspected by caller or triager AND [2] mild symptoms (cough, fever, or others) AND [3] no complications or SOB Answer Assessment - Initial Assessment Questions 1. COVID-19 DIAGNOSIS: Who made your Coronavirus (COVID-19) diagnosis? Was it confirmed by a positive lab test? If not diagnosed by a HCP, ask Are there lots of cases (community spread) where you live? (See public health department website, if unsure) [facility]- not tested yet 2. ONSET: When did the COVID-19 symptoms start? Started Friday 3. WORST SYMPTOM: What is your worst symptom? (e.g., cough, fever, shortness of breath, muscle aches) cough 4. COUGH: Do you have a cough? If so, ask: How bad is the cough? Frequent in the AM and night- mostly dry- can cough phlegm up at times 5. FEVER: Do you have a fever? If so, ask: What is your temperature, how was it measured, and when did it start? 99 for the last week- 6. RESPIRATORY STATUS: Describe your breathing? (e.g., shortness of breath, wheezing, unable to speak) No SOB 7. [id number]: Are you getting better, staying the same or getting worse compared to yesterday? If getting worse, ask, In what way? same 8. HIGH RISK DISEASE: Do you have any chronic medical problems? (e.g., asthma, heart or lung disease, weak immune system, etc.) no 9. : Is there any chance you are ? When was your last menstrual period? no 10. OTHER SYMPTOMS: Do you have any other symptoms? (e.g., chills, fatigue, headache, loss of smell or taste, muscle pain, sore throat) Sore throat and states feeling fatigue now Protocols used: CORONAVIRUS (COVID-19) DIAGNOSED OR [id number] * Telephone Encounter - Shukri Lombardi, [facility] - 02/25/2020 9:06 AM CDT Images from the original note were not included. Travel Screening Question Response In the last month, have you been in contact with someone who was confirmed or suspected to have Coronavirus / COVID-19? Yes Do you have any of the following symptoms? Sore throat;Cough (temp 99) Have you traveled internationally in the last month? No Travel History Travel since 01/25/20 No documented travel since 01/25/20 Patients whose symptoms require immediate emergency assistance should be directed to contact 911 for emergency assistance. If the triage nurse is calling 911, notify the dispatcher of the positive screening. Screening Results: COVID-19 LIKE SYMPTOMS State to Patient: Based on your answers, I recommend that you please remain on the line while I transfer you to a triage nurse who can advise you further on next steps. Did patient refuse coverstitch binder? no. ??? If patient refuses to speak to a nurse: Please continue to monitor your symptoms and if they get worse, do not hesitate to call us back. We are here 03/02. We recommend you refer to the CDC website regarding guidelines for self- isolation and thank you for calling. SHUKRI LOMBARDI PTA documented in this encounter Plan of Treatment Not on file documented as of this encounter Visit Diagnoses Not on filedocumented in this encounter Care Teams Food And Drug Inspector Relationship Specialty Start Date End Date Zoila Osei APRN, SUPPLY SPECIALIST PCP - General Advanced Practice Nurse 11/06/17 documented as of this encounter
--- OUTSIDE RECORDS SUMMARY | 2024-07-11 06:08 | XMS_ITS | Encounter Summary ---
Author Organization [facility] Address [address] [place] [address] Phone Care Team Providers Care Working Foreman Name Role Phone Zoila Osei APRN JANETH Primary Care Provider Reason for Visit * Reason Comments Sore Throat Cough Chills Headache Encounter Details Date Type Department Care Team (Late st Contact Info) Description 03/15/2020 8:00 AM CDT Clinical Support [facility] - [facility] [place] [address] [place] [phone] Testing, [facility] Nurse [place] Rash in adult; Sore throat; Nonintractable headache, unspecified chronicity pattern, unspecified headache type; Nasal congestion; Post-nasal drip; Diarrhea, unspecified type Discharge Disposition: Discharged to home or Selfcare [...] PM CDT documented as of this encounter Progress Notes * Kimberly Javed RN - 03/15/2020 8:00 AM CDT Patient presents to prompt care in personal car for drive up nasopharyngeal COVID 19 swab. right nare swabbed with no difficulty and patient tolerated well. Written instruction given on care at home, home isolation, and symptoms that would require an ER visit. Specimen sent to [facility] documented in this encounter Plan of Treatment Not on file documented as of this encounter Procedures Procedure Name Priority Date/Time Associated Diagnosis Comments SARS-COV-2 BY MOLECULAR Routine 03/15/2020 7:35 AM CDT Rash in adult Sore throat Nonintractable headache, unspecified chronicity pattern, unspecified headache type Nasal congestion Post-nasal drip Diarrhea, unspecified type documented in this encounter Results * SARS-COV-2 BY PCR (03/15/2020 7:35 AM CDT) SARSCOV2 NOT DETECTED (Reference Range for this test is Not Detected) 03/16/2020 11:53 AM CDT [facility] Swab NASOPHARYNGEAL STRUCTURE / Unknown Non-Phlebotomy Collection / Unknown 03/15/2020 7:35 AM CDT 03/15/2020 7:35 AM CDT Narrative [facility] - 03/16/2020 11:53 AM CDT Authorized Fact Sheets about this test for providers and patients are available at: https://www.fda.gov/medical-devices/kugluuufd-kqheaapaxx-yakgdhv-devices/emergen -us e-authorizations us Toni Stark APRN, PAYROLL ACCOUNTING MANAGER MICROBIOLOGY - GENERAL O RDERABLES Final Result [facility] [address] [place] [address], documented in this encounter Visit Diagnoses Diagnosis Rash in adult Sore throat Acute pharyngitis Nonintractable headache, unspecified chronicity pattern, unspecified headache type Nasal congestion Other diseases of nasal cavity and sinuses Post-nasal drip Postnasal drip Diarrhea, unspecified type documented in this encounter Additional Health Concerns Infection Onset Date Last Indicated Resolved Time COVID - 19 03/14/202003/15/2020 03/18/2020 4:34 PM CDT documented as of this encounter Care Teams Working Foreman Relationship Specialty Start Date End Date Zoila Osei APRN, JANETH PCP - General Advanced Practice Nurse 11/06/17 documented as of this encounter
--- OUTSIDE RECORDS SUMMARY | 2024-07-11 06:08 | XMS_ITS | Encounter Summary ---
Author Organization [facility] Address [address] [place] [address] Care Team Providers Care Medication Technician Name Role Phone No, Physician Primary Care Provider [phone] Encounter Details Date Type Department Care Team (Latest Contact Info) Description 10/24/2020 10:43 AM CDT - 10/24/2020 11:59 PM CDT Hospital Encounter [facility] [address] [place] [id number] Discharge Disposition: Discharge to home or self care Social History Tobacco Use Types Packs/Day Years Used Date Smoking Tobacco: Never Assessed Comments Unknown Sex and Gender Information Value Date Recorded Sex Assigned at Not on file Legal Sex Female 7:22 PM RIP SAWYER Gender Identity Not on file Sexual Orientation Not on file documented as of this encounter Discharge Disposition Disposition Code Departure Means Destination Discharge to home or self care documented in this encounter Plan of Treatment Not on file documented as of this encounter Procedures Procedure Name Priority Date/Time Associated Diagnosis Comments BREAST IMAGING OUTSIDE REFERENCE Schedule Routine, Read Routine (OP Routine) 10/24/2020 10:43 AM CDT Lymphadenopathy, axillary documented in this encounter Results * Breast Imaging Outside Reference (10/24/2020 10:43 AM CDT) Impressions [facility] - 10/24/2020 10:43 AM CDT These images are for Reference purposes only and have not been reviewed by [facility] Radiology. ??There will be no report generated by a [facility] Radiologist. Narrative [facility] - 10/24/2020 10:43 AM CDT EXAMINATION: ??Images For Reference Purposes Only us Self Referral IMG MAMMO PROCEDURES Final Resul t [facility] documented in this encounter Visit Diagnoses Not on filedocumented in this encounter Care Teams Medication Technician Relationship Specialty Start Date End Date No, Physician PCP - General 10/10/20 documented as of this encounter
--- OUTSIDE RECORDS SUMMARY | 2024-07-11 06:08 | XMS_ITS | Encounter Summary ---
Author Organization [facility] Address [address] [place] [address] Phone Care Team Providers Care Silver Cleaner Name Role Phone Zoila Osei APRN JANETH Primary Care Provider Reason for Visit * Reason Comments Cough Sore Throat COVID-19 exposure Encounter Details Date Type Department Care Team (Late st Contact Info) Description 02/25/2020 1:20 PM CDT Clinical Support [facility] - [facility] [place] [address] [place] [address] Testing, [facility] Nurse [place] Cough; Sore throat; Close exposure to COVID-19 virus [...] Progress Notes * Kimberly Javed RN - 02/25/2020 1:20 PM CDT Patient presents to prompt care in personal car for drive up nasopharyngeal COVID 19 swab. right nare swabbed with no difficulty and patient tolerated well. Written instruction given on care at home, home isolation, and symptoms that would require an ER visit. Specimen sent to [facility] documented in this encounter Plan of Treatment Not on file documented as of this encounter Procedures Procedure Name Priority Date/Time Associated Diagnosis Comments SARS-COV-2 BY MOLECULAR Routine 02/25/2020 12:04 PM CDT Cough Sore throat Close exposure to COVID-19 virus documented in this encounter Results * SARS-COV-2 BY PCR (02/25/2020 12:04 PM CDT) SARSCOV2 NOT DETECTED (Reference Range for this test is Not Detected) 02/26/2020 10:08 AM CDT [facility] Swab NASOPHARYNGEAL STRUCTURE / Unknown Non-Phlebotomy Collection / Unknown 02/25/2020 12:04 PM CDT 02/25/2020 12:04 PM CDT Narrative [facility] - 02/26/2020 10:08 AM CDT Authorized Fact Sheets about this test for providers and patients are available at: https://www.fda.gov/medical-devices/vzchvbhvf-lodfhsqwcl-quifrpe-devices/emergen -us e-authorizations us Angélica Bloom APRN, CURTAIN INSPECTOR MICROBIOLOGY - GENERA L ORDERABLES Final Result [facility] [address] [place] [address], documented in this encounter Visit Diagnoses Diagnosis Cough Sore throat Acute pharyngitis Close exposure to COVID-19 virus documented in this encounter Additional Health Concerns Infection Onset Date Last Indicated Resolved Time COVID - 19 02/25/2020 02/25/2020 02/27/2020 6:06 AM CDT documented as of this encounter Care Teams Silver Cleaner Relationship Specialty Start Date End Date Zoila Osei APRN, CURTAIN INSPECTOR PCP - General Advanced Practice Nurse 11/06/17 documented as of this encounter
--- OUTSIDE RECORDS SUMMARY | 2024-07-11 06:08 | XMS_ITS | Encounter Summary ---
Author Organization [facility] Address [address] [facility] [place] [address] Phone Care Team Providers Care Shoe Parts Caser Name Role Phone Zoila Osei APRN, CNP Primary Care Provider Reason for Visit * Reason Onset Date Comments COVID-19 03/14/2020 Encounter Details Date Type Department Care Team (Late st Contact Info) Description 03/14/2020 [facility] T[facility] Digital Contact Center [address] [place] [address] Zoila Osei APRN, BRAILLE AND TALKING BOOKS CLERK [address] [place] [address] COVID-19 Social History Tobacco Use Types Packs/Day [...] PM CDT documented as of this encounter Miscellaneous Notes * Telephone Encounter - Sherlyn Wu RN - 03/14/2020 5:58 PM CDT Images from the original note were not included. Travel Screening Question Response In the last month, have you been in contact with someone who was confirmed or suspected to have Coronavirus / COVID-19? Yes Have you had a COVID-19 viral test in the last 14 days? No Do you have any of the following new or worsening symptoms? Sore throat;Cough;Chills;Severe headache;Fatigue;Rash;Diarrhea;Loss of smell (sinus congestion) Have you traveled internationally in the last month? No Travel History Travel since 02/12/20 No documented travel since 02/12/20 COVID-19 Testing Priority for Traci Gonzalez: 1 SITUATION: Patient calling with Rash, sore throat, headache, post-nastal drip, stuffy nose, sinus congestion, cough, and chronic diarrhea. 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 Was around a friend who tested COVID positive. ASSESSMENT: Symptom Description / Location: 03/09 noticed a rash on her chest but states she's getting and assumed it was stress induced. 03/12 began to have sore throat, headache, postnasal drip, and stuffy nose (sinus congestion). Diarrhea is an intermittent/chronic issue. States she doesn't consider it new. 03/14 had chills while at work but her other coworkers were cold too. Reports smell is diminished but not totally gone. 03/13 began to have cough. States that her cough is dry/nonproductive. It's also infrequent/intermittent. States it's more from a tickle in her throat. Denies shortness of breath, difficulty breathing, adventitious lung sounds, or chest pain. Able to speak in full sentences without issues. Pain (0-10): denies at this time. Temp: afebrile. Treatment / Response: dayquil 2 tabs in the morning and nyquil 2 tabs at night; helps with symptoms. RECOMMENDATION: home care advice given to patient. appt made with tele-health provider. Caller verbalizes understanding of the above information. Sherlyn Wu RN Reason for Disposition ??? [1] COVID-19 [...] cases (community spread) where you live? (See [facility] department website, if unsure) Lives in [facility] 2. ONSET: When did the COVID-19 symptoms start? 03/09 3. WORST SYMPTOM: What is your worst symptom? (e.g., cough, fever, shortness of breath, muscle aches) Sore throat. 4. COUGH: Do you have a cough? If so, ask: How bad is the cough? States that her cough is dry/nonproductive. It's also infrequent/intermittent. States it's more from a tickle in her throat. 5. FEVER: Do you have a fever? If so, ask: What is your temperature, how was it measured, and when did it start? Afebrile 6. RESPIRATORY STATUS: Describe your breathing? (e.g., shortness of breath, wheezing, unable to speak) Denies shortness of breath, difficulty breathing, adventitious lung sounds, or chest pain. Able to speak in full sentences without issues. 7. [id number]: Are you getting better, staying the same or getting worse compared to yesterday? If getting worse, ask, In what way? Same 8. HIGH RISK DISEASE: Do you have any chronic medical problems? (e.g., asthma, heart or lung disease, weak immune system, etc.) Denies. 9. : Is there any chance you are ? When was your last menstrual period? Denies. LMP: 02/12/20 10. OTHER SYMPTOMS: Do you have any other symptoms? (e.g., chills, fatigue, headache, loss of smell or taste, muscle pain, sore throat) Rash, sore throat, headache, post-nastal drip, stuffy nose, sinus congestion, cough, and chronic diarrhea. Protocols used: CORONAVIRUS (COVID-19) DIAGNOSED OR [id number] * Telephone Encounter - Sherlyn Wu RN - 03/14/2020 5:54 PM CDT Images from the original note were not included. Travel Screening Question Response In the last month, have you been in contact with someone who was confirmed or suspected to have Coronavirus / COVID-19? Yes Have you had a COVID-19 viral test in the last 14 days? No Do you have any of the following new or worsening symptoms? Sore throat;Cough;Chills;Severe headache;Fatigue;Rash;Diarrhea;Loss of smell (sinus congestion) Have you traveled internationally in the last month? No Travel History Travel since 02/12/20 No documented travel since 02/12/20 Screening Results: COVID-19 LIKE SYMPTOMS State to Patient: Based on your answers, I recommend that you please remain on the line while I transfer you to a triage nurse who can advise you further on next steps. Did patient refuse manager country? no. Sherlyn Wu RN documented in this encounter Plan of Treatment Not on file documented as of this encounter Visit Diagnoses Not on filedocumented in this encounter Care Teams Shoe Parts Caser Relationship Specialty Start Date End Date Zoila Osei APRN, BRAILLE AND TALKING BOOKS CLERK PCP - General Advanced Practice Nurse 11/06/17 documented as of this encounter
--- OUTSIDE RECORDS SUMMARY | 2024-07-11 06:08 | XMS_ITS | Encounter Summary ---
Author Organization [employer] Care Team Providers Care Cattle Feeder Name Role Phone Provider, None Primary Care Provider Unavailabl e Encounter Details Date Type Department Care Team (Latest Contact Info) Description 07/18/2021 Travel Social History Tobacco Use Types Packs/Day [...] Coronavirus / COVID-19? Yes 07/18/2021 3:37 PM LIQUOR RUNNER documented as of this encounter Plan of Treatment Not on file documented as of this encounter Visit Diagnoses Not on filedocumented in this encounter Additional Health Concerns Infection Onset Date Last Indicated Resolved Time COVID - 19 07/18/2021 07/18/2021 08/07/2021 12:1 7 AM LIQUOR RUNNER COVID - 19 Confirmed 07/18/2021 07/18/2021 022 12:17 AM LIQUOR RUNNER documented as of this encounter Care Teams Cattle Feeder Relationship Specialty Start Date End Date Provider, None [place] PCP - General 12/28/20 documented as of this encounter
--- OUTSIDE RECORDS SUMMARY | 2024-07-11 06:08 | XMS_ITS | Clinical Summary ---
Author Organization [facility] Address [address] [address] Phone Care Team Providers Care Concierge Manager Name Role Phone Provider, None Primary Care Provider Unavailabl e Allergies No known active allergies Medications Vit-Fe Fumarate-FA ( VITAMIN PO) Take by mouth. Active Active Problems No known active problems Social History Tobacco Use Types Packs/Day Years Used Date Smoking Tobacco: Never Smokeless Tobacco: Never Tobacco Cessation:Counseling Given: Yes Alcohol Use Standard Drinks/Week Comments Yes 0 (1 standard drink = 0.6 oz pur e alcohol) Sexually Active Control Partners Comments Yes Male Comments Unknown Sex and Gender Information Value Date Recorded Sex Assigned at Not on file Legal Sex Female 8:08 PM CDT Gender Identity Not on file Sexual Orientation Not on file Last Filed Vital Signs Vital Sign Reading Time Taken Comments Blood Pressure 100/72 07/18/2021 3:50 PM AMBULANCE OFFICER Pulse 101 07/18/2021 3:50 PM AMBULANCE OFFICER Temperature 36.7 ??C (98.1 ??F) 07/18/2021 3:50 PM CS T Respiratory Rate 16 07/18/2021 3:50 PM AMBULANCE OFFICER Oxygen Saturation 98% 07/18/2021 3:50 PM AMBULANCE OFFICER Inhaled Oxygen Concentration - - Weight 54 kg (119 lb) 08/11/2020 4:05 PM AMBULANCE OFFICER Height 160 cm (5' 3 ) 08/11/2020 4:05 PM AMBULANCE OFFICER Body Mass Index 21.08 08/11/2020 4:05 PM AMBULANCE OFFICER Plan of Treatment Health Maintenance Due Date Last Done Comments Hepatitis C Virus (HCV) Screening 1993 TdaP Immunization 1993 Hepatitis B Immunization (1 of 3 - 19+ 3-dose series) 2012 Pap Smear 2014 Cervical Cancer Screening (CCS) 2023 HPV/Cotest 2023 Influenza Immunization (#1) 2024 SARS-COV-2 Immunization ( season) 2024 Respiratory Syncytial Virus (RSV) Immunization (Adult) (1 - 1-dose 75+ series) 2068 Meningococcal Immunization (ACWY) Aged Out No longer eligible based on patient's age to complete this topic Pneumococcal Immunization Combined Aged Out No longer eligible based on patient's age to complete this topic Rotavirus Immunization Aged Out No lo nger eligible based on patient's age to complete this topic Insurance [facility] Care Teams Concierge Manager Relationship Specialty Start Date End Date Provider, None [place] PCP - General 12/28/20
--- OUTSIDE RECORDS SUMMARY | 2024-07-11 06:08 | XMS_ITS | Encounter Summary ---
Author Organization [facility] Address [address] [place] [address] Phone Care Team Providers Care Cage Fighter Name Role Phone No, Physician Primary Care Provider [phone] Reason for Visit * Consultation (Routine) - Closed Specialty Diagnoses / Procedures Referred By Adelso fall Referred To Contact Surgery / Breast Surgery Diagnoses Axillary lymphadenopathy Lorie Duran NP Phone: tel: fax: [facility] (All Locations) Referral ID Status Reason Start Date Expiration Date V isits Requested Visits Authorized [id number] Closed Specialty Services Required 10/10/2020 11/09/2021 1 1 Encounter Details Date Type Department Care Team (Late st Contact Info) Description 11/08/2020 8:30 AM CDT Office Visit [facility] Surgery [address] [place] [address] [place] [address] Hallie Ward, [facility] [address] [address] Axillary adenopathy (Primary Dx) Social History Tobacco Use Types Packs/Day Years Used Date Smoking Tobacco: Never Comments Unknown Sex and Gender Information Value Date Recorded Sex Assigned at Not on file Legal Sex Female 7:22 PM CITY CONTROLLER Gender Identity Not on file Sexual Orientation [...] Mass Index 22.14 11/08/2020 8:32 AM CDT documented in this encounter Progress Notes * Hallie Ward, CABLE TESTERS HELPER - 11/08/2020 8:30 AM CDT PATIENT NAME: Traci Gonzalez DATE OF : 1995 DATE OF OFFICE VISIT: 11/08/20 REFERRING MD: Lorie Duran NP A consultation was requested by Lorie Duran NP for left axillary swell. CHIEF COMPLAINT: Traci Gonzalez is a 25 y.o. female with chief complaint of left axillary swelling. HPI: The patient is a 25 y.o. female with a several month history of axillary swelling. She states that she is now and has had more swelling noted in the axilla but realized that she had had thisswelling prior to becoming . She was seen by her telemarketing supervisor who underwent imaging which was negative. She states that the swelling lacks is and wanes. She currently states it is swollen butnot painful. Her family history is significant for a paternal aunt with breast cancer in her 50s. She notes no other change in her breast self-examination. PAST MEDICAL HISTORY: She has no past medical history on file. PAST SURGICAL HISTORY: She has no past surgical history on file. MEDICATIONS: She currently has no medications in their medication list. ALLERGIES: She has No Known Allergies. FAMILY HISTORY: Her family history includes Breast cancer in her father's sister; Cervical cancer in her mother; Lung cancer in her mother's sister. SOCIAL HISTORY: She reports that she has never smoked. She does not have any smokeless tobacco history on file. No history on file for alcohol use and drug use. I have reviewed the patients health history sheet signed and placed in the chart today. REVIEW OF SYSTEMS: GENERAL: Denies fevers, chills or malaise. She is accompanied by her SKIN: No concerning lesions or skin changes noted on face, neck or trunk. NOSE AND THROAT: Mucosal membranes intact. EYES: Extraocular movements intact. Sclerae - no jaundice. NECK; Denies neck masses, or difficulty swallowing. RESPIRATORY: Denies cough, sputum, hemoptysis, TB, pneumonia. CARDIAC: Denies chest pain, palpitations, dyspnea, orthopnea. GASTROINTESTINAL: Denies nausea, dyspepsia, vomiting, vomiting of blood, rectal bleeding or black/tarry stools. URINARY: Denies polyuria, dysuria, nocturia, infections. VASCULAR: Denies intermittent claudication, leg cramps, thrombophlebitis. Denies DVT, PE. MUSCULOSKELETAL: No evidence of rib, long bone or spine pain. NEUROLOGIC: Denies recent fainting, blackouts, seizures, paralysis, tremors, stroke. HEMATOLOGIC: Denies easy bruising or bleeding, past transfusion reactions. PHYSICAL EXAMINATION: General: Well-developed, well-nourished who is in no apparent distress. Eyes: PERRLA, EOM intact. HEENT: NC/AT, sclerae anicteric. Neck: Supple, without thyromegaly or adenopathy. Respiratory: No shortness of breath noted. Cardiovascular: Regular rate and rhythm. Gastrointestinal: Soft, nontender, nondistended, without obvious masses. Extremities: No edema or cyanosis. Musculoskeletal: Normal range of motion. Neurological examination: Alert and oriented x 3, otherwise grossly nonfocal. Skin/Soft Tissue: No appreciable cervical, supraclavicular, axillary, or inguinal adenopathy. Breast: Examination of the breasts in the upright and supine positions reveal she has no mass, skinchanges, nipple changes, nipple discharge in either breast. The left axilla does have some slightlyenlarged lymph nodes which were marked. The right axilla is negative. LABORATORY: None RADIOLOGY: I personally reviewed her left axillary ultrasound performed today which demonstrated: HISTORY: 25-year-old female at 26 weeks gestation presenting with waxing and waning swelling and tenderness in the left axilla for the past 7 months. ?? COMPARISON: None available ?? TECHNIQUE: Directed ultrasound evaluation of the LEFT axilla was performed. ?? ULTRASOUND FINDINGS: Targeted ultrasound of the left axilla in the area of concern demonstrates no sonographic abnormality. There is no mass, fluid collection, or lymphadenopathy. ? IMPRESSION: ?? 1. Normal ultrasound of the left axilla. ? OVERALL FINAL ASSESSMENT: BI-RADS Category 1: Negative. PATHOLOGY: None IMPRESSION: Patient with negative imaging. PLAN: Had a long discussion with the patient and her related to her left axillary swelling. This seems most consistent with reactive lymph nodes. She is going to continue monitoring the area and use [id number] medication for any discomfort. She will follow-up as needed. Hallie Ward, MSN, SPINNER CAP FRAME- Endocrine and Oncology Surgery I have reviewed the history, physical, clinical exam, social and surgical history and I concur withthe findings. Vriginia Yang M.D. legal support analyst Endocrine Oncology Surgery Cosigned by Virginia Yang MD PhD at 11/08/2020 11:46 AM CDT documented in this encounter Plan of Treatment Scheduled Referrals Name Type Priority Associated Diagnoses Orde r Schedule Ambulatory referral to Breast Surgery Outpatient Referral Routine Axillary lymphadenopathy Ordered: 10/10/2020 documented as of this encounter Visit Diagnoses Diagnosis Axillary adenopathy- Primary Enlargement of lymph nodes documented in this encounter Care Teams Cage Fighter Relationship Specialty Start Date End Date No, Physician PCP - General 10/10/20 documented as of this encounter
--- OUTSIDE RECORDS SUMMARY | 2024-07-11 06:08 | XMS_ITS | Encounter Summary ---
Author Organization [facility] Address [address] [place] [address] Phone Care Team Providers Care Animal Husbandry Worker Name Role Phone Zoila Osei APRN, CNP Primary Care Provider Reason for Referral * Radiology Services (Routine) - Closed Specialty Diagnoses / Procedures Referred By Contac t Referred To Contact Radiology Diagnoses Left axillary pain Procedures US LEFT EXTREMITY NON-VASC LTD US SOFT TISSUE UNLISTED PROCEDURE Rosalba Ralph APRN, CNP [address] [place] [address] Phone: tel: fax: Referral ID Status Reason Start Date Expiration Date Visits Re quested Visits Authorized [id number] Closed 08/11/2020 1 1 ET GARDENER Reason for Visit * Radiology Services (Routine) - Closed Specialty Diagnoses / Procedures Referred By Contac t Referred To Contact Radiology Diagnoses Left axillary pain Procedures US LEFT EXTREMITY NON-VASC LTD US SOFT TISSUE UNLISTED PROCEDURE Rosalba Ralph APRN, CNP [address] [place] [address] Phone: tel: fax: Referral ID Status Reason Start Date Expiration Date Visits Re quested Visits Authorized [id number] Closed 08/11/2020 1 1 Encounter Details Date Type Department Care Team (Latest Contact Info) Description 08/18/2020 6:55 AM MARKET GARDENER - 08/18/2020 11:59 PM MARKET GARDENER Hospital Encounter [facility] Ultrasound [address] [place] [address] Rosalba Ralph APRN, SALES PROPERTY MANAGER [address] [place] [address] Discharge Disposition: Discharged to home or Selfcare [...] COVID-19? No / Unsure 08/18/2020 6:30 AM MARKET GARDENER documented as of this encounter Medications at Time of Discharge Vit-Fe Fumarate-FA ( VITAMIN PO) Take by mouth. documented as of this encounter Progress Notes * Iglesia Hurtado PAC - 08/18/2020 7:00 AM CST Please call patient to let them know that results of ultrasound were normal, no mass or fluid collection. If pain persists or worsens schedule f/u appt with PCP. ET GARDENER documented in this encounter Plan of Treatment Not on file documented as of this encounter Procedures Procedure Name Priority Date/Time Associated Diagnosis Comments US LEFT EXTREMITY NON-VASC LTD Routine 08/18/2020 7:07 AM MARKET GARDENER Left axillary pain documented in this encounter Results * US LEFT EXTREMITY NON-VASC LTD (08/18/2020 7:07 AM MARKET GARDENER) Anatomical Region Laterality Modality BODY Left Ultrasound 08/20/2020 7:42 AM MARKET GARDENER Impressions 08/20/2020 7:45 AM MARKET GARDENER IMPRESSION: ?? No significant abnormality identified. ??No mass or fluid collection Narrative 08/20/2020 7:45 AM MARKET GARDENER EXAM DESCRIPTION: ?? US LEFT EXTREMITY NON-VASC [...] AM T: ??08/20/2020 7:42 AM Report ID: [id number] Reading Location: ??[id number] Procedure Note Marko Mejia MD - 08/20/2020 EXAM DESCRIPTION: US LEFT EXTREMITY NON-VASC LTD REASON FOR STUDY: Upper arm pain for a few months TECHNIQUE: Targeted sonogram of the left axilla performed COMPARISON: None FINDINGS: No mass fluid collection or foreign body THIS IS AN ELECTRONICALLY VERIFIED FINAL REPORT 08/20/2020 7:42 AM - Electronically signed by Marko Mejia M.D. NC: NC Report ID: [id number] Reading Location: [id number] IMPRESSION: No significant abnormality identified. No mass or fluid collection Rosalba Ralph APRN, CNP IMShavonne US ORDERABL ES Final Result documented in this encounter Visit Diagnoses Diagnosis Left axillary pain Pain in limb documented in this encounter Care Teams Animal Husbandry Worker Relationship Specialty Start Date End Date Zoila Osei APRN, CNP PCP - General Advanced Practice Nurse 11/06/17 documented as of this encounter
--- OUTSIDE RECORDS SUMMARY | 2024-07-11 06:08 | XMS_ITS | Encounter Summary ---
Author Organization [facility] Address [address] [place] [address] Phone Care Team Providers Care Vaccines Solutions Specialist Name Role Phone Zoila Osei APRN, CNP Primary Care Provider Reason for Visit * Reason Comments COVID-19 Encounter Details Date Type Department Care Team ([facility] Contact Info) Description 03/14/2020 6:45 PM CDT Telemedicine [facility] Digital Contact Center [address] [place] [address] Toni Stark APRN, FORESTRY HUNTER [address] [place] [address] Rash in adult (Primary Dx); Sore throat; Nonintractable headache, unspecified chronicity pattern, [...] of this encounter Progress Notes * Toni Stark, AND TAXI INSTRUCTOR BUS TROLLEY, FORESTRY HUNTER - 03/14/2020 6:45 PM CDT Images from the original note were not included. [facility] SUBJECTIVE Chief Complaint Patient presents with ??? COVID-19 Patient is a 26 yo who was with a friend this weekend who tested positive for COVIID> Patient isreporting COUGH, sore throat, headache, nasal congestion and rhinorrhea. She denies SOB, Chest painor difficulty breathing. No brusing or body aches. No Known Allergies No past medical history [...] every 8 hours as needed for Nausea. (Patient not taking: Reported on 03/14/2020) 10 Tab 0 No current facility-administered medications on file prior to visit. There is no problem list on file for this patient. Review of Systems Constitutional: Positive for fatigue. HENT: Positive for congestion, rhinorrhea and sore throat. Respiratory: Positive for cough. Musculoskeletal: Positive for arthralgias. Neurological: Positive for headaches. Chief complaint and all history documented by [...] to ED immediatelyfor severe symptoms. - If asymptomatic and had close contact with COVID-19 positive individual(s): quarantine at home for 14 days for symptom monitoring. - If symptomatic or symptoms develop within [...] sick leave, or to return to work. [facility] is not providing excuse for work notes or return to work notes at this time per CDC recommendations. Caller verbalizes understanding of the above information. Recommended disposition of Home self-care supported by the above documentation. Patient agreed withdisposition. Diagnoses and all orders for this visit: Rash in adult - SARS-COV-2 BY PCR; Future Sore throat - SARS-COV-2 BY PCR; Future Nonintractable headache, unspecified chronicity pattern, unspecified headache type - SARS-COV-2 BY PCR; Future Nasal congestion - SARS-COV-2 BY PCR; Future Post-nasal drip - SARS-COV-2 BY PCR; Future Diarrhea, unspecified type - SARS-COV-2 BY PCR; Future Patient was assessed via telephone for a duration of 0-15 minutes. Patient verbally consented for this service to be performed. - Toni Stark APN, CNS documented in this encounter Plan of Treatment Not on file documented as of this encounter Results * SARS-COV-2 BY PCR (03/15/2020 7:35 AM CDT) SARSCOV2 NOT DETECTED (Reference Range for this test is Not Detected) 03/16/2020 11:53 AM CDT [facility] Swab NASOPHARYNGEAL STRUCTURE / Unknown Non-Phlebotomy Collection / Unknown 03/15/2020 7:35 AM CDT 03/15/2020 7:35 AM CDT Narrative [facility] - 03/16/2020 11:53 AM CDT Authorized Fact Sheets about this test for providers and patients are available at: https://www.fda.gov/medical-devices/rctxvusaj-wsraclkrmq-ekbdygj-devices/emergen -us e-authorizations us Toni Stark APRN, FORESTRY HUNTER MICROBIOLOGY - GENERAL O RDERABLES Final Result [facility] [address] [place] [address], documented in this encounter Visit Diagnoses Diagnosis Rash in adult- Primary Sore throat Acute pharyngitis Nonintractable headache, unspecified chronicity pattern, unspecified headache type Nasal congestion Other diseases of nasal cavity and sinuses Post-nasal drip Postnasal drip Diarrhea, unspecified type documented in this encounter Additional Health Concerns Infection Onset Date Last Indicated Resolved Time COVID - 19 03/14/2020 03/15/2020 03/18/2020 4:34 PM CDT documented as of this encounter Care Teams Vaccines Solutions Specialist Relationship Specialty Start Date End Date Zoila Oesi APRN, COMMUNITY HEALTH WORKER PCP - General Advanced Practice Nurse 11/06/17 documented as of this encounter
--- OUTSIDE RECORDS SUMMARY | 2024-07-11 06:08 | XMS_ITS | Referral Summary ---
Author Organization [facility] Address [address] [place] [address] Care Team Providers Care Guest Service Supervisor Name Role Phone Unavailable Primary Care Provider Unavailabl e Source Comments [facility],non-owned Affiliates and Associated Physician Practices is amultiple site organization consisting of ambulatory clinics and hospital sitesin [place], [place], [place] and [place]. This disclosure is being madepursuant to the Care Everywhere program and may not contain all information available regarding this patient. Last updated 18.[facility] Allergies No known active allergies Medications Be [...] 12/18/2017 9:31 AM CDT Plan of Treatment Not on file TRACI CORRALES Personal/Family [address] [place] [id number] Traci Campoverde Personal/Family Self [address] [place] [address] Traci Campoverde Personal/Family Self [address] [place] [id number]
== END 2024-07-04 08:30 | disposition home or self-care (01) ==
PROVIDERS: Emergency Provider Nurse Practitioner Family
DX: J02.9 Acute pharyngitis, unspecified (principal); J06.9 Acute upper respiratory infection, unspecified
CPT/HCPCS: 87081; 87880; 99213; G0463

== ENCOUNTER 2024-08-12 08:28 | Emergency (ER) | payer BC, SELFPAY ==
[2024-08-12 08:32] VITALS: BP 106/59; PULSE 110; RESP 20; TEMP 37.7; O2SAT 99
--- NOTE | 2024-08-12 08:37 | ED_ITS ---
HPI - URI/Sore Throat General Chief Complaint: Upper Respiratory Infection Stated Complaint: cough/throat/head/body aches Source: patient and RN notes reviewed Mode of arrival: ambulatory Limitations: no limitations History of Present Illness HPI Narrative: 29 y/o female presented for c/o sore throat and mild cough yesterday. Woke this morning with worse cough and mild nasal congestion, headache, body aches. Took robitussin last night. Endorses exposure to flu at work. Denies sob, wheezing, n/v/d. MD elicited complaint: cough Related Data Home Medications ?Medication ?Instructions ?Recorded ?Confirmed ?Last Taken ?Type No Home Medications 08/12/24 08/12/24 Unknown History Allergies Allergy/AdvReac Type Severity Reaction Status Date / Time No Known Allergies Allergy Verified 08/12/24 08:48 Review of Systems Review of Systems: per [facility] Past Medical History Medical History No pertinent past medical history Surgical History Surgical History No pertinent past surgical history Family History Family History Other No pertinent family history Social History Social History Smoking status: Never smoker Second hand tobacco smoke exposure: No Substance use: never Lack of Transportation: No Lack of Food: Never True Current Housing: I Have Housing Concerned About Future Housing: No Difficulty Paying Gas/Electric Bills: No Difficulty Paying for Meds: No Currently Unemployed: No Education: Trade/Vocational Certificate Difficulty w/ Childcare or Family Care: No Gender identity (if verbalized by the patient): Female Spiritual care concerns: No Exam Narrative: GENERAL: well-appearing, nontoxic EYES: PERRLA, conjunctivae clear ENT: Mucous membranes moist. TM pearly olson with dull light reflex bilaterally; no tragal tenderness. Oropharynx erythematous without lesions or exudate, no drooling, no hoarseness, no trismus, uvula midline. No tripod positioning, muffled voice, soft palate or pharyngeal wall bulging NECK: Supple. No lymphadenopathy CHEST: Clear to auscultation, breath sounds equal. No wheezing, rhonchi, rales, or stridor. No respiratory distress, speaks in full sentences. HEART: Regular rate and rhythm. No murmur heard. SKIN: Warm, dry NEURO: Alert and oriented x3. PSYCH: Normal mood and affect Course Course Emergency Course: Patient is aware of diagnosis, understands and agrees to treatment plan. Anticipatory guidance given. Patient agrees to follow-up as directed and is aware of reasons to seek care at the emergency department. Portions of this record may have been created with voice recognition software Level of Care: Express Care Visit Vital Signs Vital signs: Vital Signs Temperature 99.9 F H 08/12/24 08:32 Pulse Rate 110 H 08/12/24 08:32 Respiratory Rate 20 08/12/24 08:32 Blood Pressure 106/59 L 08/12/24 08:32 Pulse Oximetry 99 08/12/24 08:32 Temperature 99.9 F H 08/12/24 08:32 Pulse Rate 110 H 08/12/24 08:32 Respiratory Rate 20 08/12/24 08:32 Blood Pressure 106/59 L 08/12/24 08:32 Pulse Oximetry 99 08/12/24 08:32 reviewed MDM - URI/Sore Throat MDM Narrative Medical decision making narrative: Discussed physical exam findings and test results. Declined strep test. Advised supportive measures and signs/symptoms to go to the ER. Pt is appropriate for outpt treatment and f/u. Differential Diagnosis Differential diagnosis: Likely upper respiratory infection, sinusitis, viral infection, bronchitis, influenza and pharyngitis Discharge Plan Discharge Clinical Impression: Viral infection Patient Disposition: Home, Self-Care Condition: Stable Instructions: Influenza (ED) Additional Instructions: Your rapid covid and flu tests were negative today. It may be too early to detect the virus, therefore we recommend retesting at home in 1-2 days Continue to follow general precautions: frequent handwashing, wear a mask, isolate/social distance, and avoid crowds if you have a fever. You must be fever free for 24 hours without the use of fever reducing medication (Tylenol/ibuprofen) before returning to work/school/crowds. Recommendations: Flonase spray and Zyrtec (or Claritin/Wendy) over the counter Cough syrup may cause drowsiness; avoid driving or take it at night time. Tylenol 1000mg every 8 hours as needed for pain Symptomatic treatment includes: rest, fluids, and increase humidity of the air at home. Follow up with your primary care provider Go to the ER for worsening symptoms or concerns. Patient Language: Wallisian Prescriptions: No Action No Home Medications Follow-up/Referrals: PHYSICIAN,AQUARIUM TANK ATTENDANT [Primary Care Provider] - Stand Alone Forms: Work/School Release IP Time of Disposition: 08:57
--- OUTSIDE RECORDS SUMMARY | 2024-08-12 08:42 | XMS_ITS | Clinical Summary ---
Author Organization [facility] Address [address] [address] Phone Care Team Providers Care Depalletizer Operator Name Role Phone Provider, None Primary Care [...] Comments Blood Pressure 100/72 07/18/2021 3:50 PM UNHAIRER Pulse 101 07/18/2021 3:50 PM UNHAIRER Temperature 36.7 ??C (98.1 ??F) 07/18/2021 3:50 PM CS T Respiratory Rate 16 07/18/2021 3:50 PM UNHAIRER Oxygen Saturation 98% 07/18/2021 3:50 PM UNHAIRER Inhaled Oxygen Concentration - - Weight 54 kg (119 lb) 08/11/2020 4:05 PM UNHAIRER Height 160 cm (5' 3 ) 08/11/2020 4:05 PM UNHAIRER Body Mass Index 21.08 08/11/2020 4:05 PM UNHAIRER Plan of Treatment Health Maintenance Due Date [...] patient's age to complete this topic Insurance [facility] Care Teams Depalletizer Operator Relationship Specialty Start Date End Date Provider, None [place] PCP - General 12/28/20
--- OUTSIDE RECORDS SUMMARY | 2024-08-12 08:42 | XMS_ITS | Referral Summary ---
Author Organization [facility] Address [address] [facility] [place] [address] Care Team Providers Care Welfare Adviser Name Role Phone Unavailable Primary Care Provider Unavailabl e Source Comments [facility],non-owned Affiliates and Associated Physician Practices is amultiple site organization consisting of ambulatory clinics and hospital sitesin [place], [place], [place] and [place]. This disclosure is being madepursuant to the Care Everywhere program and may not contain all information available regarding this patient. Last updated 18.[facility] Allergies No known active allergies Medications Be [...] Not on file TRACI CORRALES Personal/Family [address] [place] [phone] Traci Campoverde Personal/Family Self [address] [place] [id number] Traci Campoverde Personal/Family Self [address] [place] [id number]
--- OUTSIDE RECORDS SUMMARY | 2024-08-12 08:42 | XMS_ITS | Referral Summary ---
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
--- OUTSIDE RECORDS SUMMARY | 2024-08-12 08:42 | XMS_ITS | Clinical Summary ---
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
--- OUTSIDE RECORDS SUMMARY | 2024-08-12 08:42 | XMS_ITS | Patient Health Summary ---
Author Organization [facility] Address [address] [place] [address] Care Team Providers Care Auto Parts Handler Name Role Phone Unavailable Primary Care Provider Unavailabl e Note from [facility],non-owned Affiliates and Associated Physician Practices is amultiple site organization consisting of ambulatory clinics and hospital sitesin [place], [place], [place] and [place]. This disclosure is being madepursuant to the Care Everywhere program and may not contain all information available regarding this patient. Last updated 18.[facility] Allergies No known active allergies Medications Be [...] Strep A Internal Control Present Lot # [id number] Expiration Date 06/19/19 Throat ENTIRE THROAT (SURFACE REGION OF NECK) / Unknown 12/18/2017 Genesis Gonzalez MAINTENANCE MECHANIC 2ND [employer] EXECUTIVE [facility] - POINT OF [place] RE ORDERABLES
--- OUTSIDE RECORDS SUMMARY | 2024-08-12 08:42 | XMS_ITS | Clinical Summary ---
Author Organization [facility] Address [address] [facility] [place] [address] Care Team Providers Care Medical Payment Poster Name Role Phone Unavailable Primary Care Provider Unavailabl e Source Comments [facility],non-owned Affiliates and Associated Physician Practices is amultiple site organization consisting of ambulatory clinics and hospital sitesin [place], [place], [place] and [place]. This disclosure is being madepursuant to the Care Everywhere program and may not contain all information available regarding this patient. Last updated 18.[facility] Allergies No known active allergies Medications Be [...] of 3 - 19+ 3-dose series) 2012 COVID-19 VACCINE (1 - 2023-2 5 season) 2024 INFLUENZA VACCINE (#1) 2024 DEPRESSION SCREENING 07/14/2024 ZOSTER VACCINE (1 of 2) 2043 HIB VACCINE Aged Out No longer eligi ble based on patient's age to complete this topic HPV VACCINE Aged Out No longer eligi ble based on patient's age to complete this topic MENINGOCOCCAL (Group B) VACCINE Aged Out No longer eligible based on patient's age to complete this topic MENINGOCOCCAL VACCINE Aged Out No maikel katie eligible based on patient's age to complete this topic PNEUMOCOCCAL VACCINE Aged Out No long er eligible based on patient's age to complete this topic MISTIMANUELTRACI Personal/Family [address] [place] [id number] Campoverde Traci L Personal/Family Self [address] [place] [id number] Campoverde Traci L Personal/Family Self [address] [place] [id number]
--- OUTSIDE RECORDS SUMMARY | 2024-08-12 08:43 | XMS_ITS | Data Portability ---
Author Organization [facility] [place] Address [address] [place] [address] [place] [address] Assessment Encounter Date Assessment Date Assessment LastModified by Organization Details LastModified Time 04/25/2023 04/25/2023 Patient is _30__weeks . Discussed plan. Not available 04/25/2023 16:24:13 05/09/2023 05/09/2023 Patient is __32_weeks . Discussed plan. [email or web address] Not available 05/09/2023 12:00:16 05/21/2023 05/21/2023 Patient [...] pauly, follow -up 023 05/09/20 23 [email or web address] [place], [address], [place], [address], 05/09/2023 21:55:49 Medication Orders None record ed. Patient TargetsNo targets recorded. Patient InstructionsNo instructions recorded. Reason for Referral None Reported. Results Created Date Observation Date Name Description Value Unit Range Abnormal Flag Note LastModifiedBy Organization Detail LastModifiedTime 04/11/20 23 04/11/2023 HEMAT OCRIT (HCT) HCT 30.7 % (based on docume nted legal sex) 37.4-4 8.3 low Not Available [facility] (Lab) [address], [place], [address], 04/12/2023 07:26:50 04/11/20 23 04/11/2023 HEMOG LOBIN (HGB) HGB 10.0 g/dL (based on docume nted legal sex) 11.9-1 5.8 low Not Available [facility] (Lab) [address], [place], [address], 04/12/2023 07:26:51 04/11/20 23 04/11/2023 GTT - GESTA LETTY L SCREE N, ACOG OB glucose, 1 hour screen 94 mg/dL 70-139 Not Available [facility] (Lab) [address], [place], [address], 04/12/2023 07:26:51 04/11/2004/11/2023 HIV 1/2 ANTIG EN/AN TIBOD Y, REFLE X CONFI RMATI ON HIV antigen/anti body Nonrea ctive nonrea ctive HIV-1 antig en and HIV-1 /HIV- 2 antib odies were not detec abdiaziz. No labor atory evide nce of HIV infec tion. Not Available [facility] (Lab) [address], [place], [address], 04/12/2023 07:26:51 04/11/2004/11/2023 US, obste tric, follo w-up No observ ation record ed. [facility] [address], [place], [address], 04/11/2023 16:41:00 04/11/2004/11/2023 US, obste tric, follo w-up No observ ation record ed. [email or web address] [address], [place], [address], 04/14/2023 10:39:05 05/09/2005/09/2023 US, obste tric, follo w-up No observ ation record ed. IOANA [place] [address], [place], [address], 05/12/2023 10:20:22 05/09/20 23 05/09/2023 US, obste tric, follo w-up No observ ation record ed. [facility] [address], [place], [address], 05/09/2023 18:03:25 05/30/2005/29/2023 US, obste tric, follo w-up No observ ation record ed. [address] [facility], [place], [address], 05/30/2023 10:48:13 05/30/2005/29/2023 US, obste tric, follo w-up No observ ation record ed. [address] [facility], [place], [address], 05/30/2023 10:50:49 Result Notes None recorded. Problems Name Problem SNOMED Code Status Onset Date Resolution Date Notes Provider Name and Address Organization Details Recorded Time 49536106 Completed 201902/19/2021 Jerry Jasso [facility], [facility] 3 13:53:08 Uterine size for dates discrepancy 969510902 Completed S< Aury Eric ehl null, [facility] 1 15:02:33 [id number] Completed 202206/19/2023 Jerry Jasso [facility], [facility] 3 13:53:07 Problem Notes None recorded. Procedures Surgical History Date Name Laterality Status Provider Name and Address Organization Details Recorded Time 11/29/2022 Date of Last Pap Smear completed Susan Davis [facility] 11/29/2022 16:37:08 Imaging Results Imaging Date Name Status LastModified by Organiz ation Details LastModified Time 04/11/2023 US, obstetric, follow-up completed [place] [address], [place], [address], 04/11/2023 16:41:00 04/11/2023 US, obstetric, follow-up completed [email or web address] [address], [place], [address], 04/14/2023 10:39:05 05/09/2023 US, obstetric, follow-up completed IOANA [place], [place], [address], 05/12/2023 10:20:22 05/09/2023 US, obstetric, follow-up completed [facility] [address], [place], [address], 05/09/2023 18:03:25 05/29/2023 US, obstetric, follow-up completed [address], [address], 05/30/2023 10:48:13 05/29/2023 US, obstetric, follow-up completed [address], [address], 05/30/2023 10:50:49 Procedure Notes None recorded. Medical [...] Updated DateTime 04/25/2023 160.02 cm 23.2 kg/m2 20943.60 047 g 98 mm[Hg] 67 mm[Hg] Susan Davis [facility] 3 15:30:55 Date Recorded Body height Body mass index (BMI) Body weight Systolic blood pressure Diastolic blood pressure Provider Name and Address Organization Details Last Updated DateTime 05/09/2023 160.02 cm 23.4 kg/m2 98587.91 1314 g 106 mm[Hg] 71 mm[Hg] Laura Garcia [facility] 3 11:58:00 Date Recorded Body height Body mass index (BMI) Body weight Systolic blood pressure Diastolic blood pressure Provider Name and Address Organization Details Last Updated DateTime 05/21/2023 160.02 cm 23.9 kg/m2 37141.96 995 g 95 mm[Hg] 66 mm[Hg] Susan Davis [facility] 3 16:23:34 Date Recorded Body height Body mass index (BMI) Body weight Systolic blood pressure Diastolic blood pressure Provider Name and Address Organization Details Last Updated DateTime 07/04/2023 160.02 cm 20.5 kg/m2 66406.71 g 133 mm[Hg] 91 mm[Hg] Susan Davis [facility] 3 16:51:50 Social History Question Answer Notes LastModified by Organizat ion Details LastModified Time Tobacco Smoking Status Never Smoker Susan Davis [facility], [facility] 07/04/2023 17:04:29 Do You Have An Advance Directive? No [email or web address] Information not available 07/04/2023 What Is Your Level Of Alcohol Consumption? Occasional [email or web address] Information not available 07/04/2023 If You Are , What Was Your Level Of Alcohol Consumption Prior To ? Occasional [email or web address] Information not available 07/04/2023 Are You Blind Or Do You Have Difficulty Seeing? No [email or web address] Information not available 07/04/2023 What Is Your Level Of Caffeine Consumption? Occasional [email or web address] Information not available 07/04/2023 In The 14 Days Before Symptom Onset, Have You Had Close Contact With A Laboratory-confir med COVID-19 While That Case Was Ill? No [email or web address] Information not available 07/04/2023 In The 14 Days Before Symptom Onset, Have You Had Close Contact With A Person Who Is Under Investigation For COVID-19 While That Person Was Ill? No [email or web address] Information not available 07/04/2023 Have You Been To An Area Known To Be High Risk For COVID-19? No Information not available 07/04/2023 Are You Currently Employed? Yes [email or web address] Information not available 07/04/2023 Are You Deaf Or Do You Have Serious Difficulty Hearing? No [email or web address] Information not available 07/04/2023 What Type Of Diet Are You Following? REGULAR [email or web address] Information not available 07/04/2023 What Is The Highest Grade Or Level Of School You Have Completed Or The Highest Degree You Have Received? 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 Yes [email or web address] Information not available 07/04/2023 Have You Ever Been Counseled For Unhealthy Alcohol Use? No [email or web address] Information not available 07/04/2023 Do You Use Protection During Sex? No [email or web address] Information not available 07/04/2023 Do You Use Your Seat Belt Or Car Seat Routinely? Yes [email or web address] Information not available 07/04/2023 Do You Have Smoke And Carbon Monoxide Detectors In Your Home? Yes Information not available 07/04/2023 How Much Tobacco Do You Smoke? No [email or web address] Information not available 07/04/2023 Do You Feel Stressed (tense, Restless, Nervous, Or Anxious, Or Unable To Sleep At Night)? [id number] [email or web address] Information not available 07/04/2023 Do You Use Any Illicit Or Recreational Drugs? No [email or web address] Information not available 07/04/2023 Do You Use Sunscreen Routinely? Yes [email or web address] Information not available 07/04/2023 Has Tobacco Cessation Counseling Been Provided? No [email or web address] Information not available 07/04/2023 Have You Used IV Drugs? No Information not available 07/04/2023 Do You Or Have You Ever Used Any Other Forms Of Tobacco Or Nicotine? No [email or web address] Information not available 07/04/2023 Sex: Unknown Functional Status Question Answer Note LastModified by Organizat ion Details LastModified Time Do you have difficulty walking or climbing stairs? No [email or web address] Information not available 07/04/2023 Are you able to walk? YESWOREST [email or web address] Information not available 07/04/2023 Are you able to care for yourself? Yes [email or web address] Information not available 07/04/2023 Do you have difficulty dressing or bathing? No [email or web address] Information not available 07/04/2023 What is your exercise level? Moderate [email or web address] Information not available 07/04/2023 Mental Status None recorded. Family History Relationship Description Onset Age of this Age Resolved Age Notes LastModified by Organization Details LastModified Time Maternal Aunt Malignant tumor of breast Not available 01/17 16:20:07 Maternal Aunt Malignant tumor of colon [email or web address] Not available 01/17 16:20:07 Mother Malignant tumor of cervix [email or web address] Not available 01/17 16:20:07 Mother Hypertensive disorder [email or web address] Not available 01/17 16:20:08 Maternal Grandmother Diabetes mellitus [email or web address] Not available 01/17 16:20:08 Maternal Grandmother Hypercholest erolemia [email or web address] Not available 01/17 16:20:08 Maternal Grandmother Hypertensive disorder Not available 01/17 16:20:08 Medical History Condition Response Allergies (Food, seasonal, environmental ) N Other N Drug/Latex Allergies/Reactions N Blood Transfusion N Breast Cancer N Dermatologic Disorders N Lung Disease N Defects or Inherited Disease N Breast Problem N Gestational Diabetes N Hematologic disorders N Anesthesia Complications N History of STI N Deep Vein Thrombosis N Polycystic ovary syndrome N Anxiety Disorder N Autoimmune disease N Arthritis N Polyps N Infertility N Acid Reflux (GERD) N History of abnormal pap N Cancer N Varicosities N Stroke N Neurologic/Epilepsy N Endometriosis N High Cholesterol N Fibromyalgia N Headaches N Kidney Disease N Heart Problems N Thyroid Problems N Kidney or Bladder Problems N GI Problems N Eating Disorder [...] Diagnosis/Indication Diagnosis SNOMED-CT Code Diagnosis ICD10 Code Diagnosis Note [id number] Nanci Yu [place] [address] [address] 07/11/2020 09:34:04 07/11/2020 11:21:54 Gynecologic examination 20767463 Z01.419 test positive 866984450 Z32.01 Risk factors addressed: Tobacco Cessation, Safe Sexual Practices, environmen anai, work hazards, travel restrictio ns, seat belt use.Eat a health well balanced diet, avoid alcohol, tobacco, and street drugs. Engage in daily low impact exercise, avoid temperatur e extremes, and cat, rodent, and bird feces.Avoi d travel to areas where zika virus is a concern. First look accepted by patient and will be scheduled along with NIPT. Pt also agrees to CF/SMA testing. Sequential Screen handout given and discussed with patient. ildbirth classes recommende d.New OB sheet given. If previous , counseling .Pt verbalizes that she understand s the importance of above instructio ns.All questions were answered. Patient reminded to have annual well woman examinatio n and address the [facility] . [id number] Jerry Jesusizzle [place] [address] [address] 07/11/2020 09:35:19 07/12/2020 08:53:46 [id number] Hunter Pollock MD [place] [address] [address] 08/10/2020 16:31:27 08/14/2020 10:56:53 Routine care 595805933 Z34.01 [id number] [facility] [address] [address] 08/10/2020 16:32:24 08/10/2020 17:37:29 screening 388677956 Z36.82 [id number] Lorie Duran [facility] [address] [address] 09/08/2020 10:57:00 09/08/2020 11:27:33 Routine care 765212412 Z34.92 Axillary lymphadenopathy 917138159 R59.0 60659 [facility] [address] [address] 09/08/2020 10:57:00 09/08/2020 11:27:33 [id number] Lorie Duran [facility] [address] [address] 10/06/2020 11:57:59 10/06/2020 14:05:35 Routine care 007528434 Z34.92 [id number] [facility] [address] [address] 10/06/2020 11:57:29 10/06/2020 12:50:36 screening for malformation 935519394 Z36.3 [id number] Lorie Duran [facility] [address] [address] 11/02/2020 11:19:35 11/02/2020 14:33:49 Routine care 329375587 Z34.92 [id number] Lo Bose [place] [address] [address] 11/02/2020 11:19:05 11/02/2020 12:16:13 Low lying placenta 089237819 O44.40 Z3A.24 90881 [facility] [address] [address] 12/01/2020 13:24:59 12/01/2020 14:46:07 Routine care 171114071 Z34.92 [id number] [facility] [address] [address] 12/01/2020 13:24:29 12/01/2020 14:33:18 Uterine size for dates discrepancy 878937705 O26.843 Z3A.28 [id number] Nanci Simmonsraine [place] [address] [address] 12/14/2020 10:24:28 12/14/2020 11:48:35 Routine care 368747537 Z34.93 [id number] Carol Engel MD [place] [address] [address] 12/29/2020 12:28:00 12/29/2020 12:45:55 Uterine size for dates discrepancy 615285910 O26.849 Routine an tenatal care 856054218 Z34.03 [id number] [facility] [address] [address] 01/11/2021 12:20:47 01/11/2021 12:57:49 Small for gestational age fetus 557135563 O36.5930 Z3A.34 85833 [facility] [address] [address] 01/12/2021 10:31:00 01/12/2021 13:23:44 Routine care 965923952 Z34.92 12341 Lorie Duran CNM [place] [address] [address] 01/19/2021 12:18:56 01/19/2021 12:59:14 Routine care 874708544 Z34.92 [id number] Lorie Duran [facility] [address] [address] 01/26/2021 10:11:28 01/26/2021 10:50:19 Routine care 031791784 Z34.92 08721 [facility] [address] [address] 02/02/2021 10:05:46 02/02/2021 10:37:36 Routine care 520776910 Z34.92 [id number] Lorie Duran [facility] [address] [address] 02/09/2021 10:09:13 02/09/2021 10:39:29 Routine care 245317717 Z34.92 [id number] [facility] [address] [address] 02/08/2021 12:12:51 02/08/2021 13:28:36 Uterine size for dates discrepancy 420828701 O26.843 Z3A.38 [id number] Lorie Duran [facility] [address] [address] 03/21/2021 10:39:44 03/21/2021 12:36:30 care 388765870 Z39.2 [id number] Rosa Henry [place] [address] [address] 11/07/2022 16:59:14 11/07/2022 17:23:42 Uncertain viability of 697782083 O36.80X0 Z3A.01 [id number] [facility] [address] [address] 11/29/2022 15:55:15 11/29/2022 16:11:33 [id number] [facility] [address] [address] 11/29/2022 15:55:43 12/02/2022 16:26:09 Amenorrhea 11470792 N91.2 reviewed office, precaution s and folder, ok to call if needs doppler or quick look on usreviewed us, small subchorion ic hemf/u new ob and first look in 3 weeks with panel and NIPS Gynecologi c examination 47109841 Z11.3 [id number] Rosa Henry [place] [address] [address] 12/20/2022 11:27:42 12/20/2022 13:42:21 screening 724895951 Z36.82 [id number] Lorie Duran [facility] [address] [address] 12/20/2022 11:28:19 12/20/2022 12:49:13 Routine care 586703368 Z34.92 [id number] Lorie Duran [facility] [address] [address] 01/17/2023 16:07:21 01/20/2023 10:56:55 Routine care 767026193 Z34.81 Z3A.16 [id number] [facility] [address] [address] 01/22/2023 08:56:53 01/22/2023 09:44:13 Threatened miscarriage 46496376 O20.0 O26.852 Z3A.16 [id number] [facility] [address] [address] 02/14/2023 15:12:23 02/14/2023 16:27:48 screening for malformation 207839080 Z36.3 [id number] Lorie Duran [facility] [address] [address] 02/14/2023 15:12:48 02/14/2023 17:24:47 Routine care 860563960 Z34.92 [id number] [facility] [address] [address] 03/14/2023 14:52:05 03/14/2023 16:24:56 Routine care 650917816 Z34.92 [id number] Lo Bose [place] [address] [address] 04/11/2023 15:46:14 04/11/2023 16:30:26 Uterine size for dates discrepancy 692312184 O26.843 Z3A.28 [id number] Lorie Duran [facility] [address] [address] 04/11/2023 15:46:36 04/12/2023 19:23:11 Routine care 874829652 Z34.92 [id number] Lorie Duran [facility] [address] [address] 04/25/2023 14:59:33 04/25/2023 16:54:25 Routine care 278111581 Z34.92 [id number] Lorie Duran [facility] [address] [address] 05/09/2023 11:52:18 05/09/2023 12:23:02 Routine care 493180436 Z34.92 [id number] [facility] [address] [address] 05/09/2023 11:52:45 05/09/2023 13:47:05 Uterine size for dates discrepancy 037494792 O26.843 Z3A.32 [id number] Lorie Duran [facility] [address] [address] 05/21/2023 15:48:00 05/21/2023 16:39:12 Routine care 601771653 Z34.92 [id number] Susan Davis [place] [address] [place] [address] 07/04/2023 16:41:42 07/04/2023 17:01:06 care 482224878 Z39.2 normal pp visit f/u wwe 12/04 Health Concerns Section Related Observation LastModified by Organization Detai ls LastModified Time None Recorded Concern Status LastModified by Organization Details LastModified Time None Recorded Advance Directives Directive N: Payers Encounter Date Sequence Insurance Name Policy Number Policy Ramon Covered Member ID Ramon Member ID Guarantor Name 04/25/2023 1 [place] [id number] Santiago Hemalatha Campoverde [id number] Traci Campoverde 05/09/2023 1 [place] [id number] Santiago Campoverde [id number] Traci Campoverde 05/09/2023 1 [place] [id number] Santiago Campoverde [id number] Traci Campoverde 05/21/2023 1 [place] [id number] Santiago Campoverde [id number] Traci Campoverde 07/04/2023 1 [place] [id number] Santiago Hemalatha Campoverde [id number] Traci Campoverde Notes Date Note Type [...] fever; normal moodNotes:both girls doing well, declines [facility] Susan Davis [facility], [facility] 07/04/2023 17:06:36 OBGyn Episode Ob Episode Information Episode Created Date Number of Fetuses Patient Bloodtype Patient rh Status Prepregnancy Weight lbs Domestic Partner Domestic Partner Phone Father Name Medication Care Manager Status 08/10/19 21 1 O Positive 117 CLOSED Fetus Data First Name Last Name Admitted to NICU Weight (g) Sex Living Outcome Pediatric Complications Fetus ID Race Codes Race Delivery Type 2693.20 25 F true Full Term term mec. 7546 Vaginal Delivery Problems Problem Notes Problem Name Start Date End Date Resolution Snomed Code Not e Uterine size for dates discrepancy 672896648 S<<D, another growth at 34 weeks Gustavo Calculation Initial Gustavo Date Initial Exam Date Initial Exam Provider Initial Ultrasound Date Last Menstrual Period Date Ultra Sound Weeks Gestation 02/18/2021 08/10/2020 07/11/2020 04/13/2020 8 Eighteen To Twenty Week Gustavo Update Ultra Sound Date Fundal Height At Umbil Quickening Date Ultra Sound Latest Weeks Gestation Final Gustavo Confirmed By Final Gustavo Confirmed Date Final Gustavo Date Ultra Sound Latest Days Gestation 0 [...] Weight in lbs Pre/Post Dialysis Refused Weight 118.227020103509 BP Diastolic BP Location Tested BP Systolic [...] Weight in lbs Pre/Post Dialysis Refused Weight 119.264132993315 BP Diastolic BP Location Tested BP Systolic BP Type 67 98 Fetus Heart Rate Present Fetus Movement A No Comments patient is having some swell ing in armpit area, had us at pcp showed inflammation, no mass, scraper tender will try keflex, if still persists [...] Weight in lbs Pre/Post Dialysis Refused Weight 121.373522061727 BP Diastolic BP Location Tested BP Systolic [...] Weight in lbs Pre/Post Dialysis Refused Weight 125.621991543869 BP Diastolic BP Location Tested BP Systolic [...] Weight in lbs Pre/Post Dialysis Refused Weight 128.467086482135 BP Diastolic BP Location Tested BP Systolic [...] Weight in lbs Pre/Post Dialysis Refused Weight 131.516113040618 BP Diastolic BP Location Tested BP Systolic [...] Weight in lbs Pre/Post Dialysis Refused Weight 128.894334214566 BP Diastolic BP Location Tested BP Systolic [...] Weight in lbs Pre/Post Dialysis Refused Weight 133.637756835615 BP Diastolic BP Location Tested BP Systolic [...] Weight in lbs Pre/Post Dialysis Refused Weight 131.912907887831 BP Diastolic BP Location Tested BP Systolic [...] Weight in lbs Pre/Post Dialysis Refused Weight 132.525599544229 BP Diastolic BP Location Tested BP Systolic [...] Weight in lbs Pre/Post Dialysis Refused Weight 132.481465175479 BP Diastolic BP Location Tested BP Systolic [...] Weight in lbs Pre/Post Dialysis Refused Weight 133.701724465227 BP Diastolic BP Location Tested BP Systolic BP Type 77 116 Fetus Heart Rate Present Fetus Movement A Yes Comments patient states that having c ontractions and swelling. declines exam, plan MIL at 39-40 weeks per us reviewed by Dr. Pollock precautions reviewed Menstrual History Last Menstrual Date Menses Monthly On Bcp Conception Prior Menses Frequency Hcg Plus Date Menarche Onset Age 1004/13/2020 Genetic Screening And Infection History Question Response Note Mental Retardation/Autism false Patient's Age Will Be 35 Years Or Older At Estim ated Date of Delivery false Thalassemia (Finnish, Czech, Mediterranean, Or Background): MCV < 80 false Neural Tube Defect (Meningomyelocele, Spina Bifi da, Or Anencephaly) false Congenital Heart Defect false Down Syndrome false Sincere-Sachs (eg, Roman Catholic, Cajun, Palauan-Piscataquis) f alse Reyna Disease false Sickle Cell Disease Or Trait () false Hemophilia Or Other Blood Disorders false Muscular Dystrophy false Cystic Fibrosis false Micah's Chorea false Intellectual Disability/Autism false If Yes, [...] Domestic Partner Domestic Partner Phone Father Name Medication Care Manager Status 12/21/19 23 1 O Positive 121 bola CLOSED Fetus Data First Name Last Name Admitted to NICU Weight (g) Sex Living Outcome Pediatric Complications Fetus ID Race Codes Race Delivery Type Emry true 2211.26 1 F true Prematur e Vaginal Delivery Gustavo Calculation Initial Gustavo Date Initial Exam Date Initial Exam Provider Initial Ultrasound Date Last Menstrual Period Date Ultra Sound Weeks Gestation 07/03/2023 11/29/2022 11/07/2022 09/26/2022 6 Eighteen To Twenty Week Gustavo Update Ultra Sound Date Fundal Height At Umbil Quickening Date Ultra Sound Latest Weeks Gestation Final Gustavo Confirmed By Final Gustavo Confirmed Date Final Gustavo Date Ultra Sound Latest Days Gestation 0 07/03/20 23 0 Pre- Flowsheet Flowsheet Date 12/20/2022 Orellana Score Blood [...] Weight in lbs Pre/Post Dialysis Refused Weight 118.507674007138 BP Diastolic BP Location Tested BP Systolic [...] Weight in lbs Pre/Post Dialysis Refused Weight 123.508412688548 BP Diastolic BP Location Tested BP Systolic [...] Weight in lbs Pre/Post Dialysis Refused Weight 124.183784703476 BP Diastolic BP Location Tested BP Systolic [...] Weight in lbs Pre/Post Dialysis Refused Weight 129.451862736290 BP Diastolic BP Location Tested BP Systolic [...] Weight in lbs Pre/Post Dialysis Refused Weight [id number] BP Diastolic BP Location Tested BP Systolic [...] Weight in lbs Pre/Post Dialysis Refused Weight 131.702539824264 BP Diastolic BP Location Tested BP Systolic [...] Weight in lbs Pre/Post Dialysis Refused Weight 132.388295711090 BP Diastolic BP Location Tested BP Systolic [...] Weight in lbs Pre/Post Dialysis Refused Weight 135.96708677010 BP Diastolic BP Location Tested BP Systolic [...] At Estimated Date of Delivery false Thalassemia (Finnish, Czech, Mediterranean, Or Background): MCV < 80 false Neural Tube Defect (Meningom yelocele, Spina Bifida, Or Anencephaly) false Congenital Heart Defect false Down Syndrome false Sincere-Sachs (eg, Roman Catholic, Cajun, [place]an[place]) f alse Reyna Disease false Sickle Cell Disease Or Trait () false Hemophilia Or Other Blood Disorders false Muscular Dystrophy false Cystic Fibrosis false [place]'s Chorea false Intellectual Disability/Autism false If Yes, [...] Sterilization Discharge Date Comments 3 Sponta neous [facility]- idural 35.1 true Lorie Duran CN PTL Discharge Information Feeding Method Contraceptive Method Maternal HG B and HCT Levels Ob Episode Information Episode Created Date Number of Fetuses Patient Bloodtype Patient rh Status Prepregnancy Weight lbs Domestic Partner Domestic Partner Phone Father Name Medication Care Manager Status 07/06/20 22 1 CLOSED Fetus Data First Name Last Name Admitted to NICU Weight (g) Sex Living Outcome Pediatric Complications Fetus ID Race Codes Race Delivery Type , Spontane ous [id number] Gustavo Calculation Initial Gustavo Date Initial Exam Date Initial Exam Provider Initial Ultrasound Date Last Menstrual Period Date Ultra Sound Weeks Gestation 0 Eighteen To Twenty Week Gustavo Update Ultra Sound Date Fundal Height At Umbil Quickening Date Ultra Sound Latest Weeks Gestation Final Gustavo Confirmed By Final Gustavo Confirmed Date Final Gustavo Date Ultra Sound Latest Days Gestation 0 [...]
[2024-08-12 08:56] LABS: EDCOVIDSCREEN Negative (Negative); EDINFLUASCREEN Negative (Negative); EDINFLUBSCREEN Negative (Negative)
== END 2024-08-12 08:58 | disposition home or self-care (01) ==
PROVIDERS: Emergency Provider Nurse Practitioner Family
DX: B34.9 Viral infection, unspecified (principal); Z20.822 Contact with and (suspected) exposure to COVID-19
CPT/HCPCS: 87426; 87804; 99212; G0463

== ENCOUNTER 2024-12-10 01:20 | Day surgery (SDC) | payer BC, SELFPAY ==
[2024-12-02 12:22] VITALS: BMI 20.9
--- OUTSIDE RECORDS SUMMARY | 2024-12-10 01:22 | XMS_ITS | Clinical Summary ---
Author Organization [facility] Address [address] [place] [address] Care Team Providers Care Riddler Operator Name Role Phone Unavailable Primary Care Provider Unavailabl e Source Comments [facility],non-owned Affiliates and Associated Physician Practices is amultiple site organization consisting of ambulatory clinics and hospital sitesin [place], [place], [place] and [place]. This disclosure is being madepursuant to the Care Everywhere program and may not contain all information available regarding this patient. Last updated 18.[facility] Allergies No known active allergies Medications * Be aware that medications may not be up to date on this document. Alwaysverify current medications with the patient. No known medications Social History Tobacco Use Types Packs/Day Years Used Date Smoking Tobacco: Never Smokeless Tobacco: Never Comments Unknown Sex and Gender Information Value Date Recorded Sex Assigned at Not on file Legal Sex Female 9:23 AM CDT Gender Identity Not on file Sexual Orientation Not on file Last Filed Vital Signs Vital Sign Reading Time Taken Comments Blood Pressure 110/60 12/18/2017 9:31 AM CDT Pulse 74 12/18/2017 9:31 AM CDT Temperature 36.8 C (98.3 F) 12/18/2017 9:31 AM CDT Respiratory Rate 16 12/18/2017 9:31 AM CDT Oxygen Saturation 99% 12/18/2017 9:31 AM CDT Inhaled Oxygen Concentration - - Weight 52.2 kg (115 lb) 12/18/2017 9:31 AM CDT Height 160 cm (5' 3) 12/18/2017 9:31 AM CDT Body Mass Index 20.37 12/18/2017 9:31 AM CDT Plan of Treatment Health Maintenance Due Date Last Done Comments HIV SCREENING 2008 HEPATITIS C SCREENING 06/07/2011 DTAP/TDAP/TD VACCINES (1 - Tdap) 2012 HEPATITIS B VACCINE (1 of 3 - 19+ 3-dose series) 2012 COVID-19 VACCINE (1 - 2023-2 5 season) 2024 DEPRESSION SCREENING 07/14/2024 INFLUENZA VACCINE (Season Ended) 2025 ZOSTER VACCINE (1 of 2) 2043 HIB VACCINE Aged Out No longer eligi ble based on patient's age to complete this topic HPV VACCINE Aged Out No longer eligi ble based on patient's age to complete this topic MENINGOCOCCAL (Group B) VACC INE SHARED DECISION-MAKING Aged Out No longer eligibl e based on patient's age to complete this topic MENINGOCOCCAL GROUPS A/C/Y/W VACCINE Aged Out No longer eligible b ased on patient's age to complete this topic PNEUMOCOCCAL VACCINE Aged Out No long er eligible based on patient's age to complete this topic Insurance [employer]
--- OUTSIDE RECORDS SUMMARY | 2024-12-10 01:22 | XMS_ITS | Clinical Summary ---
Author Organization [facility] Address [address] [address] Phone Care Team Providers Care Crust Sorter Name Role Phone Provider, None Primary Care [...] Comments Blood Pressure 100/72 07/18/2021 3:50 PM CRUST SORTER Pulse 101 07/18/2021 3:50 PM CRUST SORTER Temperature 36.7 C (98.1 F) 07/18/2021 3:50 PM CRUST SORTER Respiratory Rate 16 07/18/2021 3:50 PM CRUST SORTER Oxygen Saturation 98% 07/18/2021 3:50 PM CRUST SORTER Inhaled Oxygen Concentration - - Weight 54 kg (119 lb) 08/11/2020 4:05 PM CRUST SORTER Height 160 cm (5' 3) 08/11/2020 4:05 PM CRUST SORTER Body Mass Index 21.08 08/11/2020 4:05 PM CRUST SORTER Plan of Treatment Health Maintenance Due Date Last Done Comments Hepatitis C Virus (HCV) Screening 1993 TdaP Immunization 1993 Hepatitis B Immunization (1 of 3 - 19+ 3-dose series) 2012 Influenza Immunization (#1) 2024 SARS-COV-2 Immunization (1 - 2023- season) 2024 Respiratory Syncytial Virus (RSV) Immunization (Adult) (1 - 1-dose 75+ series) 2068 Meningococcal Immunization (ACWY) Aged Out No longer eligible based on patient's age to complete this topic Pneumococcal Immunization Combined Aged Out No longer eligible based on patient's age to complete this topic Rotavirus Immunization Aged Out No lo nger eligible based on patient's age to complete this topic Insurance [facility] Care Teams Crust Sorter Relationship Specialty Start Date End Date Provider, None [place] PCP - General 12/28/20
--- OUTSIDE RECORDS SUMMARY | 2024-12-10 01:22 | XMS_ITS | Referral Summary ---
Author Organization [address] Address [address] [place] [address] [place] [address] Care Team Providers Care Extractor Puller Name Role Phone No, Physician Primary Care Provider [phone] Allergies No known active allergies Medications No [...] on file Legal Sex Female 7:22 PM ROLL ICER Gender Identity Not on file Sexual Orientation Not on file Last Filed Vital Signs Vital Sign Reading Time Taken Comments Blood Pressure - - Pulse - - Temperature - - Respiratory Rate - - Oxygen Saturation - - Inhaled Oxygen Concentration - - Weight 56.7 kg (125 lb) 11/08/2020 8:32 AM CDT Height 160 cm (5' 3) 11/08/2020 8:32 AM CDT Body Mass Index 22.14 11/08/2020 8:32 AM CDT Plan of Treatment Not on file Insurance [facility] [place] [address] [facility] Care Teams Extractor Puller Relationship Specialty Start Date End Date No, Physician PCP - General 10/10/20
--- OUTSIDE RECORDS SUMMARY | 2024-12-10 01:22 | XMS_ITS | Data Portability ---
Author Organization [facility] Address [address] [place] [address] Care Team Providers Care Antenna Rigger Name Role Phone SIMON MADRID Primary Care Provider Assessment Encounter Date Assessment Date Assessment LastModified by Organization Details LastModified Time 05/09/2023 05/09/2023 Patient is __32_weeks . Discussed plan. Not available 05/09/2023 12:00:16 05/21/2023 05/21/2023 Patient is __33_weeks . Discussed plan. Not available 05/21/2023 16:32:44 11/05/2024 11/05/2024 Annual gynecological exam performed. Patient will come back in a year unless there are new symptoms. Suggest Calcium with Vitamin D if not eating in diet. Patient advised to get annual flu shot. Recommend yearly physicals and preform monthly breast exams. Genetic testing is available for patients with family history of cancer. Engage in safe sexual practices, use condoms. Encouraged to have daily exercise. Avoid tobacco and illicit drugs, moderation of alcohol. If BMI greater than 25 dietary consult advised. If you have any questions please call or email. pap up to date Not available 11/05/2024 17:13:41 Plan of Treatment Reminders Order Date Submit Date Provider Last Modified By Organization Details Last Modified Time Details Appointments None record ed. Lab None record ed. Referral None record ed. Procedures None record ed. Surgeries None record ed. Imaging US, obstet pauly, follow -up 023 05/09/20 23 [email or web address] [place], [address], [place], [address], 21:55:49 Medication Orders None record ed. Patient TargetsNo targets recorded. Patient InstructionsNo instructions recorded. Reason for Referral None Reported. Results Created Date Observation Date Name Description Value Unit Range Abnormal Flag Note LastModifiedBy Organization Detail LastModifiedTime 04/11/2004/11/2023 HEMAT OCRIT (HCT) HCT 30.7 % (based on docume nted legal sex) 37.4-4 8.3 low Not Available [facility] (Lab) [address], [place], [address], 04/12/2023 07:26:50 04/11/2004/11/2023 HEMOG LOBIN (HGB) HGB 10.0 g/dL (based on docume nted legal sex) 11.9-1 5.8 low Not Available [facility] (Lab) [address], [place], [address], 04/12/2023 07:26:51 04/11/20 23 04/11/2023 GTT - GESTA LETTY L SCREE N, ACOG OB glucose, 1 hour screen 94 mg/dL 70-139 Not Available [facility] (Lab) [address], [place], [address], 04/12/2023 07:26:51 04/11/2004/11/2023 HIV 1/2 ANTIG EN/AN TIBOD Y, REFLE X CONFI RMATI ON HIV antigen/anti body Nonrea ctive nonrea ctive HIV-1 antig en and HIV-1 /HIV- 2 antib odies were not detec abdiaziz. No labor atory evide nce of HIV infec tion. Not Available [facility] (Lab) [address], [place], [address], 04/12/2023 07:26:51 04/11/2004/11/2023 US, obste tric, follo w-up No observ ation record ed. [facility] [place] [address], [place], [address], 04/11/2023 16:41:00 04/11/20 23 04/11/2023 US, obste tric, follo w-up No observ ation record ed. rebecca Nola [address], [place], [address], 04/14/2023 10:39:05 05/09/20 23 05/09/2023 US, obste tric, follo w-up No observ ation record ed. IOANA Nola [address], [place], [address], 05/12/2023 10:20:22 05/09/20 23 05/09/2023 US, obste tric, follo w-up No observ ation record ed. [facility] [address], [place], [address], 05/09/2023 18:03:25 05/30/20 23 05/29/2023 US, obste tric, follo w-up No observ ation record ed. [address] [facility], [place], [address], 05/30/2023 10:48:13 05/30/20 23 05/29/2023 US, obste tric, follo w-up No observ ation record ed. [address] [place] [address], [address], 05/30/2023 10:50:49 Result Notes None recorded. Problems Name Problem SNOMED Code Status Onset Date Resolution Date Notes Provider Name and Address Organization Details Recorded Time 29381635 Completed 201902/19/2021 Jerry cervantes, [facility] 13:53:08 Uterine size for dates discrepancy 919896316 Completed S< Aury cervantes, [facility] 1 15:02:33 81175549 Completed 202206/19/2023 Jerry cervantes [facility] 3 13:53:07 Problem Notes None recorded. Procedures Surgical History Date Name Laterality Status Provider Name and Address Organization Details Recorded Time 11/29/2022 Date of Last Pap Smear completed Susan Davis [facility] 11/29/2022 16:37:08 Imaging Results None recorded. Procedure Notes None recorded. Medical Equipment None [...] completed Not Available Not Available Not Available erythromyci n 5 mg/gram (0.5 %) eye ointment APPLY TO AFFECTED EYE EVERY 6 HOURS FOR 7 DAYS 11/05 completed Not Available Not Available Not Available dexamethaso ne 4 mg tablet TAKE 8 MG (2 X 4 MG TABS) ORALLY ONCE 11/05 completed Not Available Not Available Not Available ibuprofen 600 mg tablet 600 MG ORALLY EVERY 6 HOURS NEEDED FOR CRAMPING 11/05 completed Not Available Not Available Not Available loratadine 10 mg tablet TAKE 1 TABLET BY MOUTH EVERY DAY FOR 14 DAYS 11/05 completed Not Available Not Available Not Available amoxicillin 875 mg-potassiu m clavulanate 125 mg tablet TAKE 1 TABLET BY MOUTH EVERY 12 HOURS 11/05 completed Not Available Not Available Not Available 11/05 completed Not Available Not Available Not Available Vitals Date Recorded Body weight Body mass index (BMI) Body height Systolic blood pressure Diastolic blood pressure Provider Name and Address Organization Details Last Updated DateTime 11/05/2024 24500.49 g 21.1 kg/m2 160.02 cm 116 mm[Hg] 78 mm[Hg] Susan Davis [facility] 5 16:43:09 Date Recorded Body height Body mass index (BMI) Body weight Systolic blood pressure Diastolic blood pressure Provider Name and Address Organization Details Last Updated DateTime 05/09/2023 160.02 cm 23.4 kg/m2 95403.91 1314 g 106 mm[Hg] 71 mm[Hg] Laura Merinose [facility] 3 11:58:00 Date Recorded Body height Body mass index (BMI) Body weight Systolic blood pressure Diastolic blood pressure Provider Name and Address Organization Details Last Updated DateTime 05/21/2023 160.02 cm 23.9 kg/m2 11631.96 995 g 95 mm[Hg] 66 mm[Hg] Susan Davis [facility] 3 16:23:34 Date Recorded Body height Body mass index (BMI) Body weight Systolic blood pressure Diastolic blood pressure Provider Name and Address Organization Details Last Updated DateTime 07/04/2023 160.02 cm 20.5 kg/m2 88158.71 g 133 mm[Hg] 91 mm[Hg] Susan Davis [facility] 16:51:50 Social History Question Answer Notes LastModified by Organizat ion Details LastModified Time Tobacco Smoking Status Never Smoker Susan Davis [facility], [facility] 07/04/2023 17:04:29 Do You Have An Advance Directive? No [email or web address] Information n ot available 07/04/2023 If You Are , What Was Your Level Of Alcohol Consumption Prior To ? Occasional [email or web address] Information not available 07/04/2023 Are You Blind Or Do You Have Difficulty Seeing? No [email or web address] Information n ot available 07/04/2023 What Is Your Level Of Caffeine Consumption? Occasional [email or web address] Information not available 07/04/2023 In The 14 Days Before Symptom Onset, Have You Had Close Contact With A Laboratory-confirm ed COVID-19 While That Case Was Ill? No [email or web address] Information n ot available 07/04/2023 In The 14 Days Before Symptom Onset, Have You Had Close Contact With A Person Who Is Under Investigation For COVID-19 While That Person Was Ill? No [email or web address] Information not available 07/04/2023 Have You Been To An Area Known To Be High Risk For COVID-19? No [email or web address] Information not available 07/04/2023 Are You Deaf Or Do You Have Serious Difficulty Hearing? No [email or web address] Information not available 07/04/2023 What Type Of Diet Are You Following? REGULAR [email or web address] Information n ot available 07/04/2023 What Is The Highest Grade Or Level Of School You Have Completed Or The Highest Degree You Have Received? WW08518-5 [email or web address] Information not available 07/04/2023 Are There Any Guns Present In Your Home? Yes fwkgsumq52 Information not available 07/04/2023 Have You Ever Been Counseled For Unhealthy Alcohol Use? No [email or web address] Information not available 07/04/2023 Do You Use Protection During Sex? No [email or web address] Information not available 07/04/2023 Do You Use Your Seat Belt Or Car Seat Routinely? Yes [email or web address] Information not available 07/04/2023 Do You Have Smoke And Carbon Monoxide Detectors In Your Home? Yes emwbukmw11 Information not available 07/04/2023 How Much Tobacco Do You Smoke? No zusndjdt05 Information not available 07/04/2023 Do You Use Sunscreen Routinely? Yes eunxuinb26 Information not available 07/04/2023 Has Tobacco Cessation Counseling Been Provided? No fxsvimao70 Information not available 07/04/2023 Have You Used IV Drugs? No [email or web address] Information not available 07/04/2023 Do You Have Difficulty Walking Or Climbing Stairs? No [email or web address] Information not available 07/04/2023 Sex: Unknown Functional Status Question Answer Note LastModified by Organizat ion Details LastModified Time Do you use any illicit or recreational drugs? No oadsehsy75 Information not available 07/04/2023 Do you or have you ever used any other forms of tobacco or nicotine? No zcunqewy27 Information not available 07/04/2023 What is your level of alcohol consumption? Occasional hdnacwbj38 Information not available 07/04/2023 Are you currently employed? Yes lvfunzuy53 Information not available 07/04/2023 Are you able to walk? YESWOREST uvlbixig37 Information not available 07/04/2023 Are you able to care for yourself? 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 No bhudfpcg31 Information not available 07/04/2023 What is your exercise level? Moderate nuyvhweh96 Information not available 07/04/2023 Mental Status Question Answer Note LastModified by Organization D etails LastModified Time Do you feel stressed (tense, restless, nervous, or anxious, or unable to sleep at night)? AF9891-2 [email or web address] Information not available 07/04/2023 Family History Relationship Description Onset Age of this Age Resolved Age Notes LastModified by Organization Details LastModified Time Maternal Aunt Malignant tumor of breast [email or web address] Not available 11/05 16:43:35 Maternal Aunt Malignant tumor of colon orgswwoy27 Not available 01/17 16:20:07 Mother Malignant tumor of cervix nvfxamjp70 Not available 01/17 16:20:07 Mother Hypertensive disorder rozeepve34 Not available 01/17 16:20:08 Maternal Grandmother Diabetes mellitus uvrlavaf20 Not available 01/17 16:20:08 Maternal Grandmother Hypercholest erolemia bzatjjdw14 Not available 01/17 16:20:08 Maternal Grandmother Hypertensive disorder kiewpgzt40 Not available 01/17 16:20:08 Paternal Aunt Malignant tumor of breast jcullklg27 Not available 11/05 16:43:35 Medical History Condition Response Allergies (Food, seasonal, [...] Gynecological History Statement/Question Response Date of LMP 11/05/2024 On BCP's at Conception? N N Was last menstrual period normal Y STIs/STDs N HPV Vaccine N Current Control Method None Age at First Child 25 Sexually Active? Y Date of Last Pap Smear 11/29/2022 Sexual Problems? N Desired Control Method None LMP Approximate N Obstetrics History GPAL:G 3 P 1 1 1 2 Type Value Full Term 1 Spontaneous 1 Premature 1 Living 2 Total 3 Past Encounters Encounter ID Performer Location Encounter Start Date Encounter Closed Date Diagnosis/Indication Diagnosis SNOMED-CT Code Diagnosis ICD10 Code Diagnosis Note [id number] Nanci Yu CNM [place] [address] [address] 07/11/2020 09:34:04 07/11/2020 11:21:54 Gynecologic examination 79684385 Z01.419 test positive 454678247 Z32.01 Risk factors addressed: Tobacco Cessation, Safe [...] Sequential Screen handout given and discussed with patient.Ch ildbirth classes recommende d.New OB sheet given. If previous , counseling .Pt verbalizes that she understand s the importance of above instructio ns.All questions were answered. Patient reminded to have annual well woman examinatio n and address preventati [facility] . [id number] Hunter Pollock MD [place] [address] [address] 07/11/2020 09:35:19 07/12/2020 08:53:46 [id number] Hunter Pollock MD [place] [place] [address],[place] [address] 08/10/2020 16:31:27 08/14/2020 10:56:53 Routine care 056844165 Z34.01 [id number] Hunter Pollock MD [place] [address],[place] [address] 08/10/2020 16:32:24 08/10/2020 17:37:29 screening 950679890 Z36.82 [id number] Lorie Duran [facility] [address],[place] [address] 09/08/2020 10:57:00 09/08/2020 11:27:33 Routine care 523771391 Z34.92 [facility] 344134270 R59.0 [id number] Hunter Pollock MD [place] [address],[place] [address] 09/08/2020 10:57:00 09/08/2020 11:27:33 [id number] Lorie Duran [facility] [address],[place] [address] 10/06/2020 11:57:59 10/06/2020 14:05:35 Routine care 469676477 Z34.92 [id number] Hunter Pollock MD [place] [address],[place] [address] 10/06/2020 11:57:29 10/06/2020 12:50:36 screening for malformation 010459660 Z36.3 [id number] Lorie Duran [facility] [address],[place] [address] 11/02/2020 11:19:35 11/02/2020 14:33:49 Routine care 938224291 Z34.92 [id number] Hunter Pollock MD [place] [address],[place] [address] 11/02/2020 11:19:05 11/02/2020 12:16:13 Low lying placenta 479922297 O44.40 Z3A.24 [id number] [facility] [address],[place] [address] 12/01/2020 13:24:59 12/01/2020 14:46:07 Routine care 595296364 Z34.92 [id number] Hunter Pollock MD [place] [address],[place] [address] 12/01/2020 13:24:29 12/01/2020 14:33:18 Uterine size for dates discrepancy 127961741 O26.843 Z3A.28 [id number] Nanci Yu [facility] [address],[place] [address] 12/14/2020 10:24:28 12/14/2020 11:48:35 Routine care 281500956 Z34.93 [id number] Carol Engel MD [place] [address],[place] [address] 12/29/2020 12:28:00 12/29/2020 12:45:55 Uterine size for dates discrepancy 362251935 O26.849 Routine an tenatal care 068183887 Z34.03 [id number] Hunter Pollock MD [place] [address],[place] [address] 01/11/2021 12:20:47 01/11/2021 12:57:49 Small for gestational age fetus 055080474 O36.5930 Z3A.34 [id number] [facility] [address],[place] [address] 01/12/2021 10:31:00 01/12/2021 13:23:44 Routine care 838677050 Z34.92 [id number] [facility] [address],[place] [address] 01/19/2021 12:18:56 01/19/2021 12:59:14 Routine care 996032869 Z34.92 [id number] Lorie Duran [facility] [address],[place] [address] 01/26/2021 10:11:28 01/26/2021 10:50:19 Routine care 712686283 Z34.92 [id number] Lorie Duran [facility] [address],[place] [address] 02/02/2021 10:05:46 02/02/2021 10:37:36 Routine care 566122489 Z34.92 [id number] Lorie Duran [facility] [address],[place] [address] 02/09/2021 10:09:13 02/09/2021 10:39:29 Routine care 608855681 Z34.92 [id number] Hunter Pollock MD [place] [address],[place] [address] 02/08/2021 12:12:51 02/08/2021 13:28:36 Uterine size for dates discrepancy 737552600 O26.843 Z3A.38 [id number] Lorie Duran [facility] [address],[place] [address] 03/21/2021 10:39:44 03/21/2021 12:36:30 care 622878235 Z39.2 [id number] Hunter Pollock MD [place] [address],[place] [address] 11/07/2022 16:59:14 11/07/2022 17:23:42 Uncertain viability of 206337866 O36.80X0 Z3A.01 [id number] Hunter Pollock MD [place] [address],[place] [address] 11/29/2022 15:55:15 11/29/2022 16:11:33 [id number] [facility] [address],[place] [address] 11/29/2022 15:55:43 12/02/2022 16:26:09 Amenorrhea 84962188 N91.2 reviewed office, precaution s and folder, ok to call if needs doppler or quick look on usreviewed us, small subchorion ic hemf/u new ob and first look in 3 weeks with panel and NIPS Gynecologi c examination 55461157 Z11.3 [id number] Lorie Duran CNM [place] [address],[place] [address] 11/05/2024 15:56:10 11/05/2024 17:26:44 Gynecologic examination 28078904 Z01.419 [id number] Hunter Pollock MD [place] [address],[place] [address] 12/20/2022 11:27:42 12/20/2022 13:42:21 screening 029790712 Z36.82 [id number] Lorie Duran CNM [place] [address],[place] [address] 12/20/2022 11:28:19 12/20/2022 12:49:13 Routine care 283627950 Z34.92 [id number] Lorie Duran CNM [place] [address] [address] 01/17/2023 16:07:21 01/20/2023 10:56:55 Routine care 933254195 Z34.81 Z3A.16 [id number] Hunter Pollock MD [place] [address],[place] [address] 01/22/2023 08:56:53 01/22/2023 09:44:13 Threatened miscarriage 97946201 O20.0 O26.852 Z3A.16 [id number] Hunter Pollock MD [place] [address],[place] [address] 02/14/2023 15:12:23 02/14/2023 16:27:48 screening for malformation 441041669 Z36.3 [id number] Lorie Duran CNM [place] [address],[place] [address] 02/14/2023 15:12:48 02/14/2023 17:24:47 Routine care 789879808 Z34.92 [id number] [facility] [address],[place] [address] 03/14/2023 14:52:05 03/14/2023 16:24:56 Routine care 837468637 Z34.92 [id number] Hunter Pollock MD [place] [address],[place] [address] 04/11/2023 15:46:14 04/11/2023 16:30:26 Uterine size for dates discrepancy 860173325 O26.843 Z3A.28 [id number] Lorie Duran [facility] [address] [address] 04/11/2023 15:46:36 04/12/2023 19:23:11 Routine care 425406916 Z34.92 [id number] [facility] [address],[place] [address] 04/25/2023 14:59:33 04/25/2023 16:54:25 Routine care 658435770 Z34.92 [id number] [facility] [address] [address] 05/09/2023 11:52:18 05/09/2023 12:23:02 Routine care 821174358 Z34.92 [id number] Hunter Pollock MD [place] [address] [place] [address] 05/09/2023 11:52:45 05/09/2023 13:47:05 Uterine size for dates discrepancy 885551142 O26.843 Z3A.32 [id number] [facility] [address],[place] [address] 05/21/2023 15:48:00 05/21/2023 16:39:12 Routine care 995361279 Z34.92 [id number] Lorie Duran CNM [place] [address] [address] 07/04/2023 16:41:42 07/04/2023 17:01:06 care 052240218 Z39.2 normal pp visit f/u wwe 12/04 Health Concerns Section Related Observation LastModified by Organization Detai ls LastModified Time None Recorded Concern Status LastModified by Organization Details LastModified Time None Recorded Advance Directives Directive N: Payers Encounter Date Sequence Insurance Name Policy Number Policy Ramon Covered Member ID Ramon Member ID Guarantor Name 05/09/2023 1 [employer] [id number] Santiago Hemalatha Campoverde [id number] Traci Campoverde 05/09/2023 1 [employer] [id number] Santiago Campoverde [id number] 35 Traci Campoverde 05/21/2023 1 [place] [id number] Santiago Hemalatha Campoverde [id number] Traci Campoverde 07/04/2023 1 [place] [id number] Santiago M Gilles [id number] Traci Campoverde 11/05/2024 1 [place] [id number] Santiago Campoverde [id number] Traci Campoverde Notes Date Note Type [...] fever; normal moodNotes:both girls doing well, declines m Susan Davis [facility], [facility] 07/04/2023 17:06:36 11/05/2024 text/html Annual GYNReport ed bypatient.History:n o gynecologic complaints; no change in interval history Menstrual cycle:Normal menses Urinary symptoms:No hematuria; No incontinence Vulva:No genital lesion Vagina:Normal vaginal discharge Breast:No breast pain; No breast lump; No nipple discharge Sexual complaints:No sexual complaints; No pain during intercourse; Normal libido Menopausal Symptoms:No menopausal symptoms; Normal vaginal lubrication Psychological symptoms:No depression; No anxiety; No PMDD Preventive measures:Encourage self breast examination; Encourage regular exercise; Encourage no tobacco useNotes:doing well! no complaints! Lorie Duran CNM [address], [place], [address], [facility] 11/05/2024 17:13:57 OBGyn Episode Ob Episode Information Episode Created Date Number of Fetuses Patient Bloodtype Patient rh Status Prepregnancy Weight lbs Domestic Partner Domestic Partner Phone Father Name [employer] Dealer Status 08/10/19 21 1 O Positive 117 CLOSED Fetus Data First Name Last Name Admitted to NICU Weight (g) Sex Living Outcome Pediatric Complications Fetus ID Race Codes Race Delivery Type 2693.20 25 F true Full Term term [facility]. 7546 Vaginal Delivery Problems Problem Notes Problem Name Start Date End Date Resolution Snomed Code Not e Uterine size for dates discrepancy 498295340 S<<D, another growth at 34 weeks Gustavo [...] Gestation 0 [email or web address] 08/10/2020 02/19/20 21 0 Pre- Flowsheet Flowsheet Date 07/11/2020 Orellana Score Blood [...] Weight in lbs Pre/Post Dialysis Refused Weight 118.879777384322 BP Diastolic BP Location Tested BP Systolic [...] Weight in lbs Pre/Post Dialysis Refused Weight 119.757434028483 BP Diastolic BP Location Tested BP Systolic BP Type 67 98 Fetus Heart Rate Present Fetus Movement A No Comments patient is having some swell ing in armpit area, had us at pcp showed inflammation, no mass, table tender sludge will try keflex, if still persists can [...] Weight in lbs Pre/Post Dialysis Refused Weight 121.654036684425 BP Diastolic BP Location Tested BP Systolic BP Type 53 91 Fetus Heart Rate Present Fetus Movement A Yes Comments PATIENT IS HAVING SOME SWELL ING UNDER ARM PIT AND SWELLING IN FEET, anatomy complete (female), LLP rpt in 4 weeks, send to breast specialist, zaida no resolution Flowsheet Date 11/02/2020 Orellana Score [...] Weight in lbs Pre/Post Dialysis Refused Weight 125.499190539180 BP Diastolic BP Location Tested BP Systolic [...] Weight in lbs Pre/Post Dialysis Refused Weight 128.257715697469 BP Diastolic BP Location Tested BP Systolic [...] Weight in lbs Pre/Post Dialysis Refused Weight 131.699746124802 BP Diastolic BP Location Tested BP Systolic [...] Weight in lbs Pre/Post Dialysis Refused Weight 128.313472311408 BP Diastolic BP Location Tested BP Systolic [...] Weight in lbs Pre/Post Dialysis Refused Weight 133.756209172332 BP Diastolic BP Location Tested BP Systolic [...] Weight in lbs Pre/Post Dialysis Refused Weight 131.868021133205 BP Diastolic BP Location Tested BP Systolic [...] Weight in lbs Pre/Post Dialysis Refused Weight 132.451999200319 BP Diastolic BP Location Tested BP Systolic [...] Weight in lbs Pre/Post Dialysis Refused Weight 132.705648460507 BP Diastolic BP Location Tested BP Systolic [...] Weight in lbs Pre/Post Dialysis Refused Weight 133.272848996178 BP Diastolic BP Location Tested BP Systolic [...] Estim ated Date of Delivery false Thalassemia (Hong Konger, Japanese, Mediterranean, Or Background): MCV < 80 false Neural Tube Defect (Meningomyelocele, Spina Bifi da, Or Anencephaly) false Congenital Heart Defect false Down Syndrome false Sincere-Sachs (eg, Worship, Cajun, Egyptian-Singaporean) f alse Reyna Disease false Sickle Cell Disease Or Trait () false Hemophilia Or Other Blood Disorders false Muscular Dystrophy false Cystic Fibrosis false [place]'s Chorea false Intellectual Disability/Autism false If Yes, [...] Domestic Partner Domestic Partner Phone Father Name [employer] Dealer Status 12/21/19 23 1 O Positive 121 [...] Weight in lbs Pre/Post Dialysis Refused Weight 118.315648789622 BP Diastolic BP Location Tested BP Systolic [...] Weight in lbs Pre/Post Dialysis Refused Weight 123.316604122344 BP Diastolic BP Location Tested BP Systolic [...] Weight in lbs Pre/Post Dialysis Refused Weight 124.238461480315 BP Diastolic BP Location Tested BP Systolic [...] Weight in lbs Pre/Post Dialysis Refused Weight 129.282740249814 BP Diastolic BP Location Tested BP Systolic [...] Weight in lbs Pre/Post Dialysis Refused Weight 130.913187743461 BP Diastolic BP Location Tested BP Systolic [...] Weight in lbs Pre/Post Dialysis Refused Weight 131.826725707224 BP Diastolic BP Location Tested BP Systolic [...] Weight in lbs Pre/Post Dialysis Refused Weight 132.970196814626 BP Diastolic BP Location Tested BP Systolic [...] Weight in lbs Pre/Post Dialysis Refused Weight 135.97738784059 BP Diastolic BP Location Tested BP Systolic [...] At Estimated Date of Delivery false Thalassemia (Hong Konger, Japanese, Mediterranean, Or Background): MCV < 80 false Neural Tube Defect (Meningom yelocele, Spina Bifida, Or Anencephaly) false Congenital Heart Defect false Down Syndrome false Sincere-Sachs (eg, Worship, Cajun, Egyptian-Singaporean) f alse Reyna Disease false Sickle Cell Disease Or Trait () false Hemophilia Or Other Blood Disorders false Muscular Dystrophy false Cystic Fibrosis false [place]'s Chorea false Intellectual Disability/Autism false If Yes, [...] Comments 3 Sponta neous [facility]-Ep id[facility] 35.1 Lorie Serna CNM PTL Discharge Information Feeding Method Contraceptive Method Maternal HG B and HCT Levels Ob Episode Information Episode Created Date Number of Fetuses Patient Bloodtype Patient rh Status Prepregnancy Weight lbs Domestic Partner Domestic Partner Phone Father Name Wheel [employer] Fortune Dealer Status 07/06/20 22 1 CLOSED Fetus Data First Name Last Name Admitted to NICU Weight (g) Sex Living Outcome Pediatric Complications Fetus ID Race Codes Race Delivery Type , Spontane ous [id number] Gustavo Calculation Initial Gustavo Date Initial Exam [...]
--- OUTSIDE RECORDS SUMMARY | 2024-12-10 01:22 | XMS_ITS | Clinical Summary ---
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
--- NOTE | 2024-12-10 07:15 | WPDANESEPPF ---
Anes - Initial Pre Proc Eval Procedure: Operation Date: 12/10/24 08:30 Proposed Procedures p Colonoscopy - Yash Escobedo MD Date/Time: 12/10/24 07:15 Surgeon: Yash Escobedo MD Pre Op Diagnosis: Family history of malignant neoplasm of digestive Patient Data Age: 29 Gender: F Height: 1.6 m Weight: 53.6 kg Allergies Allergy/AdvReac Type Severity Reaction Status Date / Time No Known Allergies Allergy Verified 12/10/24 07:19 Home Medications ?Medication ?Instructions ?Recorded ?Confirmed ?Type No Home Medications 12/02/24 12/02/24 History Patient hx anesthesia problems: none Family hx anesthesia problems: none Results Review: All pre-operative results and documents have been reviewed as part of the pre-operative evaluation. [facility] Past Medical History Medical History No pertinent past medical history Surgical History Surgical History No pertinent past surgical history Family History Family History (Updated 10/13/24 @ 16:29 by Kemi Rees MA) Mother Cancer Hypertension Grandparent Diabetes mellitus Heart disease Hypertension Cerebrovascular accident Social History Social History (Updated 10/13/24 @ 16:30 by Kemi Rees MA) Smoking status: Never smoker Second hand tobacco smoke exposure: No Substance use: never Do You Feel Safe in your Home?: Yes Lack of Transportation: No Lack of Food: Never True Current Housing: I Have Housing Concerned About Future Housing: No Difficulty Paying Gas/Electric Bills: No Difficulty Paying for Meds: No Currently Unemployed: No Education: Trade/Vocational Certificate Difficulty w/ Childcare or Family Care: No Living arrangements: with family 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 Gender identity (if verbalized by the patient): Female Spiritual care concerns: No Agree to blood products: Yes Anes - Eval Final PreProcedure Day of Procedure 12/10/24 07:15 Patient weight: normal Heart: regular rate and rhythm Lungs: clear to auscultation and normal air movement Airway: Mallampati scale class II Neurological: alert and oriented Last oral intake: >/= 8 hours ASA classification: I Emergent: no Anesthetic plan: proceed Anesthesia type and monitoring: general GIVS and standard monitoring Results Review: All pre-operative results and documents have been reviewed as part of the pre-operative evaluation. Informed Consent: The patient's anesthetic plan and its attendant risks and benefits were discussed with the patient/family/POA. Questions were solicited and answers provided to the satisfaction of the patient/family/POA.
[2024-12-10 07:20] VITALS: BP 104/74; PULSE 86; RESP 16; TEMP 36.8; O2SAT 100
[2024-12-10] MEDS: LACTATED RINGERS 1,000 ML 150 ML IV CONT (07:29)
--- NOTE | 2024-12-10 08:10 | PM.HPGS ---
History of Present Illness History of Present Illness Consent: Risks, benefits, and alternatives have been discussed and questions answered. Patient agrees to proceed with procedure. Chief complaint: Family history of malignant neoplasm of digestive Narrative: Traci Campoverde is a 29 year old female here for first colonoscopy, chronic diarrhea Review of Systems Review of Systems: All systems reviewed & are unremarkable except as noted in HPI and below PMFSH Past Medical History Medical History No pertinent past medical history Surgical History Surgical History No pertinent past surgical history Family History Family History (Updated 10/13/24 @ 16:29 by Kemi Rees MA) Mother Cancer Hypertension Grandparent Diabetes mellitus Heart disease Hypertension Cerebrovascular accident Social History Social History (Updated 10/13/24 @ 16:30 by Kemi Rees MA) Smoking status: Never smoker Second hand tobacco smoke exposure: No Substance use: never Do You Feel Safe in your Home?: Yes Lack of Transportation: No Lack of Food: Never True Current Housing: I Have Housing Concerned About Future Housing: No Difficulty Paying Gas/Electric Bills: No Difficulty Paying for Meds: No Currently Unemployed: No Education: Trade/Vocational Certificate Difficulty w/ Childcare or Family Care: No Living arrangements: with family 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 Gender identity (if verbalized by the patient): Female Spiritual care concerns: No Agree to blood products: Yes Meds Home Medications and Allergies Home Medications ?Medication ?Instructions ?Recorded ?Confirmed ?Type No Home Medications 12/02/24 12/02/24 History Allergies Allergy/AdvReac Type Severity Reaction Status Date / Time No Known Allergies Allergy Verified 12/10/24 07:19 Vital Signs Vital Signs - 24 hr 12/10/24 07:20 Temperature 98.2 F Pulse Rate 86 Respiratory Rate 16 Blood Pressure 104/74 Pulse Oximetry 100 Oxygen Delivery Room Air Exam Const: General: comfortable and no acute distress HENMT: Face/Nose/Sinus: Normal nares present Eyes: General: appearance normal, both eyes and all related structures Neck: Neck: no JVD Resp: Auscultation: clear to auscultation bilaterally Cardio: Rate: regular rate Rhythm: regular rhythm GI: Inspection: non-distended GI Palp: Yes Soft to palpation Skin: General skin exam: normal color Neuro: General: gait normal Speech: normal speech Extrem: General: normal to inspection Psych: Mental Status: mental status grossly normal Assessment and Plan Assessment and plan (1) Chronic diarrhea: Code(s): K52.9 - Noninfective gastroenteritis and colitis, unspecified Status: Acute Assessment and Plan: colonoscopy with random colon bx
--- NOTE | 2024-12-10 08:19 | S_PTH ---
PATIENT: Traci Campoverde LOC: [facility]#:[id number] AGE/SX: 29/F ROOM: RE12/10/[address]: Yash Escobedo MD : 1995 BED: DIS: 12/10/2024 SPEC #: [id number] RECD: 12/10/24 09:04 STATUS: JEREMÍAS GARDNER #: [id number] KVNG: 12/10/24 08:[address]: Yash Escobedo DEPT: [facility] Surgical RECD BY: Hanna Ghotra ENTERED: 12/10/24 09:04 SP TYPE: Surgical OTHR DR: Mayra Turpin APRN Tissues: A - Colon Biopsy Procedures: Hematoxylin and Eosin Stain Gross and Microscopic Level 4
[2024-12-10 08:21] VITALS: BP 99/55; PULSE 82; RESP 15; O2SAT 100
[2024-12-10 08:21] LABS: BEDSIDEPREGUCG Negative (Negative)
[2024-12-10 08:31] VITALS: BP 97/55; PULSE 82; RESP 22; O2SAT 100
[2024-12-10 08:41] VITALS: BP 106/76; PULSE 63; RESP 23; O2SAT 100
== END 2024-12-10 08:50 | disposition home or self-care (01) ==
PROVIDERS: PCP Nurse Practitioner Adult Health; Referring Provider Nurse Practitioner Adult Health; Visit Provider Internal Medicine Gastroenterology
PROC: 0DJD8ZZ Inspection of Lower Intestinal Tract, Via Natural or Artificial Opening Endoscopic (ICD-10-PCS; CPT 45378; principal; 2024-12-10 08:30)
DX: R19.7 Diarrhea, unspecified (principal); K64.8 Other hemorrhoids
CPT/HCPCS: 45380; 88305; J2704; J7120